=== PATIENT | female | born 1950 | race Caucasian/White ===

== ENCOUNTER 2019-07-23 01:44 | Day surgery (SDC) | payer MEDICARE, SELFPAY ==
[2019-07-08 11:46] VITALS: BMI 29.0
[2019-07-23] VITALS (10 sets, daily range): BP systolic 118–189; BP diastolic 59–85; PULSE 56–70; RESP 12–23; TEMP 36.6–36.7; O2SAT 94–100
--- NOTE | 2019-07-23 08:37 | WPDANESEPPF ---
Anes - Initial Pre Proc Eval Procedure: Operation Date: 07/23/19 09:30 Proposed Procedures p Laparoscopic Cholecystectomy, Possible Open - Boston Alvarez MD Date/Time: 07/23/19 08:37 Surgeon: Boston Alvarez MD Pre Op Diagnosis: Chronic Cholecystitis With Stones Patient Data Age: 68 Gender: F Height: 5 ft 6 in Weight: 77.2 kg Allergies Allergy/AdvReac Type Severity Reaction Status Date / Time atenolol Allergy Unknown Dyspnea / Verified 07/08/19 11:43 SOB iodine Allergy Unknown Other Verified 07/08/19 11:43 Penicillins Allergy Unknown Unknown Verified 07/08/19 11:43 - A CHILD Home Medications Medication Instructions Recorded Confirmed Type amlodipine 10 mg tablet 10 mg PO HS 05/01/19 07/08/19 History levothyroxine 75 mcg tablet 75 mcg PO DAILY 05/01/19 07/08/19 History magnesium gluconate 30 mg (550 mg) 30 mg PO DAILY 05/01/19 07/08/19 History tablet multivitamin 1 cap PO DAILY 05/01/19 07/08/19 History losartan-hydrochlorothiazide 1 tablet PO HS 07/08/19 07/08/19 History Patient hx anesthesia problems: none Family hx anesthesia problems: none [facility] Past Medical History Medical History 1st degree AV block Cholelithiases BRADLEY (dyspnea on exertion) Dyslipidemia Ectopic atrial rhythm Essential hypertension GERD (gastroesophageal reflux disease) Obstructive sleep apnea Surgical History Surgical History H/O: hysterectomy Hx of tonsillectomy S/P removal of thyroid nodule Family History Family History Father Family history of malignant neoplasm Grandparent Family history of Parkinson's disease Social History Social History Smoking status: Never smoker Alcohol intake: current Anes - Eval Final PreProcedure Day of Procedure 07/23/19 08:37 Patient weight: overweight Heart: regular rate and rhythm Lungs: clear to auscultation Airway: Mallampati scale class II Neurological: alert and oriented Last oral intake: >/= 8 hours ASA classification: II Emergent: no Anesthetic plan: proceed Anesthesia type and monitoring: general ETT and standard monitoring Informed Consent: The patient's anesthetic plan and its attendant risks and benefits were discussed with the patient/family/POA. Questions were solicited and answers provided to the satisfaction of the patient/family/POA.
[2019-07-23] MEDS: LACTATED RINGERS 1,000 ML 30 ML IV CONT ×2 (08:45→10:37)
--- NOTE | 2019-07-23 08:45 | WPDHPUPDATE1 ---
History and Physical Update Update Date/Time: 07/23/19 08:45 History and Physical has been reviewed, including an updated exam of the patient. There are NO changes in the patient's condition. Risks, benefits, and alternatives have been discussed and questions answered. Patient agrees to proceed with procedure.
--- NOTE | 2019-07-23 08:52 | PM.PROC ---
Procedure Note - Detailed Date of procedure: 07/23/19 Pre-op diagnosis: Chronic Cholecystitis With Stones Chronic cholecystitis, cholelithiasis Post-op diagnosis: same Procedure performed: Laparoscopic cholecystectomy Description of procedure: The patient was taken to surgery and induced into general anesthesia. The abdomen was prepped and draped. Trocars were placed in the usual fashion using 0.5% Marcaine with epinephrine and applied Medical optical trocars. A 5 millimeter camera was used. The gallbladder was decompressed with a laparoscopic aspirator. The cholecystotomy was closed with a Vicryl endo-loop. There were many stones in the gallbladder. There were numerous adhesions to the gallbladder which had to be taken down before we could retracted adequately. The gallbladder wall was thickened due to chronic inflammation. The gallbladder was retracted anterosuperiorly. Adhesions to the gallbladder were taken down so that the cholecystohepatic triangle was exposed. Traction was placed on the infundibulum. The cystic duct and cystic artery were dissected out very clearly. The gallbladder was dissected off the liver at its lower 3rd. Critical view was achieved. We securely clipped and divided the cystic duct and cystic artery. The gallbladder was then further retracted so that the peritoneal attachments to the liver could be divided. Once the gallbladder was freed entirely, it was placed in an Endo-Catch bag and retrieved through the 10 11 epigastric trocar site. The epigastric trocar was then replaced. We reviewed the right upper quadrant. It was irrigated and suctioned. All looked good with no evidence of bleeding or bile leakage. We evacuated CO2 and removed the trocar sleeves. The fascia at the epigastric trocar site was closed with 0 Vicryl suture. Skin wounds were closed with subcuticular 4 O Monocryl skin suture. The wounds were dressed with Exofin surgical adhesive. Patient was awakened and taken to recovery in good condition. Sponge and needle counts were correct x2. Anesthesia: GETA and local (0.5% Marcaine with epinephrine) Surgeon: Boston Alvarez MD Confidential Secretary: Rama OREILLYA Estimated blood loss (mL): 20 Drains: No Packing: No Pathology: yes (Gallbladder) Complications: None Condition: stable Disposition: PACU Findings: Chronic inflammation, many gallstones noted. No biliary ductal dilatation, no liver abnormalities.
[2019-07-23] MEDS: ceFAZolin 2 GM/D5W 50 ML 2 GM/50 ML BAG IVPB (09:23)
[2019-07-23] MEDS: BUPIVACAINE/EPINEPHRINE 0.5% 30 ML VIAL INFILTRATE (10:01)
--- NOTE | 2019-07-23 14:08 | SUR.PHASEII ---
1400- INSTRUCTIONS REVIEWED WITH PT EARLIER. IV REMOVED. PT CONTINUES TO PREFER TO STAY IN CHAIR UNTIL SORENESS IS GONE. RIDE IS IN THE ROOM. CHECKING WITH PT AT INTERVALS TO SEE IF READY TO GET DRESSED TO GO HOME.
== END 2019-07-23 14:50 | disposition home or self-care (01) ==
PROVIDERS: PCP Family Medicine; Visit Provider Surgery
PROC: 0FT44ZZ Resection of Gallbladder, Percutaneous Endoscopic Approach (ICD-10-PCS; CPT 47562; principal; 2019-07-23 09:30)
DX: K80.10 Calculus of gallbladder with chronic cholecystitis without obstruction (principal); I44.0 Atrioventricular block, first degree; I10 Essential (primary) hypertension; E78.5 Hyperlipidemia, unspecified; G47.33 Obstructive sleep apnea (adult) (pediatric); K21.9 Gastro-esophageal reflux disease without esophagitis
CPT/HCPCS: 47562; 36415; 80053; 82150; 82248; 83690; 86850; 86900; 86901; 88304; 93005; A9270; C1713; J0131; J0330; J0690; J1100; J2250; J2405; J2704; J2710; J3010; J7120

== ENCOUNTER 2019-08-06 07:59 | Outpatient (CLI) | payer MEDICARE, SELFPAY ==
--- NOTE | 2019-08-11 12:01 | SLEEP_ITS ---
Home Sleep Study DATE OF STUDY: 08/06/2019 REQUESTING PHYSICIAN: Anton Morales D.O. REASON FOR STUDY: Hypersomnia. HISTORY: This patient is a 68-year-old female, 5 feet 6 inches tall, weighing 170 pounds with a body mass index of 27.4. She does not feel that she has a sleep problem, but her physicians are concerned as she does have a prior history of sleep apnea and is not on treatment, has ectopic atrial rhythm and PAT, hypertension and did not tolerate atenolol due to nausea. Occasionally, she has very poor quality sleep. She says that this is a very temporary situation when it occurs. She denies awakening from short of breath or awakening from sleep with heartburn or belching. She does not know if she snores. Others do not complain about it. She rarely has trouble sleeping with a cold. She denies gasping for breath at night, sweating excessively at night, having palpitations at night, falling asleep during the day, involuntarily, while driving, denies loss of muscle tone with strong emotion, daytime difficulty due to excessive sleepiness. The feeling of paralysis when waking or falling asleep, vivid dream-like scenes upon awakening or falling asleep, fear going to sleep or nightmares. She rarely remembers her dreams, rarely has racing thoughts, rarely feels sad or depressed and rarely has anxiety. She denies muscular tension, does not notice parts of her body jerking, does not kick at night, does not have crawly achy feelings in the legs and does not have leg pain at night. She denies morning jaw pain since her dentist corrected her temporomandibular joint problems. She does not grind her teeth at night. She occasionally is bothered by pain during the day, but is a never awakened with pain at night. She rarely wakes up feeling stiff in the morning. She denies having sore achy muscles or waking with neck and spine pain. She only has memory problems when she is taking amlodipine. The same for concentration difficulties. Bedtime is 11 p.m., falling asleep within 10 to 15 minutes. She awakens during the night to reposition and roll over. She wakes in the morning between 7 and 8. Weekend schedule is the same. She does not take naps. MEDICAL COMORBIDITIES: Hay fever, hypertension, ectopic atrial rhythm with paroxysmal atrial tachycardia, dyslipidemia, first-degree AV block, history of obstructive sleep apnea syndrome per Dr. Morales's record. MEDICATIONS: 1. Levothyroxine 0.075 mg daily. 2. Losartan/hydrochlorothiazide 100/25 one daily. 3. Amlodipine was stopped due to memory issues. HABITS: Never smoked tobacco. One cup of coffee or tea daily. Rare alcohol. No recreational drugs. DESCRIPTION OF THE STUDY: On the [place] Sleepiness Scale, her score is 3. This was conducted as an unattended portable home sleep test with 4 channel monitoring including respiratory effort channel, snoring channel, oxygen saturation channel, and heart rate channel. The study was scored using [facility] guidelines. Duration of the study was 8 hours 28 minutes. The apnea-hypopnea index is 10.3. The oxygen desaturation index is 8.3. Lowest desaturation is 71%. She had 47 apneas. The majority, 41 apneas, 87% were obstructive, 4 apneas or 9% were central and 2 apneas or 4% were mixed. She had 40 hypopneas. She had 421 snoring events. She had 68 desaturations and spent 88 minutes or 18% of the study below 88% saturation. Heart rate ranged from 45 to 87. IMPRESSION: This home sleep test shows evidence of at least mild obstructive sleep apnea syndrome G47.88 with severe desaturation to a minimum of 71%, and 18% of the study or 88 minutes spent below 88% saturation. Home sleep test usually underestimates the degree of sleep-disordered breathing. Given her comorbidity of hyperten
== END 2019-08-06 08:00 | disposition home or self-care (01) ==
LOC: ANHCSM 07:59
PROVIDERS: PCP Family Medicine; Visit Provider Internal Medicine Cardiovascular Disease
DX: G47.33 Obstructive sleep apnea (adult) (pediatric) (principal)
CPT/HCPCS: 95806

== ENCOUNTER 2019-09-02 21:54 | Observation (INO) | payer MEDICARE, SELFPAY ==
--- NOTE | ~2019-09-02 | XR_ITS ---
EXAMINATION: XR chest 2V DATE: 09/02/2019 22:56 INDICATION: Right lateral chest pain TECHNIQUE: PA and lateral views of the chest are obtained. COMPARISON: None available FINDINGS: The lungs are free of acute opacities. There is no pleural effusion or pneumothorax. The ca rdiomediastinal silhouette is normal. There is moderate thoracic spondylosis. Surgical clips are note d in the midline upper abdomen. IMPRESSION: 1. No acute cardiopulmonary abnormality. Reviewed, dictated and finalized at location A.
[2019-09-02 21:56] VITALS: BP 235/118; PULSE 88; RESP 16; TEMP 36.9; O2SAT 99
--- NOTE | 2019-09-02 21:58 | ED.RECABL ---
HPI - Recheck/Abnormal Lab/Rx General Chief Complaint: Recheck/Abnormal Lab/Rx Stated Complaint: high bp Time Seen by Provider: 09/02/19 21:56 Source: patient and RN notes reviewed Mode of arrival: other Limitations: no limitations History of Present Illness HPI narrative: Pt is a 68 y/o female who presents to the ED with c/o hypertension that began earlier this afternoon. Pt notes that her PCP has been trying to find a new HTN medication. Pt recently started taking Carvedilol 3.125 mg after trying two other medications that did not work. She states that she has been taking Carvedilol for about 10 days now. Pt notes that she normally takes her blood pressure in the morning and takes her medication around 7-8 PM. She notes that her blood pressure has been running in the 130s. Pt denies taking her medication tonight because she was out with her friends. Pt states that she thought she was going to be earlier than what she thought she was. She notes that she brought her blood pressure cuff with her, but she did not bring her mediation. Pt also reports right lateral rib pain, but denies her pain increasing when eating or after eating. She denies any recent falls or any heavy lifting. Pt also denies nausea, vomiting, dyspnea, and abdominal pain. MD complaint: abnormal lab Returns today for: called because of abnormal lab/test Context: called for abnormal lab result Associated symptoms: other (right lateral rib pain) Related Data Home Medications Medication Instructions Recorded Confirmed levothyroxine 75 mcg tablet 75 mcg PO DAILY 05/01/19 08/22/19 carvedilol [Coreg] 3.125 mg PO HS 09/03/19 09/03/19 Allergies Allergy/AdvReac Type Severity Reaction Status Date / Time amlodipine Allergy Mild forgetfulln Verified 08/22/19 09:46 ess atenolol Allergy Unknown Dyspnea / Verified 08/22/19 09:46 SOB iodine Allergy Unknown Other Verified 08/22/19 09:46 Penicillins Allergy Unknown Unknown Verified 08/22/19 09:46 - A CHILD Review of Systems Review of Systems: All systems reviewed & are unremarkable except as noted in HPI and below Respiratory: Respiratory: Denies dyspnea Gastrointestinal: Gastrointestinal: Denies abdominal pain, Denies nausea and Denies vomiting Musculoskeletal: Musculoskeletal: Reports other (right lateral rib pain) [facility] Past Medical History Medical History (Updated 09/03/19 @ 01:10 by Seth Rivers MD) 1st degree AV block Cholelithiases Chronic cholecystitis with calculus BRADLEY (dyspnea on exertion) Dyslipidemia Ectopic atrial rhythm Essential hypertension GERD (gastroesophageal reflux disease) History of torn meniscus of right knee Hypersomnia Obstructive sleep apnea PAT (paroxysmal atrial tachycardia) Surgical History Surgical History (Updated 09/02/19 @ 22:04 by Sindhu Pacheco) H/O eye surgery H/O: hysterectomy Hx of tonsillectomy S/P removal of thyroid nodule Social History Social History (Updated 09/02/19 @ 22:22 by Sindhu Pacheco) Smoking status: Never smoker Second hand tobacco smoke exposure: Yes (dad smoked at home) Alcohol intake: never Substance use: never Substance use type: does not use Spiritual care concerns: No Agree to blood products: Yes Exam Const: General: healthy appearing, no acute distress, well developed and alert Orientation/consciousness: patient oriented x3 Limitations: no limitations HENMT: Head: normocephalic and atraumatic General nose exam: Normal external nose present Mouth: Yes oropharynx normal and Yes moist mucous membranes Chest: Chest palpation & inspection: tenderness Other: right lateral midaxillary line at the border of the abdome. Resp: Effort & Inspection: normal respiratory effort and able to speak in complete sentences Auscultation: clear to auscultation bilaterally Cardio: Rate: regular rate Rhythm: regular rhythm Peripheral pulses: radial pulses present and popliteal pulses present GI: GI Palp: Yes So
[2019-09-02 22:02] VITALS: BP 217/108; PULSE 78; RESP 15; TEMP 36.7; O2SAT 100
--- NOTE | 2019-09-02 22:31 | ECG_ITS ---
Measurements Intervals [place] Rate: 78 P: 31 ID: [id number] QRS: -6 QRSD: 109 T: 56 QT: 387 QTc: 441 Interpretive Statements SINUS RHYTHM WITH SINUS ARRHYTHMIA WITH FIRST DEGREE AV BLOCK POSSIBLE LEFT ATRIAL ENLARGEMENT ANTEROSEPTAL INFARCT, AGE INDETERMINATE BORDERLINE ST-T WAVE ABNORMALITY- LATERAL LEADS BASELINE ARTIFACT- II, III, AVR, AVF ABNORMAL ECG Electronically Signed On 09-03-2019 7:06:30 CDT by Anton Morales D.O.
[2019-09-02 22:43] VITALS: PULSE 81
[2019-09-02] MEDS: carvediloL 3.125 MG TABLET PO (22:43)
[2019-09-02] MEDS: ACETAMINOPHEN 325 MG TABLET 650 MG PO (22:43)
[2019-09-02] MEDS: LOSARTAN POTASSIUM 100 MG TABLET PO (22:44)
[2019-09-02] MEDS: hydroCHLOROthiazide 25 MG TABLET PO (22:44)
[2019-09-02 22:53] LABS: Basophils Percent Auto 0.3 % (0.2-1.2); Eosinophils Absolute Auto 0.1 K/mm3 (0-0.3); Hematocrit 43.1 % (37.0-47.0); Hemoglobin 14.4 g/dL (12.0-15.0); Immature Granulocyte Absolute 0.03 K/mm3 (0.00-0.031); Immature Granulocyte Percent A 0.3 % (0-0.5); Lymphocytes Absolute Auto 1.36 K/mm3 (0.9-3.2); Lymphocytes Percent Auto 13.8 % (18.3-44.2); Mean Corpuscular HGB Conc 33.4 g/dl (32-36); Mean Corpuscular Hemoglobin 29.4 pg (26-34); Mean Corpuscular Volume 88.1 fl (80-100); Monocytes Absolute Auto 0.5 K/mm3 (0.1-0.6); Monocytes Percent Auto 4.8 % (2.6-8.5); Neutrophils Absolute Auto 7.8 K/mm3 (1.3-6.7); Neutrophils Percent Auto 79.8 % (45.5-73.1); Platelet Count Result 357 k/mm3 (150-375); Red Blood Count 4.89 M/mm3 (4.2-5.4); Red Cell Distribution Width 13.1 % (11.5-14.5); White Blood Count 9.8 K/mm3 (4.5-10.0)
[2019-09-02 23:05] LABS: Blood Urea Nitrogen 17 mg/dL (7-17); Calcium 9.6 mg/dL (8.4-10.2); Carbon Dioxide 31 mmol/L (22-30); Chloride 99 mmol/L (98-107); Estimated CRCL calculation 58 ml/min; Estimated Glomerular Filt Rate > 60; Glucose 118 mg/dL (65-105); Potassium 3.2 mmol/L (3.4-5.0); Sodium 139 mmol/L (137-145)
[2019-09-02] MEDS: hydroCHLOROthiazide 25 MG TABLET (23:06)
[2019-09-02 23:07] VITALS: BP 199/105; PULSE 83; RESP 18; O2SAT 100
[2019-09-02 23:08] LABS: Prothrombin Time 12.6 Seconds (11.1-14.7)
[2019-09-02 23:09] LABS: Partial Thromboplastin Time 27.7 SECONDS (22.3-36.8)
[2019-09-02 23:43] LABS: Troponin I 0.109 ng/mL (0.000-0.034)
--- NOTE | 2019-09-02 23:44 | ECG_ITS ---
Measurements Intervals [place] Rate: 67 P: 29 NE: 218 QRS: -9 QRSD: 122 T: 32 QT: 421 QTc: 447 Interpretive Statements SINUS RHYTHM WITH FIRST DEGREE AV BLOCK POSSIBLE LEFT ATRIAL ENLARGEMENT INTRAVENTRICULAR CONDUCTION DELAY POSSIBLE LEFT VENTRICULAR HYPERTROPHY INFERIOR INFARCT, AGE INDETERMINATE BORDERLINE ST-T WAVE ABNORMALITY- LATERAL LEADS ABNORMAL ECG Electronically Signed On 09-03-2019 7:07:43 CDT by Anton Morales D.O.
[2019-09-02 23:58] VITALS: BP 155/109; PULSE 64; RESP 16; O2SAT 97
[2019-09-03] VITALS (11 sets, daily range): BP systolic 128–186; BP diastolic 65–98; PULSE 53–73; RESP 14–19; TEMP 36.4–37.1; O2SAT 98–100; BMI 27.3
--- NOTE | 2019-09-03 | ECHO_ITS ---
Patient Info Name: Ashley Sebastian Age: 68 years : 1950 Gender: Female Ht: 65 in Wt: 172 lbs BSA: 1.91 m2 HR: 78 bpm BP: 141 / 59 mmHg Technical Quality: Good Exam Date: 09/03/2019 12:16 PM Exam Location: [facility] Pulmonary Exam Room: [facility] Patient Status: Inpatient Admit Date: 09/03/2019 Staff Ordering Physician: Anton Morales DO [employer] Machine Operator: Carolina Cruz RDCS Attending Provider: Anton Morales DO Exam Type: CA echo doppler color flow Study Info Indications - elevated troponins Complete two-dimensional, color flow and Doppler transthoracic echocardiogram is performed. Summary 1. Left ventricular chamber dimension is normal. 2. Left ventricular systolic function is normal, estimated at 65-70%. 3. There is moderately increased left ventricular wall thickness. 4. The left ventricular diastolic function is grade I diastolic dysfunction. 5. E/e' 15 is elevated. 6. Left atrial chamber dimension is severely enlarged. 7. There is mild aortic valve sclerosis. 8. There is mild aortic valve regurgitation. 9. There is mild mitral valve regurgitation. 10. There is trace tricuspid valve regurgitation. 11. No pulmonary hypertension, estimated pulmonary arterial systolic pressure is 30 mmHg. Left Ventricle E/e' 15 is elevated. Left ventricular chamber dimension is normal. Left ventricular systolic function is normal, estimated at 65-70%. There is moderately increased left ventricular wall thickness. The left ventricular diastolic function is grade I diastolic dysfunction. Right Ventricle Right ventricular chamber dimension is normal. Right ventricular systolic function is normal. Left Atria Left atrial chamber dimension is severely enlarged. Right Atria Right atrial chamber dimension is normal. Aortic Valve The aortic valve is trileaflet. There is mild aortic valve sclerosis. There is no aortic valve stenosis. There is mild aortic valve regurgitation. Pulmonic Valve There is no pulmonic regurgitation. Mitral Valve There is no mitral valve stenosis. There is mild mitral valve regurgitation. Tricuspid Valve There is trace tricuspid valve regurgitation. No pulmonary hypertension, estimated pulmonary arterial systolic pressure is 30 mmHg. Pericardium/Pleural There is small circumferential pericardial effusion. Inferior Vena Cava Normal inferior vena cava with >50% collapse upon inspiration consistent with normal right atrial pressure, 5 mmHg. Aorta The aortic root size at the sinus of Valsalva is normal. Left Ventricular Outflow Tract Name Value Normal LVOT 2D LVOT Diameter 2.0 cm LVOT Doppler LVOT Peak Gradient 5 mmHg LVOT Mean Gradient 3 mmHg LVOT VTI 22 cm LVOT VTI/AV VTI Ratio 1.1 LVOT Stroke Volume 69 ml LVOT CO 15.7 l/min LVOT CI 8.2 l/min/m2 Pulmonic Valve Name
--- NOTE | 2019-09-03 00:56 | ADMGEN ---
This patient, Ashley Sebastian, was admitted to IMU Room 232-01. Patient/family oriented to hospital policies and general routines including ID bracelet, bed and alarms, visiting hours, pain management, procedures, bathroom and other care routines, personal items, smoking policy, room service/diet, and visiting hours. Valuables list has been completed. Information on how to activate the Rapid Response Team has been discussed. Patient/Family are encouraged to report perceived risks to care and to ask questions if they do not understand what they are told or what they should do.
[2019-09-03 03:17] LABS: Troponin I 0.224 ng/mL (0.000-0.034)
[2019-09-03 06:28] LABS: Troponin I 0.281 ng/mL (0.000-0.034)
--- NOTE | 2019-09-03 08:11 | PM.IMHP ---
H&P: HPI History of Present Illness Chief complaint: MALIGNANT HTN,ELEVATED TROPONIN Narrative: Ashley Sebastian is a 68 year old female 68 yr old woman who is my regular cardiology patient with a history of hypertension presents to hospital due to high BP. She reports that yesterday afternoon she had pain in right lower rib that was uncomfortable. She checked her BP and it was high though she cannot recall the number. She called a medicare number and was told she should go to ER for evaluation. Upon arrival to ED her BP was 235/118 mmHg. She states she thought she was supposed to take Coreg once a day instead of the normal twice a day. Currently she denies right lateral rib pain. Denies chest pain, sob, palpitations, dizziness, edema. Troponins were checked and was mildly elevated and trending up at 0.109 to 0.224 to 0.284. EKG shows borderline ST abnormality in lateral leads. She had Lexiscan myoview on 05/14/19 that was negative for ischemia. Echo on 04/16/19 EF 60-65%, grade I diastolic dysfunction, mild LVE/LAE, mild AI/MR. Review of Systems Review of Systems: All systems reviewed & are unremarkable except as noted in HPI and below Constitutional: Constitutional: Reports as per HPI and Denies chills Cardiovascular: Cardiovascular: Reports as per HPI, Denies chest pain, Denies irregular heart rhythm, Denies leg edema and Denies orthopnea Respiratory: Respiratory: Reports as per HPI and Denies dyspnea Gastrointestinal: Gastrointestinal: Reports as per HPI and Denies abdominal pain Genitourinary: Genitourinary: Reports as per HPI and Denies urinary frequency Neurologic: Reports as per HPI and Denies syncope [facility] Past Medical History Medical History (Updated 09/03/19 @ 01:10 by Seth Rivers MD) 1st degree AV block Cholelithiases Chronic cholecystitis with calculus BRADLEY (dyspnea on exertion) Dyslipidemia Ectopic atrial rhythm Essential hypertension GERD (gastroesophageal reflux disease) History of torn meniscus of right knee Hypersomnia Obstructive sleep apnea PAT (paroxysmal atrial tachycardia) Surgical History Surgical History (Updated 09/02/19 @ 22:04 by Sindhu Pacheco) H/O eye surgery H/O: hysterectomy Hx of tonsillectomy S/P removal of thyroid nodule Social History Social History (Updated 09/02/19 @ 22:22 by Sindhu Pacheco) Smoking status: Never smoker Second hand tobacco smoke exposure: Yes (dad smoked at home) Alcohol intake: never Substance use: never Substance use type: does not use Spiritual care concerns: No Agree to blood products: Yes Meds Home Medications and Allergies Home Medications Medication Instructions Recorded Confirmed Type levothyroxine 75 mcg tablet 75 mcg PO DAILY 05/01/19 09/03/19 History losartan 100 1 tablet PO HS #90 tablet 07/29/19 09/03/19 Rx mg-hydrochlorothiazide 25 mg tablet carvedilol [Coreg] 3.125 mg PO HS 09/03/19 09/03/19 History Allergies Allergy/AdvReac Type Severity Reaction Status Date / Time amlodipine Allergy Mild forgetfulln Verified 08/22/19 09:46 ess atenolol Allergy Unknown Dyspnea / Verified 08/22/19 09:46 SOB iodine Allergy Unknown Other Verified 08/22/19 09:46 Penicillins Allergy Unknown Unknown Verified 08/22/19 09:46 - A CHILD Vital Signs Vital Signs - 24 hr 09/02/19 21:56 09/02/19 22:02 09/02/19 22:43 Temperature 98.4 F 98.1 F Pulse Rate 88 78 81 Respiratory Rate 16 15 Blood Pressure 235/118 H 217/108 H Pulse Oximetry 99 100 09/02/19 23:07 09/02/19 23:58 09/03/19 00:41 Temperature Pulse Rate 83 64 61 Respiratory Rate 18 16 19 Blood Pressure 199/105 H 155/109 H 175/98 H Pulse Oximetry 100 97 100 09/03/19 00:50 09/03/19 02:00 09/03/19 02:45 Temperature 98.8 F Pulse Rate 73 59 L 62 Respiratory Rate 18 Blood Pressure 186/80 H 135/93 H Pulse Oximetry 98 09/03/19 04:00 09/03/19 06:00 Temperature 97.6 F Pulse Rate 63 53 L Respiratory Rate 1
[2019-09-03] MEDS: POTASSIUM CHLORIDE 20 MEQ TABLET 40 MEQ PO (08:50)
[2019-09-03] MEDS: hydroCHLOROthiazide 25 MG TABLET PO (10:01)
[2019-09-03] MEDS: carvediloL 3.125 MG TABLET PO (10:01)
[2019-09-03] MEDS: LEVOTHYROXINE SODIUM 75 MCG TABLET PO (10:54)
[2019-09-03 12:20] LABS: Magnesium 1.9 mg/dL (1.6-2.3)
[2019-09-03 12:33] LABS: Troponin I 0.197 ng/mL (0.000-0.034)
--- NOTE | 2019-09-03 14:30 | PM.DS ---
DS: Diagnosis Admitting Diagnosis Admitting Diagnosis: Essential (primary) hypertension 68 yr woman with a history of hypertension presented to hospital with right sided rib pain and she had very high BP at home. Upon presenting to ED her BP was 235 systolic and found to have mildly elevated troponins. Echo did not show any wall motion abnormality so this is probably hypertension related. She no longer had right lower rib pain. BP went down to 140-150 systolic. Patient is dischaged home. Diet: Heart healthy. F/U: with me in 2 weeks. Activity: As tolerated. DS: Summary Time Spent with Patient Time attestation: Total time spent providing and/or coordinating discharge services: DS: Data Data Completed and Pending Labs on day of discharge: Labs from last 24 hours 09/03/19 09/03/19 09/03/19 12:01 12:01 05:40 WBC RBC Hgb Hct MCV MCH MCHC RDW Plt Count MPV Immature Gran % (Auto) Neut % (Auto) Lymph % (Auto) Mcclain % (Auto) Eos % (Auto) Baso % (Auto) Lymph # (Auto) Mcclain # (Auto) Eos # (Auto) Baso # (Auto) Abs Immat Gran (auto) Absolute Neuts (auto) Absolute Nucleated RBC Nucleated RBC % PT INR APTT Sodium Potassium Chloride Carbon Dioxide BUN Creatinine Estim Creat Clear Calc Estimated GFR Glucose Calcium Magnesium 1.9 Troponin I 0.197 H* D 0.281 H* D 09/03/19 09/02/19 09/02/19 01:55 22:47 22:47 WBC RBC Hgb Hct MCV MCH MCHC RDW Plt Count MPV Immature Gran % (Auto) Neut % (Auto) Lymph % (Auto) Mcclain % (Auto) Eos % (Auto) Baso % (Auto) Lymph # (Auto) Mcclain # (Auto) Eos # (Auto) Baso # (Auto) Abs Immat Gran (auto) Absolute Neuts (auto) Absolute Nucleated RBC Nucleated RBC % PT 12.6 INR 1.0 APTT 27.7 Sodium 139 Potassium 3.2 L Chloride 99 Carbon Dioxide 31 H BUN 17 Creatinine 0.80 Estim Creat Clear Calc 58 Estimated GFR > 60 Glucose 118 H Calcium 9.6 Magnesium Troponin I 0.224 H* D 0.109 H* 09/02/19 22:47 WBC 9.8 RBC 4.89 Hgb 14.4 Hct 43.1 MCV 88.1 MCH 29.4 MCHC 33.4 RDW 13.1 Plt Count 357 MPV 9.0 Immature Gran % (Auto) 0.3 Neut % (Auto) 79.8 H Lymph % (Auto) 13.8 L Mcclain % (Auto) 4.8 Eos % (Auto) 1.0 Baso % (Auto) 0.3 Lymph # (Auto) 1.36 Mcclain # (Auto) 0.5 Eos # (Auto) 0.1 Baso # (Auto) 0.0 Abs Immat Gran (auto) 0.03 Absolute Neuts (auto) 7.8 H Absolute Nucleated RBC 0.0 Nucleated RBC % 0.0 PT INR APTT Sodium Potassium Chloride Carbon Dioxide BUN Creatinine Estim Creat Clear Calc Estimated GFR Glucose Calcium Magnesium Troponin I Discharge Plan Discharge Attending physician on discharge: Anton Morales Discharging Clinician: Anton Morales Patient Disposition: Home, Self-Care Activity: as tolerated Diet: heart healthy Patient Instructions: Antibiotic Form, Chronic Hypertension (DC) Stand Alone Forms: General Discharge Information Follow-up/Referrals: Anton Morales DO [Physician] - 09/17/19 (Around 2 weeks) Discharge Medications: New carvedilol [Coreg] 6.25 mg Tablet 6.25 mg PO Q12HR RF: 0 Continued levothyroxine [Euthyrox] 75 mcg tablet 75 mcg PO DAILY RF: 0 losartan-hydrochlorothiazide 100-25 mg tablet 1 tablet PO HS Qty: 90 RF: 1 Discontinued carvedilol [Coreg] 3.125 mg tablet 3.125 mg PO HS RF: 0 Date of admission: 09/03/19 00:06 Primary Care Provider: Bhavna Carroll Admitting Provider: Anton Morales Attending physician on admission: Anton Morales Condition: Stable
== END 2019-09-03 15:11 | disposition home or self-care (01) ==
LOC: ANHED 22:30 → ANHIMU 09-03 00:17
PROVIDERS: Admitting Provider Internal Medicine Cardiovascular Disease; Emergency Provider Emergency Medicine; PCP Family Medicine; Visit Provider Internal Medicine Cardiovascular Disease
DX: I10 Essential (primary) hypertension (principal); R79.89 Other specified abnormal findings of blood chemistry; R07.81 Pleurodynia; I47.1 Supraventricular tachycardia; E78.5 Hyperlipidemia, unspecified; G47.33 Obstructive sleep apnea (adult) (pediatric); G47.10 Hypersomnia, unspecified; I44.0 Atrioventricular block, first degree; Z79.899 Other long term (current) drug therapy
CPT/HCPCS: 36415; 71046; 80048; 83735; 84484; 85025; 85610; 85730; 93005; 93306; 96374; 99285; A9270; G0378

== ENCOUNTER 2019-09-11 23:04 | Emergency (ER) | payer MEDICARE, SELFPAY ==
[2019-09-11] VITALS (10 sets, daily range): BP systolic 184–208; BP diastolic 80–98; PULSE 56–66; RESP 15–21; TEMP 37.1; O2SAT 95–99
--- NOTE | 2019-09-11 23:17 | ED.RECABL ---
HPI - Recheck/Abnormal Lab/Rx General Chief Complaint: Recheck/Abnormal Lab/Rx Stated Complaint: high blood pressure Time Seen by Provider: 09/11/19 23:10 Source: patient Mode of arrival: ambulatory Limitations: no limitations History of Present Illness HPI narrative: Pt is a 68 y/o female who presents to the ED with c/o high BP. She notes a H/O HTN and is being managed by blueprinting and photocopy supervisor, Dr. Morales. She is taking Carvedilol BID and Losartan. Pt took her second dose of Carvedilol at 1999, but her BP has been in the 190's. She notes that her BP is normally in the 130's. Pt denies any CP, SOB, GARCIA, fever, or cough. Pt was seen in the ED last week for the same complaint and she has been checking her BP at home often. complaint: other (high BP) Returns today for: other (high BP) Symptoms since prior visit: no new symptoms Context: other (BP is being monitored by Dr. Morales) Associated symptoms: none Related Data Home Medications Medication Instructions Recorded Confirmed levothyroxine 75 mcg tablet 75 mcg PO DAILY 05/01/19 09/04/19 Allergies Allergy/AdvReac Type Severity Reaction Status Date / Time amlodipine Allergy Mild forgetfulln Verified 09/11/19 23:14 ess atenolol Allergy Unknown Dyspnea / Verified 09/11/19 23:14 SOB iodine Allergy Unknown Other Verified 09/11/19 23:14 Penicillins Allergy Unknown Unknown Verified 09/11/19 23:14 - A CHILD Review of Systems Review of Systems: All systems reviewed & are unremarkable except as noted in HPI and below Constitutional: Constitutional: Denies fever(s) Cardiovascular: Cardiovascular: Denies chest pain Respiratory: Respiratory: Denies cough and Denies dyspnea Neurologic: Denies headache(s) [facility] Past Medical History Medical History 1st degree AV block Cholelithiases Chronic cholecystitis with calculus BRADLEY (dyspnea on exertion) Dyslipidemia Ectopic atrial rhythm Essential hypertension GERD (gastroesophageal reflux disease) History of torn meniscus of right knee Hypersomnia Obstructive sleep apnea PAT (paroxysmal atrial tachycardia) Surgical History Surgical History H/O eye surgery H/O: hysterectomy Hx of tonsillectomy S/P removal of thyroid nodule Social History Social History Smoking status: Never smoker Second hand tobacco smoke exposure: Yes (dad smoked at home) Alcohol intake: never Substance use: never Substance use type: does not use Spiritual care concerns: No Agree to blood products: Yes Exam Narrative: Exam Narrative: APPEARANCE: No acute distress, nontoxic, resting in bed EYES: EOMI HEENT: Normocephalic, atraumatic, OMM RESPIRATORY: No respiratory distress Clear to auscultation bilaterally with no rhonchi wheezing or rales. CARDIOVASCULAR: Regular rate and rhythm without murmurs rubs or gallops. ABDOMINAL: Soft, nontender, nondistended, no rebound or guarding MUSCULOSKELETAl: Moves all extremities. No clubbing, cyanosis or edema. NEURO: Awake and alert. Following commands, speech normal, no focal deficits SKIN:: Warm, dry. No rashes lesions or abrasions PSYCHIATRIC: Normal affect/mood, Course Course Emergency Course: Reviewed old records Discussed with patient results of workup and diagnosis. Discussed need for follow-up with primary care, proper use of medication, and reasons to return to the emergency department. Patient understands and agrees to current treatment plan Consultations Consultation #1: Discussed case with Dr. Morales, the blueprinting and photocopy supervisor. Wants to start pt on 50mg hydralazine TID and D/C home. Date: 09/12/19 Time: 00:22 Vital Signs Vital signs: Vital Signs Temperature 98.8 F 09/11/19 23:10 Pulse Rate 60 09/11/19 23:10 Respiratory Rate 20 09/11/19 23:10 Blood Pressure 202/98 H 09/11/19 23:10 Pulse Oximetry 98 09/11/19 23:10 Temperatur
[2019-09-12] VITALS (12 sets, daily range): BP systolic 130–187; BP diastolic 71–89; PULSE 54–63; RESP 12–23; O2SAT 96–99
[2019-09-12] MEDS: CLONIDINE HCL 0.1 MG TABLET PO (00:27)
--- NOTE | 2019-09-12 01:57 | PC.NURSE ---
At discharge, patient states I am actually having trouble reading those. That's weird. I normally don't have issues with it. Last week when I was here it wasn't a problem. Patient states her vision is now blurry I guess. It wasn't like that last week. EDP notified and in room.
--- NOTE | 2019-09-12 02:13 | PC.NURSE ---
This nurse went back into room and patient states she no longer has the blurry vision. Patient states she is ready to go home.
== END 2019-09-12 02:16 | disposition home or self-care (01) ==
PROVIDERS: Emergency Provider Emergency Medicine; PCP Family Medicine
DX: I10 Essential (primary) hypertension (principal); E78.5 Hyperlipidemia, unspecified; K21.9 Gastro-esophageal reflux disease without esophagitis; G47.33 Obstructive sleep apnea (adult) (pediatric); G47.10 Hypersomnia, unspecified; Z77.22 Contact with and (suspected) exposure to environmental tobacco smoke (acute) (chronic)
CPT/HCPCS: 99283; A9270

== ENCOUNTER 2019-09-26 23:16 | Emergency (ER) | payer MEDICARE, SELFPAY ==
--- NOTE | ~2019-09-26 | CT_ITS ---
EXAMINATION: CT brain wo con DATE: 09/27/2019 00:00 INDICATION: Dizziness. TECHNIQUE: Computed tomography (CT) of the head was performed without intravenous contrast. The mA wa s adjusted according to patient size. Iterative reconstruction technique was employed. The dose-lengt h product was 605.33 mGy-cm. COMPARISON: None FINDINGS: There is a small volume of hyperechoic acute subarachnoid hemorrhage in left sylvian fissur e. There is an old lacunar infarct in left lentiform nucleus. There is no acute ischemic infarct or a bnormal mass lesion. The ventricles are normal in size. There is mild mucosal thickening in the paran merary sinuses. The orbits are normal. The mastoid air cells are normal. IMPRESSION: 1. Small volume of acute subarachnoid hemorrhage in left sylvian fissure. Dr. Jasso discussed this c ase with Dr. Roy on 09/27/19 at 12:44 AM. 2. Old lacunar infarct in left lentiform nucleus. Reviewed, dictated and finalized at location A. IMPRESSION: 1. Small volume of acute subarachnoid hemorrhage in left sylvian fissure. Dr. Kayla villarreal discussed this case with Dr. Roy on 09/27/19 at 12:44 AM. 2. Old lacunar infarct in left lentiform nucleus.
--- NOTE | ~2019-09-26 | XR_ITS ---
EXAMINATION: XR chest 1V portable DATE: 09/27/2019 00:05 INDICATION: Generalized chest pain. TECHNIQUE: A single frontal view of the chest was obtained. COMPARISON: Chest 2 views 09/02/2019, left shoulder radiographs 03/13/2006, thyroid ultrasound 10/16/2017 FINDINGS: The chest demonstrates clear lungs without pneumonia, pleural effusion, or pneumothorax. Th e heart size is normal. There is a mass in left superior mediastinum with rightward displacement of t he trachea. IMPRESSION: 1. Unchanged mass in the left superior mediastinum with rightward displacement of the trachea, likely a goiter. Reviewed, dictated and finalized at location A.
[2019-09-26 23:25] VITALS: BP 210/101; PULSE 81; RESP 19; TEMP 37; O2SAT 99
--- NOTE | 2019-09-26 23:39 | ECG_ITS ---
Measurements Intervals [place] Rate: 71 P: 62 AL: 206 QRS: 26 QRSD: 104 T: 47 QT: 393 QTc: 428 Interpretive Statements SINUS RHYTHM POSSIBLE LEFT ATRIAL ENLARGEMENT ANTEROSEPTAL INFARCT, AGE INDETERMINATE ABNORMAL ECG Electronically Signed On 09-27-2019 7:47:39 CDT by Anton Morales D.O.
--- NOTE | 2019-09-26 23:40 | ED.GENADULT ---
HPI - General Adult General Chief complaint: Recheck/Abnormal Lab/Rx Stated complaint: hi b/p - recheck Time Seen by Provider: 09/26/19 23:20 Source: RN notes reviewed History of Present Illness HPI narrative: Patient presents emergency department from home for hypertension. Patient states that her blood pressures been running high all day with pressures consistently in the 200s systolically. Patient states that with this she has had some intermittent lightheadedness as well as intermittent short miss of breath. Patient also notes some mild left-sided chest discomfort is been intermittent that she is only noticed today. Patient states she took all of her evening medications around 7 PM tonight. She has been seen in the emergency department twice prior in the past month for her elevated blood pressure and has been following with Dr. felix who manages her medications. Patient denies any fevers or chills vision changes numbness or tingling in the extremities nausea vomiting or any other symptoms Related Data Home Medications Medication Instructions Recorded Confirmed levothyroxine 75 mcg tablet 75 mcg PO DAILY 05/01/19 09/04/19 hydralazine 50 mg PO TID 09/26/19 Allergies Allergy/AdvReac Type Severity Reaction Status Date / Time amlodipine Allergy Mild forgetfulln Verified 09/26/19 23:28 ess atenolol Allergy Unknown Dyspnea / Verified 09/26/19 23:28 SOB iodine Allergy Unknown Other Verified 09/26/19 23:28 Penicillins Allergy Unknown Unknown Verified 09/26/19 23:28 - A CHILD Review of Systems Review of Systems: Narrative: Gen.: Denies fevers or chills Eyes: Denies eye pain or visual change ENT: Denies congestion Respiratory: Reports shortness of breath CV: Reports intermittent mild chest discomfort GI: Denies abdominal pain nausea, emesis or diarrhea denies burning, urgency, frequency or hematuria Musculoskeletal: Denies back pain or muscle pain Neuro: Denies numbness, tingling, weakness reports feeling lightheaded Skin: Denies rash Except as documented, all other systems reviewed and negative [facility] Past Medical History Medical History 1st degree AV block Cholelithiases Chronic cholecystitis with calculus BRADLEY (dyspnea on exertion) Dyslipidemia Ectopic atrial rhythm Essential hypertension GERD (gastroesophageal reflux disease) History of torn meniscus of right knee Hypersomnia Obstructive sleep apnea PAT (paroxysmal atrial tachycardia) Social History Social History Smoking status: Never smoker Second hand tobacco smoke exposure: Yes (dad smoked at home) Alcohol intake: never Substance use: never Substance use type: does not use Spiritual care concerns: No Agree to blood products: Yes Exam Narrative: Exam Narrative: APPEARANCE: No acute distress, nontoxic, resting in bed EYES: PERRL HEENT: Normocephalic, atraumatic, OMM RESPIRATORY: No respiratory distress Clear to auscultation bilaterally with no rhonchi wheezing or rales. CARDIOVASCULAR: Regular rate and rhythm without murmurs rubs or gallops. ABDOMINAL: Soft, nontender, nondistended, no rebound or guarding MUSCULOSKELETAl: Moves all extremities. No clubbing, cyanosis or edema. NEURO: Awake and alert. Following commands, speech normal, no focal deficits SKIN:: Warm, dry. No rashes lesions or abrasions PSYCHIATRIC: Normal affect/mood, Course Course Emergency Course: Discussed with patient need for transfer request Annie at this time Discussed with Dr. Sinclair for neurosurgery at [facility]. Request patient be transferred to the emergency department. Request systolic blood pressures be kept under 160 and requests nicardipine drip if blood pressures become elevated again Patient's blood pressures have become elevated again we will start a Cardene drip Discussed with Dr. Hudson at [facility] emergency de
--- NOTE | 2019-09-26 23:52 | PC.NURSE ---
Pt to radiology.
[2019-09-26 23:59] LABS: Basophils Absolute Auto 0.1 K/mm3 (0.0-0.1); Basophils Percent Auto 0.6 % (0.2-1.2); Eosinophils Absolute Auto 0.3 K/mm3 (0-0.3); Eosinophils Percent Auto 3.3 % (0-4.4); Hematocrit 40.2 % (37.0-47.0); Hemoglobin 13.5 g/dL (12.0-15.0); Immature Granulocyte Absolute 0.04 K/mm3 (0.00-0.031); Immature Granulocyte Percent A 0.4 % (0-0.5); Lymphocytes Absolute Auto 1.56 K/mm3 (0.9-3.2); Lymphocytes Percent Auto 16.7 % (18.3-44.2); Mean Corpuscular HGB Conc 33.6 g/dl (32-36); Mean Corpuscular Hemoglobin 29.7 pg (26-34); Mean Corpuscular Volume 88.5 fl (80-100); Monocytes Absolute Auto 0.6 K/mm3 (0.1-0.6); Monocytes Percent Auto 6.7 % (2.6-8.5); Neutrophils Absolute Auto 6.8 K/mm3 (1.3-6.7); Neutrophils Percent Auto 72.3 % (45.5-73.1); Platelet Count Result 347 k/mm3 (150-375); Red Blood Count 4.54 M/mm3 (4.2-5.4); Red Cell Distribution Width 13.2 % (11.5-14.5); White Blood Count 9.4 K/mm3 (4.5-10.0)
--- NOTE | 2019-09-27 00:02 | PC.NURSE ---
Pt returned from radiology, resting on stretcher in [facility], call light within reach.
[2019-09-27 00:05] VITALS: BP 184/93; PULSE 70; RESP 16; O2SAT 99
[2019-09-27 00:09] LABS: INR 1.1; Prothrombin Time 13.5 Seconds (11.1-14.7)
[2019-09-27 00:10] LABS: Blood Urea Nitrogen 13 mg/dL (7-17); Calcium 8.9 mg/dL (8.4-10.2); Carbon Dioxide 27 mmol/L (22-30); Chloride 104 mmol/L (98-107); Estimated CRCL calculation 59 ml/min; Estimated Glomerular Filt Rate > 60; Glucose 111 mg/dL (65-105); Partial Thromboplastin Time 30.3 SECONDS (22.3-36.8); Potassium 3.7 mmol/L (3.4-5.0); Sodium 138 mmol/L (137-145)
[2019-09-27 00:21] LABS: Troponin I 0.027 ng/mL (0.000-0.034)
[2019-09-27 00:35] VITALS: BP 164/79; PULSE 65; RESP 14; O2SAT 99
--- NOTE | 2019-09-27 00:48 | PC.NURSE ---
MD at bedside to update patient on results.
--- NOTE | 2019-09-27 01:20 | PC.NURSE ---
Patient ambulated to restroom and back with a steady gait.
[2019-09-27] MEDS: niCARdipine 20 MG/200 ML 20 MG/200 ML BAG 50 MG IV CONT (01:34)
--- NOTE | 2019-09-27 01:39 | PC.NURSE ---
Per MD, goal of SBP <160.
[2019-09-27 01:41] VITALS: BP 184/95; PULSE 88; RESP 20; O2SAT 98
[2019-09-27 01:50] VITALS: BP 160/83; PULSE 81; RESP 18; O2SAT 97
--- NOTE | 2019-09-27 01:53 | PC.NURSE ---
Called [facility] at 0140 to transport patient [facility] declined. Called [facility] at 0148. ETA 0230 [facility] called back at 0154 and update ETA to 15-20 minutes.
[2019-09-27 01:59] VITALS: BP 158/77; PULSE 92; RESP 20; O2SAT 97
[2019-09-27 02:18] VITALS: BP 160/83; PULSE 80; RESP 20; O2SAT 98
== END 2019-09-27 02:26 | disposition short-term general hospital (02) ==
PROVIDERS: Emergency Provider Emergency Medicine; PCP Family Medicine
DX: I60.9 Nontraumatic subarachnoid hemorrhage, unspecified (principal); I10 Essential (primary) hypertension; Z77.22 Contact with and (suspected) exposure to environmental tobacco smoke (acute) (chronic); E78.5 Hyperlipidemia, unspecified; K21.9 Gastro-esophageal reflux disease without esophagitis; G47.33 Obstructive sleep apnea (adult) (pediatric); R94.31 Abnormal electrocardiogram [ECG] [EKG]; R91.8 Other nonspecific abnormal finding of lung field
CPT/HCPCS: 36415; 70450; 71045; 80048; 84484; 85025; 85610; 85730; 93005; 96365; 99291

== ENCOUNTER 2019-10-02 00:52 | Observation (INO) | payer MEDICARE, SELFPAY ==
[2019-10-02] VITALS (19 sets, daily range): BP systolic 108–203; BP diastolic 52–99; PULSE 51–85; RESP 16–18; TEMP 36.6–37.2; O2SAT 96–99; BMI 26.6
--- NOTE | ~2019-10-02 | CT_ITS ---
EXAMINATION: CT brain wo con DATE: 10/02/2019 01:42 INDICATION: Intracranial hemorrhage. TECHNIQUE: Computed tomography (CT) of the head was performed without intravenous contrast. The mA wa s adjusted according to patient size. Iterative reconstruction technique was employed. The dose-lengt h product was 605.33 mGy-cm. COMPARISON: Head CT 09/26/2019 FINDINGS: There are 2 hyperdense masses in the left insula, each measuring 7 mm. There is no acute is chemic infarct. There is an old lacunar infarct in the left lentiform nucleus. The ventricles are nor mal in size. The orbits are normal. There is mild mucosal thickening in the paranasal sinuses. The ma stoid air cells are normal. IMPRESSION: 1. Unchanged hyperdense masses in the left insula previously reported as acute subarachnoid hemorrhag e. These findings may be dystrophic calcifications, neoplasms, or less likely small hematomas. Brain MRI without and with contrast is recommended. Reviewed, dictated and finalized at location A. IMPRESSION: 1. Unchanged hyperdense masses in the left insula previously reported as acute subarachnoid hemorrhage. These findings may be dystrophic calcifications, neopl asms, or less likely small hematomas. Brain MRI without and with contrast is re commended.
--- NOTE | ~2019-10-02 | XR_ITS ---
EXAMINATION: XR chest 2V DATE: 10/02/2019 02:20 INDICATION: Palpitations. TECHNIQUE: Frontal and lateral views of the chest were obtained. COMPARISON: Chest single view 09/27/2019 FINDINGS: A calcified left lung nodule is consistent with old granulomatous disease. There is mild at electasis in left lower lung zone. No pleural effusion or pneumothorax. The heart size is normal. The re is a mass in left superior mediastinum with rightward shift of the trachea. Surgical clips in the right upper quadrant are likely from cholecystectomy. IMPRESSION: 1. Mild atelectasis in left lower lung zone. 2. Mass in left superior mediastinum with rightward shift of the trachea, likely a goiter. Reviewed, dictated and finalized at location A. IMPRESSION: 1. Mild atelectasis in left lower lung zone. 2. Mass in left superior mediastinum with rightward shift of the trachea, likel y a goiter.
--- NOTE | ~2019-10-02 | US_ITS ---
EXAMINATION: US retroperitoneal duplex ltd DATE: 10/02/2019 09:32 INDICATION: Hypertension. TECHNIQUE: Multiple grayscale, color Doppler, and pulsed Doppler images of the kidneys and renal mariza cheryl were obtained. COMPARISON: Ultrasound 01/14/2019 FINDINGS: The aorta peak systolic velocity is 133 cm/s. The kidneys are normal in size. The right renal artery peak systolic velocity is 44 cm/s in the proximal segment, 55 cm/s in the mid segment, and 64 cm/s in the distal segment. The left renal artery peak systolic velocity is 115 cm/s in the proximal segment , 79 cm/s in the mid segment, and 43 cm/s in the distal segment. IMPRESSION: 1. No Doppler evidence of renal artery stenosis. Reviewed, dictated and finalized at location A.
--- NOTE | 2019-10-02 01:01 | ED.GENADULT ---
HPI - General Adult General Chief complaint: Recheck/Abnormal Lab/Rx Stated complaint: hi b/p Time Seen by Provider: 10/02/19 01:00 Source: patient Mode of arrival: ambulatory Limitations: no limitations History of Present Illness HPI narrative: Patient presents to the emergency department for evaluation of elevated blood pressure. Patient has a history of very difficult to control hypertension, she was seen on September 25 for hypertensive emergency found to have a possible small inracranial hemorrhage and transferred over to [facility] for evaluation. Patient had stable CT scans at their facility and no neurosurgical intervention was done. Pt then discharged home. Patient states that her blood pressures been running high all day with blood pressures in the 150s to 170s systolic. This evening, patient states she began to feel palpitations in her left ear, left-sided jaw pain, took her blood pressure and it was elevated in the 200s. She denies current chest pain. She denies shortness of breath, but states as if she has to breathe deeply to get a full breath. She denies leg swelling, leg pain. Pt states she feels as if she is outside of her body. She denies history of anxiety. Pt has been following with Dr. Morales for HTN. Patient denies any fevers or chills vision changes numbness or tingling in the extremities nausea vomiting or any other symptoms. Related Data Home Medications Medication Instructions Recorded Confirmed levothyroxine 75 mcg tablet 75 mcg PO DAILY 05/01/19 09/04/19 levetiracetam 1,000 mg tablet 1,000 mg PO Q12H 09/30/19 Allergies Allergy/AdvReac Type Severity Reaction Status Date / Time amlodipine Allergy Mild forgetfulln Verified 09/26/19 23:28 ess atenolol Allergy Unknown Dyspnea / Verified 09/26/19 23:28 SOB iodine Allergy Unknown Other Verified 09/26/19 23:28 Penicillins Allergy Unknown Unknown Verified 09/26/19 23:28 - A CHILD Review of Systems Review of Systems: Narrative: CONSTITUTIONAL: Denies fever, chills, or sweats. EYES: Denies visual changes, redness, or discharge. ENT: Denies rhinorrhea, congestion, sore throat, or otalgia. CARDIOVASCULAR: Denies chest pain, reports palpitations RESPIRATORY: Denies cough, Denies dyspnea GASTROINTESTINAL: Denies abdominal pain, nausea, vomiting, or diarrhea. GENITOURINARY: Denies dysuria or hematuria. SKIN: Denies rash or itching. MUSCULOSKELETAL: Denies back pain, joint pain, or myalgia. NEUROLOGIC: Denies headache, numbness, or weakness. [facility] Past Medical History Medical History (Updated 10/02/19 @ 03:22 by Suzie Mei MD) 1st degree AV block Cholelithiases Chronic cholecystitis with calculus BRADLEY (dyspnea on exertion) Dyslipidemia Ectopic atrial rhythm Essential hypertension GERD (gastroesophageal reflux disease) History of torn meniscus of right knee Hypersomnia Intracranial hemorrhage Obstructive sleep apnea PAT (paroxysmal atrial tachycardia) Surgical History Surgical History H/O eye surgery H/O: hysterectomy Hx of tonsillectomy S/P removal of thyroid nodule Family History Family History Father Family history of malignant neoplasm Grandparent Family history of Parkinson's disease Social History Social History Smoking status: Never smoker Second hand tobacco smoke exposure: Yes (dad smoked at home) Alcohol intake: never Substance use: never Substance use type: does not use Gender identity (if verbalized by the patient): Female Spiritual care concerns: No Agree to blood products: Yes Exam Narrative: Exam Narrative: GENERAL: Awake, alert, conversant HEAD: Normocephalic, atraumatic. EYES: PERRLA and EOMI. ENT: Nares clear, no rhinorrhea or epistaxis. Mucous membranes moist. NECK: Supple. CHEST: No respiratory dist
[2019-10-02 01:36] LABS: Basophils Absolute Auto 0.1 K/mm3 (0.0-0.1); Basophils Percent Auto 0.6 % (0.2-1.2); Eosinophils Absolute Auto 0.4 K/mm3 (0-0.3); Eosinophils Percent Auto 4.8 % (0-4.4); Hematocrit 38.5 % (37.0-47.0); Hemoglobin 12.9 g/dL (12.0-15.0); Immature Granulocyte Absolute 0.02 K/mm3 (0.00-0.031); Immature Granulocyte Percent A 0.3 % (0-0.5); Lymphocytes Absolute Auto 1.36 K/mm3 (0.9-3.2); Lymphocytes Percent Auto 17.6 % (18.3-44.2); Mean Corpuscular HGB Conc 33.5 g/dl (32-36); Mean Corpuscular Hemoglobin 29.5 pg (26-34); Mean Corpuscular Volume 87.9 fl (80-100); Mean Platelet Volume 9.1 fl (7.4-10.4); Monocytes Absolute Auto 0.7 K/mm3 (0.1-0.6); Monocytes Percent Auto 8.4 % (2.6-8.5); Neutrophils Absolute Auto 5.3 K/mm3 (1.3-6.7); Neutrophils Percent Auto 68.3 % (45.5-73.1); Platelet Count Result 327 k/mm3 (150-375); Red Blood Count 4.38 M/mm3 (4.2-5.4); Red Cell Distribution Width 13.4 % (11.5-14.5); White Blood Count 7.7 K/mm3 (4.5-10.0)
--- NOTE | 2019-10-02 01:39 | ECG_ITS ---
Measurements Intervals [place] Rate: 74 P: 50 ID: 199 QRS: 9 QRSD: 113 T: 48 QT: 370 QTc: 411 Interpretive Statements SINUS RHYTHM WITH MARKED SINUS ARRHYTHMIA POSSIBLE LEFT ATRIAL ENLARGEMENT INTRAVENTRICULAR CONDUCTION DELAY ANTEROSEPTAL INFARCT, AGE INDETERMINATE ABNORMAL ECG Electronically Signed On 10-02-2019 7:22:32 CDT by Anton Morales D.O.
[2019-10-02] MEDS: hydrALAZINE HCL 20 MG/ML VIAL IV PUSH (01:45)
[2019-10-02 01:47] LABS: Prothrombin Time 12.9 Seconds (11.1-14.7)
[2019-10-02 01:48] LABS: Partial Thromboplastin Time 27.8 SECONDS (22.3-36.8)
[2019-10-02 02:00] LABS: Blood Urea Nitrogen 17 mg/dL (7-17); Calcium 8.8 mg/dL (8.4-10.2); Carbon Dioxide 21 mmol/L (22-30); Chloride 105 mmol/L (98-107); Estimated CRCL calculation 59 ml/min; Estimated Glomerular Filt Rate > 60; Glucose 117 mg/dL (65-105); Potassium 4.1 mmol/L (3.4-5.0); Sodium 135 mmol/L (137-145)
[2019-10-02 02:12] LABS: Troponin I < 0.012 ng/mL (0.000-0.034)
--- NOTE | 2019-10-02 03:37 | PC.NURSE ---
Patient report faxed to 3 med-surg.
--- NOTE | 2019-10-02 04:10 | ADMGEN ---
This patient, Ashley Sebastian, was admitted to [address] [facility] Surg Room 316-01. Patient/family oriented to hospital policies and general routines including ID bracelet, bed and alarms, visiting hours, pain management, procedures, bathroom and other care routines, personal items, smoking policy, room service/diet, and visiting hours. Valuables list has been completed. Information on how to activate the Rapid Response Team has been discussed. Patient/Family are encouraged to report perceived risks to care and to ask questions if they do not understand what they are told or what they should do.
[2019-10-02 05:31] LABS: Troponin I < 0.012 ng/mL (0.000-0.034)
--- NOTE | 2019-10-02 05:55 | PM.IMHP ---
H&P: HPI History of Present Illness Chief complaint: Hypertensive Urgency Narrative: This is a pleasant 69 year old female with known poorly controlled HTN, hypothyroidism, GERD, and recent intracranial hemorrhage who presented to the hospital [facility] with a complaint of elevated blood pressure. She is known to see Dr. Morales who has been adjusting her blood pressure medications and recently lowered her Losartan to 50 mg PO BID instead of 100 mg qhs and has eliminated her HCTZ as he believed this was drying her out. He also changed her hydralazine from 50 mg TID to 50 mg BID. She describes that she will take her morning antihypertensive medications and for a few small amount of time her blood pressure will drop down to 80s/40s mm Hg and then for the rest of the day her blood pressure will be more elevated. Yesterday she started to feel bad in the afternoon with a sensation of anxiety, palpitations, and felt like she was outside of her body . She checked her blood pressure several times and found that her systolic BP was in the 180s - 190s mm Hg. She finally decided to come to the hospital as she was very worried. The patient recently was ween on September 25 in our ER and found to have a possible small subarachnoid hemorrhage and transferred to [facility]. She was evaluated and told that it should heal without incident. Tonight she had a repeat CT brain which was unremarkable for any acute pathology. Tonight in the ER the patient was found to have elevated blood pressure of 203/99 mm Hg. She was treated w/ 20 mg of IV hydralazine [facility] which has lowered her blood pressure down to 130s/60s mm Hg. On my encounter with her she has no other complaints other than feeling anxious. She denies any workup for secondary hypertension. Review of Systems Review of Systems: All systems reviewed & are unremarkable except as noted in HPI and below PMFSH Past Medical History Medical History 1st degree AV block Cholelithiases Chronic cholecystitis with calculus BRADLEY (dyspnea on exertion) Dyslipidemia Ectopic atrial rhythm Essential hypertension GERD (gastroesophageal reflux disease) History of torn meniscus of right knee Hypersomnia Intracranial hemorrhage Obstructive sleep apnea PAT (paroxysmal atrial tachycardia) Surgical History Surgical History H/O eye surgery H/O: hysterectomy Hx of tonsillectomy S/P removal of thyroid nodule Family History Family History Father Family history of malignant neoplasm Grandparent Family history of Parkinson's disease Social History Social History Smoking status: Never smoker Second hand tobacco smoke exposure: Yes Alcohol intake: never Substance use: never Substance use type: does not use Gender identity (if verbalized by the patient): Female Spiritual care concerns: No Agree to blood products: Yes Meds Home Medications and Allergies Home Medications Medication Instructions Recorded Confirmed Type levothyroxine 75 mcg tablet 75 mcg PO DAILY 05/01/19 10/02/19 History losartan 50 mg tablet 50 mg PO BID #60 tablet 09/18/19 10/02/19 Rx hydralazine 50 mg tablet 50 mg PO BID #60 tablet 09/30/19 10/02/19 Rx carvedilol [Coreg] 6.25 mg PO BID 10/02/19 10/02/19 History Allergies Allergy/AdvReac Type Severity Reaction Status Date / Time atenolol Allergy Intermediate Dyspnea / Verified 10/02/19 04:27 SOB iodine Allergy Intermediate Itching Verified 10/02/19 04:27 Penicillins Allergy Unknown Unknown Verified 10/02/19 04:27 - A CHILD amlodipine AdvReac Mild forgetfulln Verified 10/02/19 04:27 ess fennel Allergy Severe Wheezing Uncoded 10/02/19 04:27 Vital Signs Vital Signs - 24 hr 10/02/19 01:04 10/02/19 01:07 10/02/19 01:17 Temperature 36.9 C
[2019-10-02 07:19] LABS: Add Urine Microscopic? YES; Appearance Urine Clear (Clear); Bilirubin Urine Negative (Negative); Blood Urine Negative (Negative); Color Urine Straw (Yellow); Glucose Urine UA Negative (Negative); Ketones Urine Trace mg/dL (Negative); Leukocyte Esterase Ur Negative LEU/UL (NEGATIVE); Nitrate Urine Negative (Negative); Protein Urine Negative (Negative); RBC Urine 0-2 /hpf (0-2); Specific Grav Ur 1.009 (1.001-1.035); Squamous Epithelial Cell Urine Rare /hpf (Few); Urobilinogen Urine Negative mg/dL (<2.0); WBC Urine 0-3 /hpf (0-3)
--- NOTE | 2019-10-02 08:34 | PM.CNCAR ---
Assessment and Plan Assessment and plan (1) Obstructive sleep apnea: Code(s): G47.33 - Obstructive sleep apnea (adult) (pediatric) Status: Chronic (2) Hypertensive urgency: Code(s): I16.0 - Hypertensive urgency Status: Acute Assessment and Plan: Stable this morning. Increase Coreg 12.5 mg BID. Continue Hydralazine 25 mg TID and Losartan 50 mg BID. Monitor BP throughout today and if OK by evening may be discharged home, otherwise will keep her overnight. (3) PAT (paroxysmal atrial tachycardia): Code(s): I47.1 - Supraventricular tachycardia Status: Acute Assessment and Plan: Stable. History of Present Illness History of Present Illness Consult date/time: 10/02/19 08:34 Reason for consult: Hypertensive urgency. 69 yr old woman who is my regular cardiology patient who has a history of labile hypertension which could be anxiety induced (did not tolerate Atenolol due to nausea or Amlodipine due to forgetfulness per patient), BLAKE not on treatment, ectopic atrial rhythm and PAT. Presents to hospital due to having high BP persistently at home yesterday over 200 systolic. She stated she felt strange with it and sometimes shortness of breath with them. Denies chest pain, orthopnea, edema, headaches, dizziness. Recently she was here for the same and CT brain showed subarachnoid hemorrage and she was transferred to [facility] and she saw a neurosurgeon who stated it was stable and she was discharged home to control her BP. Reports her palpitations seem to be doing better and no longer feeling them. She can walk 1-2 blocks and limited by knee pains and possibly BRADLEY. Denies chest pain or edema. Her BP tends to go low into 80's systolic after she takes her medication but then by afternoon it is high into 170's systolic. Reason For Visit: Hypertensive Urgency Review of Systems Review of Systems: All systems reviewed & are unremarkable except as noted in HPI and below Constitutional: Constitutional: Reports as per HPI Cardiovascular: Cardiovascular: Reports as per HPI, Denies chest pain and Denies leg edema Respiratory: Respiratory: Reports as per HPI and Reports dyspnea Gastrointestinal: Gastrointestinal: Reports as per HPI and Denies abdominal pain Genitourinary: Genitourinary: Reports as per HPI and Denies urinary frequency Neurologic: Reports as per HPI and Denies headache(s) [facility]LY [facility] Past Medical History Medical History 1st degree AV block Cholelithiases Chronic cholecystitis with calculus BRADLEY (dyspnea on exertion) Dyslipidemia Ectopic atrial rhythm Essential hypertension GERD (gastroesophageal reflux disease) History of torn meniscus of right knee Hypersomnia Intracranial hemorrhage Obstructive sleep apnea PAT (paroxysmal atrial tachycardia) Surgical History Surgical History H/O eye surgery H/O: hysterectomy Hx of tonsillectomy S/P removal of thyroid nodule Family History Family History Father Family history of malignant neoplasm Grandparent Family history of Parkinson's disease Social History Social History Smoking status: Never smoker Second hand tobacco smoke exposure: Yes Alcohol intake: never Substance use: never Substance use type: does not use Gender identity (if verbalized by the patient): Female Spiritual care concerns: No Agree to blood products: Yes Meds Home Medications and Allergies Home Medications Medication Instructions Recorded Confirmed Type levothyroxine 75 mcg tablet 75 mcg PO DAILY 05/01/19 10/02/19 History losartan 50 mg tablet 50 mg PO BID #60 tablet 09/18/19 10/02/19 Rx hydralazine 50 mg tablet 50 mg PO BID #60 tablet 09/30/19 10/02/19 Rx carvedilol [Coreg] 6.25 mg PO BID 10/02/19 10/02/19 History Allergie
[2019-10-02] MEDS: carvediloL 12.5 MG TABLET PO ×2 (10:27→22:13)
[2019-10-02] MEDS: hydrALAZINE HCL 25 MG TABLET PO ×2 (10:28→17:48)
[2019-10-02] MEDS: LOSARTAN POTASSIUM 50 MG TABLET PO ×2 (10:28→22:14)
--- NOTE | 2019-10-02 12:16 | PM.IMPN ---
Progress Note: A&P Assessment and Plan (1) Uncontrolled hypertension: Code(s): I10 - Essential (primary) hypertension Status: Chronic Assessment and Plan: The patient has been admitted for poorly controlled HTN. She states she has never been worked up for secondary hypertension. She does not appear to have chronic renal disease and her potassium has been normal on previous visits so she likely does not have primary aldosteronism. Her TSH is wnl. She is known to have sleep apnea which may be the contributing factor to her HTN. She will need more regular office visits until her blood pressure is well controlled. She did have BP lower in right arm than left which will need to be monitored. Renal duplex doppler US today. Await results Dr. Morales is following and recommendations are appreciated. Continue hydralazine and losartan Continue to monitor blood pressure in bilateral arms. (2) Hypothyroidism: Code(s): E03.9 - Hypothyroidism, unspecified Status: Chronic Assessment and Plan: TSH was recently checked and within normal limits. 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 This was present on previous chest X-rays and appears unchanged. She has previously undergone removal of thyroid nodule. Continue Levothyroxine PO. Monitor left mediastinal mass as an outpatient. (3) Obstructive sleep apnea: Code(s): G47.33 - Obstructive sleep apnea (adult) (pediatric) Status: Chronic Assessment and Plan: BLAKE may be contributing to uncontrolled HTN. Patient reports she has not had a sleep study and does not use a CPAP machine. Order apnea link She will benefit from a formal outpatient sleep study. (4) PAT (paroxysmal atrial tachycardia): Code(s): I47.1 - Supraventricular tachycardia Status: Acute Assessment and Plan: Stable. HR normal. EKG showing sinus rhythm. Continue telemetry Continue to monitor Subjective Date/time seen: 10/02/19 12:16 Interval history: Date/Time seen: 10/02/19 at 1200 MsBenny Sebastian is seen today and reports she is still not feeling her usual self. She felt that her blood pressure was low. She was getting vitals taken during my visit and her BP in left arm was 119/95 and repeated in right arm was 98/42. She was not feeling dizzy or lightheaded but noted some visual changes stating that when she closed her eyes, she was seeing some bright green spots. She denied diplopia, tunnel vision, or blurred vision. She did not have tinnitus. No numbness or tingling. She was not diaphoretic. She reported her mouth was dry and her jaw felt funny, but denied jaw pain. She denied palpitations, shortness of breath, or chest pain. She initially denied headache and then later in the visit described band like tightness across her head. She reports it is a common occurrence that her blood pressure will be high and then she feels the energy being sucked out of her and then her blood pressure becomes low. She had previously been ambulating around the room without difficulty but said if she were to get up she would be unsteady. She denies feeling anxious, nervous, down, depressed or hopeless. She denies abdominal pain, N/V/D, myalgia, arthralgia, cough, congestion, sore throat, dysuria, hematuria, bleeding or bruising. Her appetite has been adequate and she is sleeping well. Review of Systems Review of Systems: Narrative: A 12 point review of systems was reviewed with pertinent positives and negatives as per HPI. Exam Narrative: Exam Narrative: Ms. Sebastian is examined alone today. She is a well nourished 69 year old female lying supine in bed. She appears comfortable and is in NARD. HR 63. BP 98/42. RR 18. T 98.3F. Neuro: awake, alert and oriented x3, speech clear, no focal neuro deficits noted HEENMT: normocephalic, atraumatic, EOMI, sclerae anicteric, moist oral mucosa, normal o
[2019-10-03] VITALS (9 sets, daily range): BP systolic 110–150; BP diastolic 48–78; PULSE 49–84; RESP 16–18; TEMP 36.7–36.8; O2SAT 97–100
[2019-10-03 05:57] LABS: Alanine Aminotransferase 11 U/L (4-35); Albumin Level 3.2 g/dL (3.5-5.1); Alkaline Phosphatase 47 U/L (38-126); Aspartate Amino Transferase 17 U/L (14-36); Bilirubin,Total 1.1 mg/dL (0.2-1.3); Blood Urea Nitrogen 17 mg/dL (7-17); Calcium 8.3 mg/dL (8.4-10.2); Carbon Dioxide 29 mmol/L (22-30); Chloride 104 mmol/L (98-107); Estimated CRCL calculation 53 ml/min; Estimated Glomerular Filt Rate > 60; Glucose 89 mg/dL (65-105); Potassium 4.2 mmol/L (3.4-5.0); Sodium 137 mmol/L (137-145)
[2019-10-03] MEDS: LEVOTHYROXINE SODIUM 75 MCG TABLET PO (06:11)
--- NOTE | 2019-10-03 08:05 | PM.PNCARD ---
Progress Note: A&P Assessment and Plan (1) Obstructive sleep apnea: Code(s): G47.33 - Obstructive sleep apnea (adult) (pediatric) Status: Chronic (2) Hypertensive urgency: Code(s): I16.0 - Hypertensive urgency Status: Acute Assessment and Plan: BP stable. Continue Coreg 12.5 mg BID, Losartan 50 mg BID and Hydralazine 25 mg BID. Advise when she checks BP at home and it is >150 mmHg, she may take an additional Hydralazine 25 mg dose. May d/c home from cardiology standpoint. F/U with me in 2 weeks. (3) PAT (paroxysmal atrial tachycardia): Code(s): I47.1 - Supraventricular tachycardia Status: Acute Subjective Date/time seen: 10/03/19 08:05 Denies chest pain or sob. Exam Const: General: comfortable and no acute distress Neck: Neck: no JVD Carotids: no bruits Resp: Auscultation: clear to auscultation bilaterally, no crackles, no rales, no rhonchi and no wheezes Cardio: Rate: regular rate Rhythm: regular rhythm Heart sounds: no murmurs GI: Inspection: non-distended Neuro: Speech: normal speech Extrem: Right lower extremity: no edema Left lower extremity: no edema Objective Data Vital Signs Vital Signs: Vital Signs - 24 hr 10/02/19 10:24 10/02/19 10:27 10/02/19 10:30 Temperature Pulse Rate 85 85 64 Respiratory Rate 18 Blood Pressure 138/74 Pulse Oximetry 96 10/02/19 12:00 10/02/19 12:16 10/02/19 15:30 Temperature 98.9 F 98.6 F Pulse Rate 56 L 61 51 L Respiratory Rate 16 16 Blood Pressure 119/95 H 108/52 L Pulse Oximetry 97 97 10/02/19 16:00 10/02/19 17:35 10/02/19 20:00 Temperature 99.0 F Pulse Rate 54 L 54 L 64 Respiratory Rate 16 Blood Pressure 131/64 Pulse Oximetry 96 10/02/19 22:00 10/02/19 22:13 10/03/19 00:00 Temperature 97.9 F Pulse Rate 58 L 60 56 L Respiratory Rate 18 Blood Pressure 146/68 H Pulse Oximetry 97 10/03/19 02:05 10/03/19 02:08 10/03/19 04:00 Temperature 98.2 F Pulse Rate 54 L 84 49 L Respiratory Rate 18 16 Blood Pressure 110/48 L Pulse Oximetry 99 97 10/03/19 06:00 Temperature 98.1 F Pulse Rate 52 L Respiratory Rate 16 Blood Pressure 150/74 H Pulse Oximetry 99 Intake/Output Intake/Output: Intake & Output 09/30/19 10/01/19 10/02/19 10/03/19 23:59 23:59 23:59 23:59 Intake Total 1580 200 Output Total 350 Balance 1580 -150 Meds/Results Medications: Active Medications Generic Name Dose Route Start Last Admin Trade Name Freq PRN Reason Stop Dose Admin Carvedilol 12.5 mg 10/02/19 09:00 10/02/19 22:13 Coreg PO 12.5 mg Q12HR JAYE Administration Hydralazine HCl 25 mg 10/02/19 17:00 10/02/19 17:48 Apresoline Tablet PO 25 mg BID JAYE Administration Levothyroxine Sodium 75 mcg 10/02/19 06:35 10/03/19 06:11 Synthroid PO 75 mcg DAILY@0630 JAYE Administration Losartan Potassium 50 mg 10/02/19 09:00 10/02/19 22:14 Cozaar PO 50 mg Q12HR JAYE Administration Nitroglycerin 0.4 mg 10/02/19 03:16 Nitrostat Subl 0.4 Mg (1/150) SUBLINGUAL Q5MIN PRN Chest Pain Radiology Results: ITS Impressions Head CT 10/02/19 06:34 IMPRESSION: 1. Unchanged hyperdense masses in the left insula previously reported as acute subarachnoid hemorrhage. These findings may be dystrophic calcifications, neoplasms, or less likely small hematomas. Brain MRI without and with contrast is recommended. Chest X-Ray 10/02/19 07:27 IMPRESSION: 1. Mild atelectasis in left lower lung zone. 2. Mass in left superior mediastinum with rightward shift of the trachea, likely a goiter. Arterial/Peripheral Duplex 10/02/19 09:37 IMPRESSION: 1. No Doppler evidence of renal artery stenosis. Labs Labs: Laboratory Results - last 24 hr 10/03/19 05:13 Sodium 137 Potassium 4.2 Chloride 104 Carbon Dioxide 29 BUN 17 Creatinine 0.80 Estim Creat Clear Calc 53 Estimated GFR > 60 Glucose 89 Calci
[2019-10-03] MEDS: LOSARTAN POTASSIUM 50 MG TABLET PO (10:35)
[2019-10-03] MEDS: carvediloL 12.5 MG TABLET PO (10:35)
--- NOTE | 2019-10-03 16:31 | PM.DS ---
DS: Diagnosis Admitting Diagnosis Admitting Diagnosis: Essential (primary) hypertension Discharge Diagnosis (1) Uncontrolled hypertension: Code(s): I10 - Essential (primary) hypertension Status: Chronic (2) Hypothyroidism: Code(s): E03.9 - Hypothyroidism, unspecified Status: Chronic (3) Obstructive sleep apnea: Code(s): G47.33 - Obstructive sleep apnea (adult) (pediatric) Status: Chronic (4) PAT (paroxysmal atrial tachycardia): Code(s): I47.1 - Supraventricular tachycardia Status: Acute DS: Summary Hospital Course Reason for hospitalization: Date of admission: 10/02/19 Date of discharge: 10/03/19 Ashley Sebastian is a 69 yo F with a PMH significant for poorly controlled HTN, hypothyroidism, GERD, and recent intracranial hemorrhage who presented to the ED on 10/02/19 with elevated blood pressure in the 200s systolic along with palipitations and left ear and jaw discomfort. At presentation, BP 203/99, HR 83, WBC 7.7, Creatinine 0.7, Troponin <0.012, EKG with NSR. She was admitted to the hospitalist service on 10/02/19 for hypertensive urgency. She has been seeing printing specialist Dr. Morales for BP control who has recently made some adjustments including reducing Losartan dose, decreasing frequency of Hydralazine, and stopping HCTZ. She underwent renal duplex US which revealed no evidence of renal artery stenosis. She has a documented history of BLAKE but reports she has not undergone formal sleep study evaluation and seemed to be unaware of diagnosis. 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 She would benefit from formal outpatient sleep study as this may be a contributor to her HTN. Her blood pressure fluctuated during her stay and typically was greater in right arm than left, possibly suggesting subclavian stenosis. Dr. Morales adjusted her antihypertensive regimen for her to continue outpatient and she will follow up with him in 2 weeks. She was educated on proper technique for taking blood pressure and instructed to keep a log for Dr. Morales's review. Given some atypical symptoms she experienced, she was started on SSRI for a possible anxiety component causing autonomic symptoms resulting in increased BP. Additionally, CXR revealed left superior mediastinal mass with right tracheal shift, likely due to goiter that was present on previous CXR and unchanged. Recommend monitoring as an outpatient by PCP. Given stabilization of her blood pressure, she was determined to be stable for discharge. She was educated on her medication changes and all questions were answered. After discussing worrisome signs and symptoms for which to return, she was discharged home in hemodynamically stable condition on the afternoon of 10/03/19 with instructions to follow up with her PCP. Status at Discharge Functional status at discharge: independent ambulation Overall status at discharge: patient is progressing back to baseline Time Spent with Patient Time attestation: Total time spent providing and/or coordinating discharge services:44 minutes Time spent: Greater than 30 minutes Exam Narrative: Exam Narrative: Ms. Sebastian is examined alone today. She is a well nourished 69 year old female lying supine in bed. She appears comfortable and is in NARD. HR 52. BP 9150/74. RR 16. T 98.1F. Neuro: awake, alert and oriented x3, speech clear, no focal neuro deficits noted HEENMT: normocephalic, atraumatic, EOMI, sclerae anicteric, moist oral mucosa, normal oropharynx, full ROM of jaw without crepitus, no edema Neck: supple, no lymphadenopathy Respiratory: clear to auscultation bilaterally, normal respiratory effort, 99% on room air Cardio: regular rate, regular rhythm, no murmur noted Abdomen: normal to inspection, nondistended, normoactive bowel sounds, soft, nontender Extremities: BLE without edema, erythema, or pain to palpation, dorsal pedis pulses palpable bilaterally Skin: no rashes or l
== END 2019-10-03 16:35 | disposition home or self-care (01) ==
LOC: ANHED 03:22 → ANH3MEDSUR 07:36
PROVIDERS: Admitting Provider Family Medicine; Emergency Provider Emergency Medicine; PCP Family Medicine; Visit Provider Physician Assistant
DX: I16.0 Hypertensive urgency (principal); I10 Essential (primary) hypertension; E03.9 Hypothyroidism, unspecified; G47.33 Obstructive sleep apnea (adult) (pediatric); I47.1 Supraventricular tachycardia; K21.9 Gastro-esophageal reflux disease without esophagitis; E78.5 Hyperlipidemia, unspecified; Z79.899 Other long term (current) drug therapy
CPT/HCPCS: 36415; 70450; 71046; 80048; 80053; 81001; 84443; 84484; 85025; 85610; 85730; 93005; 93976; 94762; 96374; 99285; A9270; G0378; J0360

== ENCOUNTER 2019-10-29 23:15 | Emergency (ER) | payer MEDICARE, SELFPAY ==
--- NOTE | ~2019-10-29 | XR_ITS ---
EXAMINATION: XR chest 2V DATE: 10/30/2019 00:28 INDICATION: Chest pain. TECHNIQUE: Frontal and lateral views of the chest were obtained. COMPARISON: Chest 2 views 10/02/2019 FINDINGS: There is mild atelectasis in the lower lung zones. No pleural effusion or pneumothorax. The heart size is normal. There are surgical clips in the abdomen. Again seen is a mass in the left supe rior mediastinum with rightward shift of the trachea, likely a goiter. IMPRESSION: 1. Mild atelectasis in the lower lung zones. 2. Unchanged mass in the superior mediastinum, likely a goiter. Reviewed, dictated and finalized at location A.
[2019-10-29 23:22] VITALS: BP 210/78; PULSE 65; RESP 17; TEMP 37; O2SAT 96
--- NOTE | 2019-10-29 23:41 | ECG_ITS ---
Measurements Intervals [place] Rate: 54 P: 60 AR: 195 QRS: 39 QRSD: 109 T: 45 QT: 434 QTc: 411 Interpretive Statements JUNCTIONAL RHYTHM CHANGES TO SINUS RHYTHM WITH SINUS ARRHYTHMIA POSSIBLE LEFT ATRIAL ENLARGEMENT ANTEROSEPTAL INFARCT, AGE INDETERMINATE ABNORMAL ECG Electronically Signed On 10-30-2019 7:11:56 CDT by Anton Morales D.O.
[2019-10-30] VITALS (7 sets, daily range): BP systolic 110–183; BP diastolic 60–78; PULSE 43–48; RESP 14–18; TEMP 36.6; O2SAT 94–96
[2019-10-30 01:02] LABS: Basophils Percent Auto 0.3 % (0.2-1.2); Eosinophils Absolute Auto 0.4 K/mm3 (0-0.3); Eosinophils Percent Auto 4.8 % (0-4.4); Hematocrit 36.6 % (37.0-47.0); Hemoglobin 12.4 g/dL (12.0-15.0); Immature Granulocyte Absolute 0.02 K/mm3 (0.00-0.031); Immature Granulocyte Percent A 0.3 % (0-0.5); Lymphocytes Percent Auto 17.7 % (18.3-44.2); Mean Corpuscular HGB Conc 33.9 g/dl (32-36); Mean Corpuscular Volume 88.4 fl (80-100); Mean Platelet Volume 9.9 fl (7.4-10.4); Monocytes Absolute Auto 0.6 K/mm3 (0.1-0.6); Monocytes Percent Auto 7.6 % (2.6-8.5); Neutrophils Absolute Auto 5.5 K/mm3 (1.3-6.7); Neutrophils Percent Auto 69.3 % (45.5-73.1); Platelet Count Result 267 k/mm3 (150-375); Red Blood Count 4.14 M/mm3 (4.2-5.4); Red Cell Distribution Width 14.2 % (11.5-14.5); White Blood Count 7.9 K/mm3 (4.5-10.0)
[2019-10-30 01:18] LABS: Blood Urea Nitrogen 10 mg/dL (7-17); Calcium 8.8 mg/dL (8.4-10.2); Carbon Dioxide 26 mmol/L (22-30); Chloride 104 mmol/L (98-107); Estimated CRCL calculation 59 ml/min; Estimated Glomerular Filt Rate > 60; Glucose 115 mg/dL (65-105); Potassium 3.6 mmol/L (3.4-5.0); Sodium 135 mmol/L (137-145)
[2019-10-30 01:21] LABS: INR 1.1; Partial Thromboplastin Time 28.2 SECONDS (22.3-36.8); Prothrombin Time 13.9 Seconds (11.1-14.7)
[2019-10-30 01:30] LABS: Troponin I 0.013 ng/mL (0.000-0.034)
--- NOTE | 2019-10-30 02:00 | ED.RECABL ---
HPI - Recheck/Abnormal Lab/Rx General Chief Complaint: Recheck/Abnormal Lab/Rx Stated Complaint: High B/P Time Seen by Provider: 10/30/19 01:44 History of Present Illness HPI narrative: Patient presents for alterations in her blood pressure. She takes her blood pressure many times in the day. And it alternates from normal to pretty high. She has a record with her. She has no symptoms when her blood pressure is high. She just worries about. She is allowed to take an extra hydralazine when his heart. Otherwise she takes her 3 blood pressure medicines twice daily. Because is normally okay they have not added or increased her regular meds. She denies any excessive stress, and cannot identify any triggers to the higher blood pressure. She does not smoke drink or do drugs. She is retired She has not been sick in the last week or 2. She has no pain. Related Data Home Medications Medication Instructions Recorded Confirmed sertraline 25 mg tablet 12.5 mg PO DAILY tablet 10/17/19 10/17/19 Allergies Allergy/AdvReac Type Severity Reaction Status Date / Time anise oil Allergy Severe Wheezing Verified 10/29/19 23:17 atenolol Allergy Intermediate Dyspnea / Verified 10/29/19 23:17 SOB iodine Allergy Intermediate Itching Verified 10/29/19 23:17 Penicillins Allergy Unknown Unknown Verified 10/29/19 23:17 - A CHILD amlodipine AdvReac Mild forgetfulln Verified 10/29/19 23:17 ess fennel Allergy Severe Difficulty Uncoded 10/29/19 23:17 Breathing Review of Systems Review of Systems: Narrative: CONSTITUTIONAL: Denies fever, chills, or sweats. EYES: Denies visual changes, redness, or discharge. ENT: Denies rhinorrhea, congestion, sore throat, or otalgia. CARDIOVASCULAR: Denies chest pain, palpitations, or edema. RESPIRATORY: Denies cough or dyspnea. GASTROINTESTINAL: Denies abdominal pain, nausea, vomiting, or diarrhea. GENITOURINARY: Denies dysuria or hematuria. SKIN: Denies rash or itching. MUSCULOSKELETAL: Denies back pain, joint pain, or myalgia. NEUROLOGIC: Denies headache, numbness, or weakness. PSYCHIATRIC: Denies anxiety or depression. [facility] Past Medical History Medical History 1st degree AV block Cholelithiases Chronic cholecystitis with calculus BRADLEY (dyspnea on exertion) Dyslipidemia Ectopic atrial rhythm Essential hypertension GERD (gastroesophageal reflux disease) History of torn meniscus of right knee Hypersomnia Intracranial hemorrhage Obstructive sleep apnea PAT (paroxysmal atrial tachycardia) Surgical History Surgical History H/O eye surgery H/O: hysterectomy Hx of tonsillectomy S/P removal of thyroid nodule Social History Social History Smoking status: Never smoker Second hand tobacco smoke exposure: Yes Alcohol intake: never Substance use: never Substance use type: does not use Gender identity (if verbalized by the patient): Female Spiritual care concerns: No Agree to blood products: Yes Exam Narrative: Exam Narrative: GENERAL: Well-appearing, well-nourished, and in no acute distress. HEAD: Normocephalic, atraumatic. EYES: PERRLA and EOMI. ENT: Nares clear, no rhinorrhea or epistaxis. Mucous membranes moist. NECK: Supple. CHEST: Clear to auscultation. No respiratory distress. HEART: Regular rate and rhythm. No murmur heard. Normal peripheral pulses. ABDOMEN: Soft, nontender, nondistended, normal active bowel sounds. EXTREMITIES: Normal range of motion. No edema. SKIN: Warm, dry, no rash. NEURO: No focal deficits. Alert and oriented x3. PSYCH: Normal mood and affect. Course Reevaluation(s) Reevaluation #1: Patient had bradycardia high 30s and 40s. She has no symptoms. She says that her heart rate frequently is in the 40s and 50s. Repeated the EKG. she got her Xanax and her heart rate is still 194.
[2019-10-30] MEDS: ALPRAZOLAM 0.5 MG TABLET PO (02:34)
--- NOTE | 2019-10-30 03:19 | ECG_ITS ---
Measurements Intervals [place] Rate: 42 P: 51 CA: 200 QRS: 13 QRSD: 116 T: 31 QT: 515 QTc: 434 Interpretive Statements SINUS BRADYCARDIA POSSIBLE LEFT ATRIAL ENLARGEMENT ANTEROSEPTAL INFARCT, AGE INDETERMINATE ABNORMAL ECG Electronically Signed On 10-30-2019 7:15:52 CDT by Anton Morales D.O.
--- NOTE | 2019-10-30 03:29 | PC.NURSE ---
Patient's heart rate began to show 38 on monitor, upon arriving to patient's room, heart rate resumed to run 40-49 bpm. Patient states this is normal for her heart rate. OK Greer was in room at this time and requested repeat EKG. Repeat EKG was completed and EKG read POSSIBLE ANTERIOR [place]. ED Greer requested repeat EKG to be done so EKG reading would not say POSSIBLE ANTERIOR [place]. Patient's heart rate resuming to run 40-49 at this time. Patient is alert and oriented and in no distress.
[2019-10-30 03:38] LABS: Troponin I 0.017 ng/mL (0.000-0.034)
== END 2019-10-30 05:21 | disposition home or self-care (01) ==
PROVIDERS: Emergency Provider Emergency Medicine; PCP Family Medicine
DX: I10 Essential (primary) hypertension (principal); R00.1 Bradycardia, unspecified; F41.9 Anxiety disorder, unspecified; R94.31 Abnormal electrocardiogram [ECG] [EKG]; I44.0 Atrioventricular block, first degree; E78.5 Hyperlipidemia, unspecified; K21.9 Gastro-esophageal reflux disease without esophagitis; G47.33 Obstructive sleep apnea (adult) (pediatric)
CPT/HCPCS: 36415; 71046; 80048; 84484; 85025; 85610; 85730; 93005; 99284; A9270

== ENCOUNTER 2019-12-14 19:55 | Emergency (ER) | payer MEDICARE, SELFPAY ==
[2019-12-14 20:02] VITALS: BP 206/73; PULSE 69; RESP 18; TEMP 37.7; O2SAT 95
--- NOTE | 2019-12-14 20:28 | ED.GENADULT ---
HPI - General Adult General Chief complaint: Abdominal Pain Stated complaint: high blood pressure Time Seen by Provider: 12/14/19 20:03 Source: patient Mode of arrival: ambulatory Limitations: no limitations History of Present Illness HPI narrative: Patient is a 69-year-old female who presents to emergency department for evaluation of elevated blood pressure reading patient is managed by her plush finisher and primary care for blood pressure and notes she has been getting systolics of 200. Patient denies any recent illness notes that she has been having epigastric abdominal discomfort for months. Patient has been compliant with her medications and denies any new medications. Patient on arrival resting comfortably in the room denying any Related Data Allergies Allergy/AdvReac Type Severity Reaction Status Date / Time anise oil Allergy Severe Wheezing Verified 10/29/19 23:17 atenolol Allergy Intermediate Dyspnea / Verified 10/29/19 23:17 SOB iodine Allergy Intermediate Itching Verified 10/29/19 23:17 Penicillins Allergy Unknown Unknown Verified 10/29/19 23:17 - A CHILD amlodipine AdvReac Mild forgetfulln Verified 10/29/19 23:17 ess fennel Allergy Severe Difficulty Uncoded 10/29/19 23:17 Breathing Review of Systems Review of Systems: All systems reviewed & are unremarkable except as noted in HPI and below PMFSH Past Medical History Medical History 1st degree AV block Cholelithiases Chronic cholecystitis with calculus BRADLEY (dyspnea on exertion) Dyshidrotic eczema (~1996) Dyslipidemia Ectopic atrial rhythm Essential hypertension (~03/1997) GERD (gastroesophageal reflux disease) History of torn meniscus of right knee Hypersomnia Intracranial hemorrhage Obstructive sleep apnea PAT (paroxysmal atrial tachycardia) Surgical History Surgical History H/O eye surgery H/O: hysterectomy Hx of tonsillectomy S/P removal of thyroid nodule Social History Social History Smoking status: Never smoker Second hand tobacco smoke exposure: Yes Alcohol intake: never Substance use: never Substance use type: does not use Gender identity (if verbalized by the patient): Female Spiritual care concerns: No Agree to blood products: Yes Exam Narrative: Exam Narrative: GENERAL: Well-appearing, well-nourished, and in no acute distress. HEAD: Normocephalic, atraumatic. EYES: PERRLA and EOMI. ENT: Nares clear, no rhinorrhea or epistaxis. Mucous membranes moist. NECK: Supple. No adenopathy or masses. CHEST: Clear to auscultation. No respiratory distress. No wheezes rales or rhonchi HEART: Regular rate and rhythm. No murmur heard. Normal peripheral pulses. ABDOMEN: Soft, epigastric tenderness to palpation, nondistended EXTREMITIES: Normal range of motion. No edema. SKIN: Warm, dry, no rash. NEURO: No focal deficits. Alert and oriented x3. PSYCH: Normal mood and affect. Course Course Emergency Course: Patient in the room at this time aware of case findings treatment plan and diagnosis agreeing to follow-up as directed or to return if symptoms worsen or concerns Vital Signs Vital signs: Vital Signs Temperature 99.8 F H 12/14/19 20:02 Pulse Rate 69 12/14/19 20:02 Respiratory Rate 18 12/14/19 20:02 Blood Pressure 206/73 H 12/14/19 20:02 Pulse Oximetry 95 12/14/19 20:02 Temperature 99.8 F H 12/14/19 20:02 Pulse Rate 69 12/14/19 20:02 Respiratory Rate 18 12/14/19 20:02 Blood Pressure 206/73 H 12/14/19 20:02 Pulse Oximetry 95 12/14/19 20:02 Medical Decision Making MDM Narrative Medical decision making narrative: Patients EKGs and labs are without significant high risk changes. Cardiac risk factors were reviewd. No other signs or symptoms to suggest apatient in the room in no distress aware of case find
--- NOTE | 2019-12-14 20:30 | ECG_ITS ---
Measurements Intervals [place] Rate: 55 P: DC: 0 QRS: 29 QRSD: 126 T: 43 QT: 445 QTc: 429 Interpretive Statements JUNCTIONAL RHYTHM INTRAVENTRICULAR CONDUCTION DELAY CANNOT RULE OUT SEPTAL INFARCT, AGE INDETERMINATE ABNORMAL ECG Electronically Signed On 12-15-2019 7:05:48 CDT by Anton Morales D.O.
[2019-12-14 20:33] VITALS: BP 141/71; PULSE 56; RESP 15; O2SAT 96
[2019-12-14 20:45] VITALS: BP 175/68; PULSE 51; RESP 14; O2SAT 97
[2019-12-14 20:51] LABS: Basophils Percent Auto 0.6 % (0.2-1.2); Eosinophils Absolute Auto 0.3 K/mm3 (0-0.3); Eosinophils Percent Auto 4.1 % (0-4.4); Hematocrit 37.2 % (37.0-47.0); Hemoglobin 12.5 g/dL (12.0-15.0); Immature Granulocyte Absolute 0.02 K/mm3 (0.00-0.031); Immature Granulocyte Percent A 0.3 % (0-0.5); Lymphocytes Absolute Auto 1.25 K/mm3 (0.9-3.2); Lymphocytes Percent Auto 18.2 % (18.3-44.2); Mean Corpuscular HGB Conc 33.6 g/dl (32-36); Mean Corpuscular Hemoglobin 29.6 pg (26-34); Mean Corpuscular Volume 88.2 fl (80-100); Mean Platelet Volume 10.2 fl (7.4-10.4); Monocytes Absolute Auto 0.6 K/mm3 (0.1-0.6); Monocytes Percent Auto 8.9 % (2.6-8.5); Neutrophils Absolute Auto 4.7 K/mm3 (1.3-6.7); Neutrophils Percent Auto 67.9 % (45.5-73.1); Platelet Count Result 293 k/mm3 (150-375); Red Blood Count 4.22 M/mm3 (4.2-5.4); Red Cell Distribution Width 13.9 % (11.5-14.5); White Blood Count 6.9 K/mm3 (4.5-10.0)
[2019-12-14 21:02] LABS: Alanine Aminotransferase 22 U/L (4-35); Alkaline Phosphatase 58 U/L (38-126); Aspartate Amino Transferase 23 U/L (14-36); Bilirubin,Total 1.6 mg/dL (0.2-1.3); Blood Urea Nitrogen 12 mg/dL (7-17); Calcium 8.7 mg/dL (8.4-10.2); Carbon Dioxide 23 mmol/L (22-30); Chloride 105 mmol/L (98-107); Estimated CRCL calculation 60 ml/min; Estimated Glomerular Filt Rate > 60; Glucose 112 mg/dL (65-105); Lipase 144 U/L (23-300); Potassium 3.7 mmol/L (3.4-5.0); Sodium 135 mmol/L (137-145)
[2019-12-14 21:13] LABS: Troponin I < 0.012 ng/mL (0.000-0.034)
[2019-12-14 21:15] VITALS: BP 164/74; PULSE 47; RESP 12; O2SAT 97
[2019-12-14 22:02] LABS: Add Urine Microscopic? YES; Appearance Urine Clear (Clear); Bilirubin Urine Negative (Negative); Blood Urine Negative (Negative); Color Urine Straw (Yellow); Glucose Urine UA Negative (Negative); Ketones Urine 1+ mg/dL (Negative); Leukocyte Esterase Ur Negative LEU/UL (Negative); Mucus Urine Rare /lpf; Nitrate Urine Negative (Negative); Protein Urine Negative (Negative); RBC Urine 0-2 /hpf (0-2); Squamous Epithelial Cell Urine Rare /hpf (Few); Urobilinogen Urine Negative mg/dL (<2.0); WBC Urine 0-3 /hpf
[2019-12-14 22:49] VITALS: BP 164/74; PULSE 50; RESP 16; O2SAT 97
== END 2019-12-14 22:50 | disposition home or self-care (01) ==
PROVIDERS: Emergency Medicine Emergency Medical Services; Emergency Provider Emergency Medicine; PCP Family Medicine
DX: I10 Essential (primary) hypertension (principal); E78.5 Hyperlipidemia, unspecified; K21.9 Gastro-esophageal reflux disease without esophagitis; G47.33 Obstructive sleep apnea (adult) (pediatric); I45.9 Conduction disorder, unspecified; R94.31 Abnormal electrocardiogram [ECG] [EKG]
CPT/HCPCS: 36415; 80053; 81001; 83690; 84484; 85025; 93005; 99284

== ENCOUNTER 2020-03-12 00:31 | Outpatient (CLI) | payer MEDICARE, SELFPAY ==
[2020-03-12 18:02] LABS: SARS-CoV-2 RNA PCR Negative
== END 2020-03-12 00:32 | disposition home or self-care (01) ==
LOC: ANHCOVIDDT 00:31
PROVIDERS: PCP Family Medicine; Visit Provider Internal Medicine Critical Care Medicine
DX: R09.89 Other specified symptoms and signs involving the circulatory and respiratory systems (principal); Z20.828 Contact with and (suspected) exposure to other viral communicable diseases
CPT/HCPCS: 87635; C9803; U0003

== ENCOUNTER 2020-03-15 07:47 | Outpatient (CLI) | payer MEDICARE, SELFPAY ==
--- NOTE | 2020-03-31 23:34 | WPDSLEEPSTUD ---
Sleep Study Date of Study: 03/15/20 Ordering Provider: Anton Morales DO Interpreting Physician: Niecy Bethea MD Sleep Study Type: CPAP Titration Height: 1.68 m Weight: 72.575 kg Body Mass Index: 25.8 Gates: 3 Reason for Sleep Study A prior home sleep test on 08/06/2019 showing mild obstructive sleep apnea with AHI 10.3, desaturation to 71%. Sleep History This patient is a 68-year-old female, 5 feet 6 inches tall, weighing 160 pounds with a body mass index of 25.8. She does not feel that she has a sleep problem, but her physicians are concerned as she does have a prior history of sleep apnea and is not on treatment, has ectopic atrial rhythm and PAT, hypertension and did not tolerate atenolol due to nausea. Occasionally, she has very poor quality sleep. She says that this is a very temporary situation when it occurs. She denies awakening from short of breath or awakening from sleep with heartburn or belching. She does not know if she snores. Others do not complain about it. She rarely has trouble sleeping with a cold. She denies gasping for breath at night, sweating excessively at night, having palpitations at night, falling asleep during the day, involuntarily, while driving, denies loss of muscle tone with strong emotion, daytime difficulty due to excessive sleepiness. She does not have paralysis when waking or falling asleep, nor does she have vivid dream-like scenes upon awakening or falling asleep. She is not afraid to go to sleep. Denies having nightmares. She rarely remembers her dreams, rarely has racing thoughts, rarely feels sad or depressed and rarely has anxiety. She denies muscular tension, does not notice parts of her body jerking, does not kick at night, does not have crawly achy feelings in the legs and does not have leg pain at night. She denies morning jaw pain since her dentist corrected her temporomandibular joint problems. She does not grind her teeth at night. She occasionally is bothered by pain during the day, but is a never awakened with pain at night. She rarely wakes up feeling stiff in the morning. She denies having sore achy muscles or waking with neck and spine pain. She only has memory problems when she is taking amlodipine. The same for concentration difficulties. Bedtime is 11 p.m., falling asleep within 10 to 15 minutes. She awakens during the night to reposition and roll over. She wakes in the morning between 7 and 8. Weekend schedule is the same. She does not take naps. HABITS: Never smoked tobacco. One cup of coffee or tea daily. Rare alcohol. No recreational drugs. [facility] Past Medical History Medical History 1st degree AV block Cholelithiases Chronic cholecystitis with calculus BRADLEY (dyspnea on exertion) Dyshidrotic eczema (~1996) Dyslipidemia Ectopic atrial rhythm Essential hypertension (~03/1997) Generalized anxiety disorder GERD (gastroesophageal reflux disease) History of torn meniscus of right knee Hypersomnia Intracranial hemorrhage Obstructive sleep apnea Other specified disorders of tendon, right wrist PAT (paroxysmal atrial tachycardia) Surgical History Surgical History H/O eye surgery (~2018) left H/O: hysterectomy (~1987) Hx of tonsillectomy (~1954) S/P cholecystectomy (~07/2019) S/P nasal polypectomy (~1964) S/P removal of thyroid nodule (~1990) Family History Family History Father Family history of malignant neoplasm Grandparent Family history of Parkinson's disease Social History Social History Smoking status: Never smoker Second hand tobacco smoke exposure: Yes Alcohol intake: never Substance use: never Substance use type: does not use Gender identity (if verbalized by the patient): Female Spiritual care concerns: No Agree to blood p
[2020-04-01 00:10] VITALS: BMI 25.8
== END 2020-03-15 07:48 | disposition home or self-care (01) ==
LOC: ANHCSM 07:47
PROVIDERS: PCP Family Medicine; Visit Provider Internal Medicine Cardiovascular Disease
DX: G47.33 Obstructive sleep apnea (adult) (pediatric) (principal)
CPT/HCPCS: 95811

== ENCOUNTER 2020-11-24 11:19 | Outpatient (CLI) | payer MEDICARE, SELFPAY ==
--- NOTE | ~2020-11-24 | US_ITS ---
EXAMINATION: US thyroid DATE: 11/24/2020 12:06 INDICATION: Nontoxic single thyroid nodule TECHNIQUE: Multiple ultrasound images of the thyroid were obtained. COMPARISON: 10/16/2017 Plane is incompletely is seen in this thousand and FINDINGS: The right thyroid lobe is surgically absent with no abnormal nodules or mass identified at the right thyroid fossa. The left thyroid lobe measures 6.7 x 5.8 x 5.6 cm. 3.9 cm wider than tall isoechoic s olid nodule with partially smooth, partially ill-defined margins without echogenic foci (TI-RADS 3, m ildly suspicious , FNA if >=2.5 cm, annual followup is >=1.5 cm). There are couple additional similar -appearing TI RADS 3 nodule nodules in the left thyroid lobe as well as a 10 mm TI RADS 1 [address] stic nodule. IMPRESSION: 1. Three TI RADS 3 nodules with similar appearance in the left thyroid lobe measuring 1.8 cm, 2.0 cm and 3.9 cm. Would recommend biopsy of the largest 3.9 cm nodule. Reviewed, dictated and finalized at location A. IMPRESSION: 1. Three TI RADS 3 nodules with similar appearance in the left thyroid lobe isaias suring 1.8 cm, 2.0 cm and 3.9 cm. Would recommend biopsy of the largest 3.9 cm nodule.
== END 2020-11-24 11:20 | disposition home or self-care (01) ==
PROVIDERS: PCP Internal Medicine; Visit Provider Nurse Practitioner
DX: E04.1 Nontoxic single thyroid nodule (principal)
CPT/HCPCS: 76536

== ENCOUNTER 2020-12-01 10:50 | Outpatient (CLI) | payer MEDICARE, SELFPAY ==
--- NOTE | ~2020-12-01 | US_ITS ---
EXAMINATION: US FNA w image guidance DATE: 12/01/2020 12:22 INDICATION: Nontoxic single left thyroid nodule TECHNIQUE: A time-out was performed to verify the patient's name, date of , and procedure to be performed . The procedure and its benefits and risks were discussed with the patient. Risks specifically discus sed included bleeding and infection. The patient understood the risks and agreed to proceed. The neck was prepped and draped in the usual sterile manner. 5 mL 1% lidocaine was used for local anesthesia . 6 passes were made with a 25G needle into the lesion. Appropriate needle location was documented with continuous sonographic guidance. The specimens were passed to the wood technologist in the room. A sterile bandage was applied. There were no immediate complications. FINDINGS: Grayscale ultrasound images demonstrate biopsy needles advanced into a 3.9 cm predominantly solid lef t thyroid mass. IMPRESSION: 1. Successful ultrasound-guided fine needle aspiration of . Reviewed, dictated and finalized at location A.
== END 2020-12-01 10:51 | disposition home or self-care (01) ==
LOC: ANHIMG 10:52
PROVIDERS: PCP Internal Medicine; Visit Provider Nurse Practitioner
DX: E04.1 Nontoxic single thyroid nodule (principal)
CPT/HCPCS: 10005; 88173; 88305

== ENCOUNTER 2020-12-28 15:05 | Outpatient (CLI) | payer MEDICARE, SELFPAY ==
--- NOTE | ~2020-12-28 | DEXA_ITS ---
Bone Density Report Name: Ashley Sebastian Age: 70 Sex: Female Ethnicity: White Date of : 1950 Indication: postmenopausal; height loss; hysterectomy; Referring Provider: Antoinette Bess Study: Bone densitometry was performed. Exam Date: December 28, 2020 Accession number: [id number] Bone Density: Region BMD T-score Z-score Classification AP Spine (L1-L4) 0.950 -0.9 1.4 Normal Femoral Neck (Left) 0.495 -3.2 -1.3 Osteoporosis Total Hip (Left) 0.661 -2.3 -0.7 Osteopenia Total Hip Bilateral Avg 0.608 -2.8 -1.1 Osteoporosis Femoral Neck (Right) 0.471 -3.4 -1.5 Osteoporosis Total Hip (Right) 0.554 -3.2 -1.6 Osteoporosis World Health Organization criteria for BMD impression classify patients as: Normal (T-score at or above -1.0), Osteopenia (T-score between -1.0 and -2.5), or Osteoporosis (T-score at or below -2.5). 10-year Fracture Risk: FRAX not reported because: Some T-score for Spine Total or Hip Total or Femoral Neck at or below -2.5 Clinical Information Provided by Patient: Has the following medical conditions: Hysterectomy Patient maximum height was 66 Menopause Age: 45 No regular weight bearing exercise Onset of menses at age 11 Number of children 0 Impression: The patient has osteoporosis, based on the Right Femoral Neck T-score. Discussion: INCREASED RISK OF FRACTURE. BONE DENSITY IS UNDESIRABLY LOW AT ONE OR MORE SKELETAL SITES, CONSISTENT WITH POSTMENOPAUSAL OSTEOPOROSIS. This patient's lowest T-score meets the World Health Organization's (WHO) criteria for osteoporosis at one or more sites (T-score -2.5 or below). In untreated patients, the risk of osteoporotic fracture increases approximately two-fold for each 1.0 SD decrease in T-score. Low bone density is not the only risk factor for fracture; also consider factors such as patient's age, frailty or poor health, risk of falling, risk of injury, previous osteoporotic fracture, family history of osteoporosis, cigarette smoking, low body weight, etc. Not everyone with low bone mineral density has osteoporosis; osteomalacia and other metabolic bone disorders should also be considered. Patients who have osteoporosis should be evaluated for specific diseases and conditions (secondary causes) that may cause or contribute to bone loss. The [place] [employer]ocrin[employer] (AACE) and National Osteoporosis Foundation (NOF) recommend pharmacologic intervention for all postmenopausal women whose T-score is in this range. The patient should follow a healthful lifestyle (good nutrition with adequate calcium and vitamin D, and appropriate weight-bearing exercise). Follow-Up: Consider a repeat BMD and Vertebral Fracture Assessment (VFA) exam in 2 years or sooner if medically necessary, to reassess this patient's status. Reported by: [facility] on
--- NOTE | ~2020-12-28 | MM_ITS ---
EXAMINATION: MM screening vahid BI w tia HISTORY: Screening mammogram TECHNIQUE: Craniocaudal and mediolateral oblique 3-D tomosynthesis images were obtained and synthetic 2-D images were generated. CAD analysis was submitted and interpreted. COMPARISON: No prior mammogram is available for comparison at this institution. BREAST PARENCHYMAL COMPOSITION: There are scattered areas of fibroglandular density. FINDINGS: There is no evidence of suspicious mass, calcification, or architectural distortion to sugg est malignancy in either breast. IMPRESSION: 1. No mammographic evidence of malignancy. 2. Recommend routine screening mammography in one year. BI-RADS Category 1: Negative Reviewed, dictated and finalized at location A.
== END 2020-12-28 15:06 | disposition home or self-care (01) ==
LOC: ANHIMG 15:07
PROVIDERS: PCP Internal Medicine; Visit Provider Nurse Practitioner
DX: Z12.31 Encounter for screening mammogram for malignant neoplasm of breast (principal); Z78.0 Asymptomatic menopausal state; M81.0 Age-related osteoporosis without current pathological fracture; M85.852 Other specified disorders of bone density and structure, left thigh
CPT/HCPCS: 77063; 77067; 77080

== ENCOUNTER 2021-01-29 13:28 | Inpatient (IN) | payer MEDICARE, SELFPAY ==
[2021-01-29] VITALS (15 sets, daily range): BP systolic 121–204; BP diastolic 49–97; PULSE 52–77; RESP 12–21; TEMP 36.6–37.1; O2SAT 93–99; BMI 28.6
--- NOTE | ~2021-01-29 | CT_ITS ---
EXAMINATION: CT abdomen pelvis wo con DATE: 01/29/2021 15:20 INDICATION: Abdominal pain, nausea and bloating. TECHNIQUE: Computed tomography (CT) of the abdomen and pelvis was performed without intravenous contr ast. Automated exposure control and iterative reconstruction technique were employed. The dose-length product was 746.64 mGy-cm. COMPARISON: None FINDINGS: There is approximately 1.9 x 1.2 cm more nodular region of consolidation along a linear band of disco id atelectasis/scarring at the anterior basal left lower lobe. Additional mild atelectasis in the rig ht lower lobe. Cardiomegaly. Aortic valve calcification. No pericardial effusion. Small left pleural effusion. Cholecystectomy clips at the gallbladder fossa. Liver, spleen, pancreas and bilateral adren al glands are normal. Bilateral low-attenuation renal cysts, the larger at the upper pole of the righ t kidney measuring 2.0 cm. There are couple approximately 1 cm exophytic left renal lesions which dem onstrate higher attenuation which are equivocal for proteinaceous/hemorrhagic cysts or solid neoplasm . There are multiple dilated loops of small bowel in the lower abdomen and pelvis with abrupt transit ion point in the distal ileum approximately 10 cm from the ileocecal valve consistent with bowel obst ruction. There is a second abrupt transition point in relatively close proximity with edematous wall thickening of the intervening small bowel consistent with closed loop obstruction and likely bowel is chemia. No pneumatosis or free intraperitoneal gas. Both of the transition points can be seen on axia l series 3, image 100 and coronal series 601, image 46. Moderate diverticulosis with descending and s igmoid colon predominance. The appendix is not visualized. Small amount of ascites in the abdomen and pelvis as well as extending into a small left inguinal hernia. Decompressed bladder is unremarkable. The uterus is not identified and has likely been surgically resected. No pathologically enlarged abd ominal or pelvic lymphadenopathy. Moderate amount of fluid in the left iliopsoas bursa consistent wit h bursitis. Severe thoracolumbar spondylosis. IMPRESSION: 1. Closed loop small bowel obstruction with prominent edematous wall thickening of the intervening sm all bowel concerning for secondary ischemia. Dr. Love discussed these findings with Dr. Richmond at 3:32 PM. 2. Small amount of likely reactive ascites in the abdomen, pelvis as well as a small left inguinal he rnia. 3. Cardiomegaly. 4. 0.9 x 1.2 cm nodular region along the band of discoid atelectasis/scarring in the anterior basilar left lower lobe. This could represent additional atelectasis or neoplasm. Correlate with any prior o utside imaging and consider short interval follow-up chest CT at full inspiration when patient is cli nically improved. 5. Small left pleural effusion. 6. A couple indeterminate 1 cm exophytic left renal lesions most likely proteinaceous/hemorrhagic cys t although differential also includes neoplasm. Recommend further evaluation with pre and postcontras t MRI or CT . Reviewed, dictated and finalized at location A. IMPRESSION: 1. Closed loop small bowel obstruction with prominent edematous wall thickening of the intervening small bowel concerning for secondary ischemia. Dr. Love discussed these findings with Dr. Richmond at 3:32 PM. 2. Small amount of likely reactive ascites in the abdomen, pelvis as well as a small left inguinal hernia. 3. Cardiomegaly. 4. 0.9 x 1.2 cm nodular region along the band of discoid atelectasis/scarring i n the anterior basilar left lower lobe. This could represent additional atelect asis or neoplasm. Correlate with any prior outside imaging and consider short i nterval follow-up chest CT at full inspira
--- NOTE | ~2021-01-29 | XR_ITS ---
EXAMINATION: XR abdomen NG/feed tube insert DATE: 01/29/2021 16:11 INDICATION: Small bowel obstruction. Nasogastric tube placement. TECHNIQUE: A supine view of the abdomen and lower chest was obtained for evaluation of feeding tube placement. COMPARISON: CT dated 01/29/2021 FINDINGS: Is a gastric tube tip in proximal side port in the body of the decompressed stomach. There are few ga s-filled but not frankly dilated loops of small bowel in the left upper quadrant. Cholecystectomy cli ps in right upper quadrant. Mild bibasilar atelectasis. Cardiomegaly. Severe thoracolumbar spondylosi s. IMPRESSION: 1. Nasogastric tube in the stomach. Reviewed, dictated and finalized at location A.
[2021-01-29 14:17] LABS: Basophils Percent Auto 0.4 % (0.2-1.2); Eosinophils Absolute Auto 0.2 K/mm3 (0-0.3); Eosinophils Percent Auto 1.3 % (0-4.4); Hematocrit 47.2 % (37.0-47.0); Hemoglobin 15.7 g/dL (12.0-15.0); Immature Granulocyte Absolute 0.05 K/mm3 (0.00-0.031); Immature Granulocyte Percent A 0.4 % (0-0.5); Lymphocytes Absolute Auto 1.05 K/mm3 (0.9-3.2); Lymphocytes Percent Auto 9.3 % (18.3-44.2); Mean Corpuscular HGB Conc 33.3 g/dl (32-36); Mean Corpuscular Hemoglobin 29.1 pg (26-34); Mean Corpuscular Volume 87.6 fl (80-100); Mean Platelet Volume 9.4 fl (7.4-10.4); Monocytes Absolute Auto 0.6 K/mm3 (0.1-0.6); Monocytes Percent Auto 5.1 % (2.6-8.5); Neutrophils Absolute Auto 9.5 K/mm3 (1.3-6.7); Neutrophils Percent Auto 83.5 % (45.5-73.1); Platelet Count Result 334 k/mm3 (150-375); Red Blood Count 5.39 M/mm3 (4.2-5.4); Red Cell Distribution Width 13.8 % (11.5-14.5); White Blood Count 11.4 K/mm3 (4.5-10.0)
[2021-01-29 14:24] LABS: Alanine Aminotransferase 18 U/L (4-35); Albumin Level 4.8 g/dL (3.5-5.1); Alkaline Phosphatase 76 U/L (38-126); Anion Gap 12 mmol/L (8-16); Aspartate Amino Transferase 27 U/L (14-36); Bilirubin,Total 2.8 mg/dL (0.2-1.3); Blood Urea Nitrogen 17 mg/dL (7-17); Calcium 9.4 mg/dL (8.4-10.2); Carbon Dioxide 21 mmol/L (22-30); Chloride 101 mmol/L (98-107); Estimated CRCL calculation 60 ml/min; Estimated Glomerular Filt Rate > 60; Glucose 136 mg/dL (65-110); Lipase 339 U/L (23-300); Potassium 3.6 mmol/L (3.4-5.0); Sodium 134 mmol/L (137-145)
[2021-01-29 15:18] LABS: Add Urine Microscopic? YES; Appearance Urine Clear (Clear); Bilirubin Urine Negative (Negative); Blood Urine Negative (Negative); Color Urine Yellow (Yellow); Glucose Urine UA Negative (Negative); Ketones Urine 1+ mg/dL (Negative); Leukocyte Esterase Ur Negative LEU/UL (Negative); Nitrate Urine Negative (Negative); Protein Urine 2+ mg/dL (Negative); RBC Urine 0-2 /hpf (0-2); Specific Grav Ur 1.019 (1.001-1.035); Squamous Epithelial Cell Urine Rare /hpf (Few); Urobilinogen Urine Negative mg/dL (<2.0); WBC Urine 0-3 /hpf
[2021-01-29] MEDS: SODIUM CHLORIDE 0.9% IV 1,000 ML 999 ML IV CONT ×2 (15:38→17:01)
--- NOTE | 2021-01-29 15:49 | ED.ABDPAIN ---
HPI - Abdominal Pain General Chief Complaint: Abdominal Pain Stated Complaint: abdominal pain Time Seen by Provider: 01/29/21 15:02 Source: patient and RN notes reviewed Mode of arrival: ambulatory Limitations: no limitations History of Present Illness HPI narrative: Patient is 70 years old white female lives alone came to the emergency room because of abdominal pain which started automotive consultant. Woke her up from sleep. Bloating, gas feeling, gradually getting worse. Associated with nausea. Patient denies any fever, chills, vomiting, chest pain or shortness of breath for the last history of cholecystectomy, hysterectomy and hypertension. Patient does not take blood thinner, does not smoke or drink or uses drugs. Patient is fully vaccinated for COVID-19 Related Data Home Medications Medication Instructions Recorded Confirmed cholecalciferol (vitamin D3) 50 50 mcg PO DAILY 11/21/20 11/24/20 mcg (2,000 unit) tablet hydralazine 50 mg PO TID 01/29/21 Allergies Allergy/AdvReac Type Severity Reaction Status Date / Time anise oil Allergy Severe Wheezing Verified 11/24/20 10:29 atenolol Allergy Intermediate Dyspnea / Verified 11/24/20 10:29 SOB iodine Allergy Intermediate Itching Verified 11/24/20 10:29 Penicillins Allergy Unknown Unknown Verified 11/24/20 10:29 - A CHILD sertraline [From Zoloft] AdvReac Intermediate Diarrhea Verified 11/24/20 10:29 amlodipine AdvReac Mild forgetfulln Verified 11/24/20 10:29 ess amoxicillin [From Augmentin] AdvReac Unknown Unknown Verified 11/25/20 16:24 clavulanic acid AdvReac Unknown Unknown Verified 11/25/20 16:24 [From Augmentin] fennel Allergy Severe Difficulty Uncoded 11/16/20 11:18 Breathing Review of Systems Review of Systems: CONSTITUTIONAL: Denies fever, chills, or sweats. EYES: Denies visual changes, redness, or discharge. ENT: Denies rhinorrhea, congestion, sore throat, or otalgia. CARDIOVASCULAR: Denies chest pain, palpitations, or edema. RESPIRATORY: Denies cough or dyspnea. GASTROINTESTINAL: Abdominal pain with nausea GENITOURINARY: Denies dysuria or hematuria. SKIN: Denies rash or itching. MUSCULOSKELETAL: Denies back pain, joint pain, or myalgia. NEUROLOGIC: Denies headache, numbness, or weakness. PSYCHIATRIC: Denies anxiety or depression. [facility] Past Medical History Medical History 1st degree AV block Acquired cataract Calculus of gallbladder with cholecystitis without biliary obstruction Cholelithiases Chronic cholecystitis with calculus BRADLEY (dyspnea on exertion) Dyshidrotic eczema (~1996) Dyslipidemia Ectopic atrial rhythm Elevated bilirubin Essential hypertension (~03/1997) Generalized anxiety disorder GERD (gastroesophageal reflux disease) History of torn meniscus of right knee Hypersomnia Intracranial hemorrhage Obstructive sleep apnea Other specified disorders of tendon, right wrist PAT (paroxysmal atrial tachycardia) Surgical History Surgical History H/O eye surgery (~2018) left H/O: hysterectomy (~1987) Hx of tonsillectomy (~1954) S/P cholecystectomy (~07/2019) S/P nasal polypectomy (~1964) S/P removal of thyroid nodule (~1990) Family History Family History Father Family history of malignant neoplasm Grandparent Family history of Parkinson's disease Social History Social History Smoking status: Never smoker Second hand tobacco smoke exposure: Yes Alcohol intake: current Alcohol use details: rarely Substance use: never Substance use type: does not use Gender identity (if verbalized by the patient): Female Spiritual care concerns: No Agree to blood products: Yes Exam Narrative: General appearance: Well-developed, well-nourished Skin: Normal color Head: Normocephalic, nontraumatic E
[2021-01-29 15:59] LABS: Lactic Acid Reflex 1.3 mmol/L (0.7-2.1)
[2021-01-29] MEDS: ONDANSETRON INJ 4 MG/2 ML VIAL IV PUSH (16:05)
[2021-01-29] MEDS: MORPHINE SULFATE (*CRX) 4 MG/ML INJ IV PUSH (16:05)
--- NOTE | 2021-01-29 16:07 | ECG_ITS ---
Measurements Intervals [place] Rate: 56 P: 23 VT: 169 QRS: -2 QRSD: 106 T: 49 QT: 512 QTc: 496 Interpretive Statements SINUS BRADYCARDIA FREQUENT ATRIAL PREMATURE COMPLEXES ANTEROSEPTAL INFARCT, AGE INDETERMINATE ST ABNORMALITY IN HIGH LATERAL LEADS- CONSIDER ISCHEMIA ABNORMAL ECG Electronically Signed On 01-29-2021 20:31:58 CDT by Anton Morales D.O.
[2021-01-29] MEDS: hydrALAZINE HCL 20 MG/ML VIAL 10 MG IV PUSH (16:10)
--- NOTE | 2021-01-29 16:53 | PM.IMHP ---
H&P: HPI History of Present Illness Date/Time: 01/29/21 16:53 [facility] Past Medical History Medical History 1st degree AV block Acquired cataract Calculus of gallbladder with cholecystitis without biliary obstruction Cholelithiases Chronic cholecystitis with calculus BRADLEY (dyspnea on exertion) Dyshidrotic eczema (~1996) Dyslipidemia Ectopic atrial rhythm Elevated bilirubin Essential hypertension (~03/1997) Generalized anxiety disorder GERD (gastroesophageal reflux disease) History of torn meniscus of right knee Hypersomnia Intracranial hemorrhage Obstructive sleep apnea Other specified disorders of tendon, right wrist PAT (paroxysmal atrial tachycardia) Surgical History Surgical History H/O eye surgery (~2018) left H/O: hysterectomy (~1987) Hx of tonsillectomy (~1954) S/P cholecystectomy (~07/2019) S/P nasal polypectomy (~1964) S/P removal of thyroid nodule (~1990) Family History Family History Father Family history of malignant neoplasm Grandparent Family history of Parkinson's disease Social History Social History Smoking status: Never smoker Second hand tobacco smoke exposure: Yes Alcohol intake: current Alcohol use details: rarely Substance use: never Substance use type: does not use Gender identity (if verbalized by the patient): Female Spiritual care concerns: No Agree to blood products: Yes Meds Home Medications and Allergies Home Medications Medication Instructions Recorded Confirmed Type carvedilol 12.5 mg tablet 12.5 mg PO Q12HR #180 tablet 02/26/20 11/24/20 Rx losartan 50 mg tablet See Rx Instructions .ROUTE 06/01/20 11/24/20 Rx .COMPLEX #180 tablet cholecalciferol (vitamin D3) 50 50 mcg PO DAILY 11/21/20 11/24/20 History mcg (2,000 unit) tablet alendronate 70 mg tablet 70 mg PO WEEKLY #12 tablet 12/30/20 Rx calcium carbonate 500 mg calcium 500 mg PO DAILY #90 tablet 12/30/20 Rx (1,250 mg) tablet hydralazine 50 mg PO TID 01/29/21 History Allergies Allergy/AdvReac Type Severity Reaction Status Date / Time anise oil Allergy Severe Wheezing Verified 11/24/20 10:29 atenolol Allergy Intermediate Dyspnea / Verified 11/24/20 10:29 SOB iodine Allergy Intermediate Itching Verified 11/24/20 10:29 Penicillins Allergy Unknown Unknown Verified 11/24/20 10:29 - A CHILD sertraline [From Zoloft] AdvReac Intermediate Diarrhea Verified 11/24/20 10:29 amlodipine AdvReac Mild forgetfulln Verified 11/24/20 10:29 ess amoxicillin [From Augmentin] AdvReac Unknown Unknown Verified 11/25/20 16:24 clavulanic acid AdvReac Unknown Unknown Verified 11/25/20 16:24 [From Augmentin] fennel Allergy Severe Difficulty Uncoded 11/16/20 11:18 Breathing Vital Signs Vital Signs - 24 hr 01/29/21 13:37 Temperature 98.4 F Pulse Rate 57 L Respiratory Rate 20 Blood Pressure 204/95 H Pulse Oximetry 97 H&P: Results Labs Labs: Short CBC 01/29/21 Range/Units 14:08 WBC 11.4 H (4.5-10.0) K/mm3 Hgb 15.7 H D (12.0-15.0) g/dL Hct 47.2 H (37.0-47.0) % Plt Count 334 (150-375) k/mm3 BMP 01/29/21 14:08 Sodium 134 L Potassium 3.6 Chloride 101 Carbon Dioxide 21 L BUN 17 Creatinine 0.80 Glucose 136 H Calcium 9.4 Liver Function 01/29/21 Range/Units 14:08 Total Bilirubin 2.8 H (0.2-1.3) mg/dL AST 27 (14-36) U/L ALT 18 (4-35) U/L Alkaline Phosphatase 76 (38-126) U/L Albumin 4.8 (3.5-5.1) g/dL Urine 01/29/21 Range/Units 15:10 Urine Color Yellow (Yellow) Urine Appearance Clear (Clear) Urine pH 5.0 (5.0-9.0) Ur Specific [place] 1.019 (1.001-1.035) Urine Protein 2+ H (Negative) mg/dL Urine Glucose (UA) Negative (Negative) mg/dL
--- NOTE | 2021-01-29 17:17 | PM.IMHP ---
H&P: HPI History of Present Illness Date/Time: 01/29/21 17:17 Chief Complaint: abdominal pain Narrative: history of present illness: This patient is a pleasant 70-year-old white female with a past history of fairly severe hypertension such that she was even transferred for a possible subarachnoid hemorrhage in 2021 [place]. 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 She also has had history of possible hypothyroidism after a partial thyroidectomy in the distant past but recently had a thyroid biopsy which was benign and is now off of thyroid medication. She had acute onset of abdominal pain earlier today. She has had several previous intra-abdominal surgeries more than 20 years ago a open hysterectomy that she believes was a TA SP a so and then also approximately 2 years ago a laparoscopic cholecystectomy by 1 of our surgeons here at [place]. Patient states that she will woke up this morning feeling somewhat anorexic and pain gradually came on through the day. When she 1st woke up it was upper abdominal all across the abdomen with some bloating. Then it continued to get worse so she came to the emergency room. Workup in the emergency room included labs and a CT scan. The white count is mildly up at 11,000 and her total bilirubin is slightly up at 2.8 but the other liver function tests are normal. Lactic acid is normal at 1.3 however her lipase is somewhat elevated at 339. CT scan of the abdomen and pelvis revealed what appears to be a closed loop small-bowel obstruction in the lower to mid right abdomen. There is proximal decompressed small bowel and distal decompressed small bowel per the radiologist. Because of this she may be at risk for ischemia to the intervening bowel and therefore I have recommended urgent surgical intervention. See plan below. Review of Systems Constitutional: Constitutional: Reports as per HPI, Reports no additional constitutional complaints, Denies headache(s) and Reports malaise Eyes: Eyes: Denies loss of vision and Denies eye pain ENT: Reports Normal hearing present, Denies change in voice, Denies dizziness and Denies headache(s) Cardiovascular: Cardiovascular: Denies chest pain, Denies edema and Denies dyspnea Comments: Patient denies any recent chest pain, shortness of breath or other problems. She does have known fairly severe hypertension ( on 3 meds) She also had a recent cardiology visit with Dr. Anderson and no significant abnormalities were identified. Respiratory: Respiratory: Denies dyspnea and Denies wheezing Gastrointestinal: Gastrointestinal: Reports abdominal pain ( Mainly across the mid abdomen with some bloating) and Reports change in bowel habits ( diarrhea while on sertraline but this has been stopped) Comments: Recently she has been having 1-2 bowel movements a day without much difficulty and no recent diarrhea. Musculoskeletal: Musculoskeletal: Denies back pain and Denies arthralgias Neurologic: Reports Normal hearing present, Denies dizziness, Denies headache(s), Denies loss of vision and Denies memory loss Psychiatric: Psychiatric: Denies memory loss and Denies panic attacks Endocrine: Endocrine: Reports no additional endocrine complaints Hematologic/Lymphatic: Hematologic/Lymphatic: Reports no additional hematologic/lymphatic complaints Allergic/Immunologic: Allergic/Immunologic: Denies wheezing [facility] Past Medical History Medical History (Updated 01/29/21 @ 17:45 by Reji Hudson MD) 1st degree AV block Acquired cataract Calculus of gallbladder with cholecystitis without biliary obstruction Cholelithiases Chronic cholecystitis with calculus BRADLEY (dyspnea on exertion) Dyshidrotic eczema (~1996) Dyslipidemia Ectopic atrial rhythm Elevated bilirubin Essential hypertension (~03/1997) Generalized anxiety disorder GERD (gastroes
--- NOTE | 2021-01-29 17:28 | WPDANESEPP ---
Anes - Eval Pre Procedure Procedure: Exploratory Laparoscopy Date/Time: 01/29/21 17:28 Surgeon: Tristan Preop Diagnosis: Possible small bowel obstruction Pre Op Diagnosis: abdominal pain Patient Data Age: 70 Gender: F Height: 1.68 m Weight: 81.6 kg Last Vital Signs Temp 36.9 C 01/29/21 13:37 Pulse 52 L 01/29/21 17:00 Resp 21 H 01/29/21 17:00 BP 173/92 H 01/29/21 17:00 Pulse Ox 99 01/29/21 17:00 Allergies Allergy/AdvReac Type Severity Reaction Status Date / Time anise oil Allergy Severe Wheezing Verified 11/24/20 10:29 atenolol Allergy Intermediate Dyspnea / Verified 11/24/20 10:29 SOB iodine Allergy Intermediate Itching Verified 11/24/20 10:29 Penicillins Allergy Unknown Unknown Verified 11/24/20 10:29 - A CHILD sertraline [From Zoloft] AdvReac Intermediate Diarrhea Verified 11/24/20 10:29 amlodipine AdvReac Mild forgetfulln Verified 11/24/20 10:29 ess amoxicillin [From Augmentin] AdvReac Unknown Unknown Verified 11/25/20 16:24 clavulanic acid AdvReac Unknown Unknown Verified 11/25/20 16:24 [From Augmentin] fennel Allergy Severe Difficulty Uncoded 11/16/20 11:18 Breathing Home Medications Medication Instructions Recorded Confirmed Type carvedilol 12.5 mg tablet 12.5 mg PO Q12HR #180 tablet 02/26/20 11/24/20 Rx losartan 50 mg tablet See Rx Instructions .ROUTE 06/01/20 11/24/20 Rx .COMPLEX #180 tablet cholecalciferol (vitamin D3) 50 50 mcg PO DAILY 11/21/20 11/24/20 History mcg (2,000 unit) tablet alendronate 70 mg tablet 70 mg PO WEEKLY #12 tablet 12/30/20 Rx calcium carbonate 500 mg calcium 500 mg PO DAILY #90 tablet 12/30/20 Rx (1,250 mg) tablet hydralazine 50 mg PO TID 01/29/21 History Laboratory Tests 01/29/21 01/29/21 01/29/21 14:08 14:08 15:10 WBC 11.4 K/mm3 H K/mm3 (4.5-10.0) RBC 5.39 M/mm3 M/mm3 (4.2-5.4) Hgb 15.7 g/dL H D g/dL (12.0-15.0) Hct 47.2 % H % (37.0-47.0) MCV 87.6 fl fl (80-100) MCH 29.1 pg pg (26-34) MCHC 33.3 g/dl g/dl (32-36) RDW 13.8 % % (11.5-14.5) Plt Count 334 k/mm3 k/mm3 (150-375) MPV 9.4 fl fl (7.4-10.4) Immature Gran % (Auto) 0.4 % % (0-0.5) Neut % (Auto) 83.5 % H % (45.5-73.1) Lymph % (Auto) 9.3 % L % (18.3-44.2) Shannon % (Auto) 5.1 % % (2.6-8.5) Eos % (Auto) 1.3 % % (0-4.4) Baso % (Auto) 0.4 % % (0.2-1.2) Lymph # (Auto) 1.05 K/mm3 K/mm3 (0.9-3.2) Shannon # (Auto) 0.6 K/mm3 K/mm3 (0.1-0.6) Eos # (Auto) 0.2 K/mm3 K/mm3 (0-0.3) Baso # (Auto) 0.0 K/mm3 K/mm3 (0.0-0.1) Abs Immat Gran (auto) 0.05 K/mm3 H K/mm3 (0.00-0.031) Absolute Neuts (auto) 9.5 K/mm3 H K/mm3 (1.3-6.7) Absolute Nucleated RBC 0.0 K/mm3 K/mm3 (0.0-0.012) Nucleated RBC % 0.0 % % (0.0-0.2) Sodium 134 mmol/L L mmol/L (137-145) Potassium 3.6 mmol/L mmol/L (3.4-5.0) Chloride 101 mmol/L mmol/L (98-107) Carbon Dioxide 21 mmol/L L mmol/L (22-30) Anion Gap 12 mmol/L mmol/L (8-16) BUN 17 mg/dL mg/dL (7-17) Creatinine 0.80 mg/dL mg/dL (0.7-1.0) Estim Creat Clear Calc 60 ml/min ml/min Estimated GFR > 60 (59 - ) Glucose 136 mg/dL H mg/dL (65-110) Lactic Acid Calcium 9.4 mg/dL mg/dL (8.4-10.2) Total Bilirubin 2.8 mg/dL H mg/dL (0.2-1.3) AST 27 U/L U/L (14-36) ALT 18 U/L U/L (4-35) Alkaline Phosphatase 76 U/L U/L (38-126) Total Protein 8.0 g/dL g/dL (6.3-8.2) Albumin 4.8 g/dL g/dL (3.5-5.1) Lipase 339 U/L H U/L (23-300) Urine Color Yellow (Yellow) Urine Appearance Clear (Clear) Urine pH 5.0 (5.0-9.0) Ur Specific [place] 1.019
[2021-01-29] MEDS: CLINDAMYCIN 900 MG/D5W 50 ML 900 MG/50 ML PIGGYBACK 50 MG IVPB (18:24)
[2021-01-29] MEDS: BUPIVACAINE/EPINEPHRINE 0.5% 30 ML VIAL 20 ML INFILTRATE (19:01)
--- NOTE | 2021-01-29 19:48 | WPDANESEFPP ---
Anes - Eval Final PreProcedure Day of Procedure 01/29/21 19:48 Patient weight: overweight Heart: regular rate and rhythm Lungs: clear to auscultation Airway: Mallampati scale class II Neurological: alert and oriented Last oral intake: >/= 8 hours ASA classification: III Emergent: yes Anesthetic plan: proceed Anesthesia type and monitoring: general ETT and standard monitoring Informed Consent: The patient's anesthetic plan and its attendant risks and benefits were discussed with the patient/family/POA. Questions were solicited and answers provided to the satisfaction of the patient/family/POA.
[2021-01-29] MEDS: LACTATED RINGERS 1,000 ML 30 ML IV CONT ×2 (19:57)
--- NOTE | 2021-01-29 20:07 | W.PM.PROC2 ---
Procedure Note - Detailed Date of Procedure 01/29/21 Pre-op Diagnosis Small bowel obstruction Post-op Diagnosis other (Closed loop small bowel obstruction due to adhesions) Procedure Performed Operative laparoscopy with lysis of adhesions and release of small-bowel obstruction. Surgeon Reji Hudson MD [employer] JOSE MIGUEL Estevez, OR 1st assist Anesthesia general Indications See H&P By CT patient had evidence of a closed loop small-bowel obstruction with wall thickening suggestive of ischemia. The lipase was slightly up but lactic acid was normal. There were nondistended loops of proximal and distal small bowel and the situation it was felt that it was urgent to proceed to operative intervention to possibly prevent small-bowel ischemia. Findings There were adhesions of a portion of the omentum up to the anterior abdominal wall underneath her old hysterectomy scar which was vertical midline. After these were taken down I followed the small bowel to a place in the right mid abdomen where there was a tight band across the bowel. This was released. Immediately the darkish red dilated bowel that was lying in the right lower abdomen began to pink up and turned bright red. No other adhesions causing obstruction were found. Description of Procedure The patient was brought back to surgery and after being placed supine on the operating table she was anesthetized and put under and general endotracheal anesthesia. James catheter was then placed. Following this the abdomen was prepped and draped in usual sterile fashion exposing the entire abdomen for left laparoscopy possible laparotomy. Following this a timeout was performed with the surgery team confirming the site of surgery being the abdomen. Following this we started by making sure the NG was connected to some intermittent suction. The patient was placed slightly head up and small incision was made in the left upper quadrant 2 fingerbreadths below the costal margin after placing local anesthetic into the area. Following this a Veress needle was used to carefully enter the abdomen and the water drop test was performed confirming that we were in. Following this the abdomen was insufflated to 50 mm of mercury mercury pressure CO2 gas and the Veress needle removed. A 5 mm trocar was placed over 0 degree 5 mm scope and carefully twisted and turned into the abdomen in the left upper quadrant. Initial attempt did not seem to go all the way through the posterior fascia. I therefore removed the trocar reapplied the scope through the trocar and then again twisted and turned the scope through all the layers until we could see free space within the abdomen. We then carefully held the port in place I removed the scope removed the trocar placed the scope back through the port and connected to the port to high-flow CO2. We could then see well within the abdominal cavity. There was some preperitoneal gas along the left side of the abdomen because of initial insufflation without the needle or port completely in the peritoneum. This however did not had her our vision. Our initial llook around the abdomen showed a wide tongue of omentum attached the underside of the anterior abdominal wall starting at the umbilicus and going inferior along the old scar under her lower abdominal scar from the hysterectomy. There were also adhesions of the colon to the right lateral abdominal wall. There was dark ascitic fluid both in the right upper quadrant and in the pelvis which was suctioned away and A total after the end of surgery was 390 cc. This was suctioned away with the suction buttonhole marker. Also noted in the right lower abdomen was a loop of distended dusky red small bowel. Therefore, I first started by carefully taking down the omentum off the anterior abdominal wall. This was able to be done after placing 2 more 5 mm trocars in the left abdomen in along the midclavicular line line. These were placed under direct vision with the lap
--- NOTE | 2021-01-29 21:23 | PM.IMCN ---
Assessment and Plan Assessment and plan (1) Complete small bowel obstruction: Onset Date: ~01/29/21 Code(s): K56.601 - Complete intestinal obstruction, unspecified as to cause Status: Acute (2) Uncontrolled hypertension: Code(s): I10 - Essential (primary) hypertension Status: Acute Additional Plan The patient was taken surgery from the ER due to concern for possible bowel ischemia noted on CT scan. We have been consulted for management of patient's medical issues. She has had history of his hypertensive urgency in the past in the ER her blood pressures were quite elevated. I suspect that her blood pressure elevation for the most part was due to her severe pain from her intra-abdominal process. Will monitor blood pressures closely postoperatively and will provide IV antihypertensives as indicated. HPI Data of Consult Requesting Physician: Reji Hudson MD Primary Care Provider: Fermin Oliveros DO Consult Narrative Narrative: Ashley Sebastian is a 70 year old female with a past medical history of diastolic dysfunction without history of heart failure, paroxysmal atrial tachycardia, hysterectomy and cholecystectomy who presented to the ER with abdominal pain and bloating. The patient woke up in the morning with decreased appetite with gradually progressing abdominal pain. She reports that the abdominal pain was bad enough to wake her up. The abdominal pain started in the upper abdomen and as a worsened became more generalized. He has been nauseated but no significant vomiting. However as the day progressed she developed persistent hiccups. When she arrived in the ER she began having emesis and retching. She was unable to tell me when she had her last bowel movement. She denies having any changes in her bowel habits. She has received her COVID vaccine. Source of information is past medical records and ER records. The patient was interviewed but had received morphine and had some and initial thought process and was somewhat of a difficult historian. Review of Systems Review of Systems: 12 systems were reviewed with pertinent positives and negatives per HPI. Except as documented in the HPI, all other systems were reviewed and are negative. However review of systems was somewhat limited as patient had received morphine prior to my evaluation in has some wondering thought processes. [facility] Past Medical History Medical History (Updated 01/29/21 @ 21:34 by Brittany Signh DO) 1st degree AV block Acquired cataract Calculus of gallbladder with cholecystitis without biliary obstruction Cholelithiases Chronic cholecystitis with calculus Diastolic dysfunction without heart failure Noted on echocardiogram March 2019 BRADLEY (dyspnea on exertion) Dyshidrotic eczema (~1996) Dyslipidemia Ectopic atrial rhythm Elevated bilirubin Essential hypertension (~03/1997) Generalized anxiety disorder GERD (gastroesophageal reflux disease) History of torn meniscus of right knee Hypersomnia Intracranial hemorrhage Obstructive sleep apnea Other specified disorders of tendon, right wrist PAT (paroxysmal atrial tachycardia) Surgical History Surgical History (Updated 01/29/21 @ 21:26 by Brittany Singh DO) H/O eye surgery (~2018) left H/O: hysterectomy (~1987) Hx laparoscopic cholecystectomy (07/2019) Hx of tonsillectomy (~1954) S/P cholecystectomy (~07/2019) S/P nasal polypectomy (~1964) S/P removal of thyroid nodule (~1990) Family History Family History Father Family history of malignant neoplasm Grandparent Family history of Parkinson's disease Social History Social History Smoking status: Never smoker Second hand tobacco smoke exposure: Yes Alcohol intake: current Alcohol use details: rarely Substance use: never Substance use type: does not use Gender identity (if verb
--- NOTE | 2021-01-29 21:26 | ADMGEN ---
This patient, Ashley Sebastian, was admitted to 2 Medical Room 257-01. Patient/family oriented to hospital policies and general routines including ID bracelet, bed and alarms, visiting hours, pain management, procedures, bathroom and other care routines, personal items, smoking policy, room service/diet, and visiting hours. Information on how to activate the Rapid Response Team has been discussed. Patient/Family are encouraged to report perceived risks to care and to ask questions if they do not understand what they are told or what they should do.
[2021-01-29] MEDS: LACTATED RINGERS 1,000 ML 100 ML IV CONT (22:15)
[2021-01-30] VITALS (7 sets, daily range): BP systolic 109–157; BP diastolic 52–79; PULSE 50–60; RESP 18; TEMP 36.5–36.9; O2SAT 95–99
[2021-01-30 05:44] LABS: Hematocrit 39.3 % (37.0-47.0); Hemoglobin 13.7 g/dL (12.0-15.0); Mean Corpuscular HGB Conc 34.9 g/dl (32-36); Mean Corpuscular Hemoglobin 30.1 pg (26-34); Mean Corpuscular Volume 86.4 fl (80-100); Mean Platelet Volume 9.5 fl (7.4-10.4); Platelet Count Result 285 k/mm3 (150-375); Red Blood Count 4.55 M/mm3 (4.2-5.4); Red Cell Distribution Width 13.6 % (11.5-14.5); White Blood Count 11.4 K/mm3 (4.5-10.0)
[2021-01-30 05:58] LABS: Lactic Acid Reflex 1.1 mmol/L (0.7-2.1)
[2021-01-30 06:00] LABS: Anion Gap 7 mmol/L (8-16); Blood Urea Nitrogen 24 mg/dL (7-17); Calcium 8.1 mg/dL (8.4-10.2); Carbon Dioxide 22 mmol/L (22-30); Chloride 102 mmol/L (98-107); Estimated CRCL calculation 53 ml/min; Estimated Glomerular Filt Rate > 60; Glucose 112 mg/dL (65-110); Potassium 4.2 mmol/L (3.4-5.0); Sodium 131 mmol/L (137-145)
[2021-01-30 07:10] LABS: Lipase 219 U/L (23-300)
[2021-01-30] MEDS: ENOXAPARIN 40 MG/0.4 ML SYRINGE SUB-Q (09:31)
[2021-01-30] MEDS: LACTATED RINGERS 1,000 ML 100 ML IV CONT ×2 (10:56→21:26)
--- NOTE | 2021-01-30 13:49 | PM.IMPN ---
Progress Note: A&P Assessment and Plan (1) Uncontrolled hypertension: Code(s): I10 - Essential (primary) hypertension Status: Acute Assessment and Plan: -blood pressure appears to be stable, p.r.n. hydralazine as needed for blood pressure systolic greater than 160. -she is NPO currently with NG tube in place, once we restart her diet and she restarts her home medications we may need to slowly add back her antihypertensives. Her heart rate is 50s, she is on Coreg at home and dose may need to be adjusted. (2) Complete small bowel obstruction: Onset Date: ~01/29/21 Code(s): K56.601 - Complete intestinal obstruction, unspecified as to cause Status: Acute Assessment and Plan: Postop day 1 laparoscopic lysis of adhesions and release of small-bowel obstruction. Surgeon is Dr. Hudson. NG tube in place. Pain regimen, nausea, fluids management by surgeon Dr. Hudson. Additional Plan Diet: NPO, NG tube to suction DVT prophylaxis: Lovenox Code status: Full code Disposition: Pending clinical course, likely home Time Spent With Patient Time with patient: 25 - 35 minutes Subjective Date/time seen: 01/30/21 13:49 Patient examined. She is in very good mood, very appreciative of surgeon and staff. She does not have any pain or any nausea. NG tube is in place to suction. Her blood pressure is very stable 120s-130s, continue p.r.n. IV hydralazine as needed for systolic blood pressure greater than 160. Patient denies fever, chills, nausea, vomiting, diarrhea, chest pain, abdominal pain. Review of Systems Review of Systems: All systems reviewed & are unremarkable except as noted in HPI and below Exam Narrative: - GENERAL: Pleasant woman in no acute distress sitting comfortably in chair. - EYES: EOMI. Anicteric. - HENT: Moist mucous membranes. NG tube to suction bilious output. - LUNGS: Clear to auscultation bilaterally, no wheezing, rhonchi, or rales. - CARDIOVASCULAR: Bradycardic rate and rhythm. No murmur. No JVD. - ABDOMEN: Soft, non-tender and non-distended. Appropriate postop changes. Hypoactive bowel sounds. - : James in place - EXTREMITIES: No edema. Peripheral pulses 2+. Non-tender. - NEUROLOGIC: No focal neurological deficits. CN II-XII grossly intact. - PSYCHIATRIC: Awake, Alert and oriented x 3. Elated mood and affect. - SKIN: No rashes or lesions. Warm. - LYMPH: No cervical lymphadenopathy. Objective Data Vital Signs Vital Signs: Vital Signs - 24 hr 01/29/21 17:00 01/29/21 19:57 01/29/21 20:05 Temperature 36.6 C Pulse Rate 52 L 77 60 Respiratory Rate 21 H 12 18 Blood Pressure 173/92 H 176/97 H 173/83 H Pulse Oximetry 99 99 99 01/29/21 20:20 01/29/21 20:25 01/29/21 20:35 Temperature Pulse Rate 59 L 61 58 L Respiratory Rate 18 18 17 Blood Pressure 163/74 H 166/73 H 150/71 H Pulse Oximetry 99 96 94 01/29/21 20:40 01/29/21 20:49 01/29/21 20:55 Temperature Pulse Rate 59 L 56 L 55 L Respiratory Rate 20 14 16 Blood Pressure 143/69 H 143/69 H 135/72 Pulse Oximetry 94 93 94 01/29/21 21:05 01/29/21 21:09 01/29/21 21:24 Temperature 36.8 C 36.9 C Pulse Rate 59 L 54 L 56 L Respiratory Rate 16 18 18 Blood Pressure 131/69 127/49 L 121/50 L Pulse Oximetry 94 96 96 01/29/21 21:54 01/29/21 22:54 01/30/21 02:54 Temperature 37.0 C 37.1 C 36.9 C Pulse Rate 57 L 57 L 60 Respiratory Rate 18 20 18 Blood Pressure 136/57 L 132/54 L 109/57 L Pulse Oximetry 96 98 96 01/30/21 06:54 01/30/21 09:31 01/30/21 09:46 Temperature 36.9 C 36.5 C Pulse Rate 60 50 L Respiratory Rate 18 18 18 Blood Pressure 116/52 L 127/53 L Pulse Oximetry 97 96 95 Intake/Output Intake/Output: Intake & Output 01/27/21 01/28/21 01/29/21 01/30/21 23:59 23:59 23:59 23:59 Intake Total 1500 100 Output Total 210 800 Balance 1290 -700 Meds/Results Medications: Active Medications Generic Name Dose Route Start Last Admin Trade Name Freq PRN Reason Stop Dose Ad
--- NOTE | 2021-01-30 20:58 | PM.PNGS ---
Progress Note: A&P Assessment and Plan (1) Complete small bowel obstruction: Onset Date: ~01/29/21 Code(s): K56.601 - Complete intestinal obstruction, unspecified as to cause Status: Acute Assessment and Plan: This is now resolving. Patient is postop day 1 after laparoscopic lysis of he had in. Encouraged her to walk in the hallway she states that she has. Denies being able to pass gas or have bowel. I explained what an ileus is encouraged her to get walk. (2) Uncontrolled hypertension: Onset Date: Unknown Code(s): I10 - Essential (primary) hypertension Status: Acute Assessment and Plan: As per planby the hospitalist (3) Postmenopausal: Code(s): Z78.0 - Asymptomatic menopausal state Status: Acute (4) Thyroid nodule: Code(s): E04.1 - Nontoxic single thyroid nodule Status: Acute (5) GERD (gastroesophageal reflux disease): Onset Date: Unknown Code(s): K21.9 - Gastro-esophageal reflux disease without esophagitis Status: Chronic Assessment and Plan: on PPI IV. Additional Plan Await return of bowel function. Time Spent With Patient Time with patient: less than 15 minutes Subjective Subjective Date/Time Seen: 01/30/21 20:58 Sitting chair when I came in the room. Nurse reports what is in the suction canister is how much has come out NG since surgery which about 300. ( not recorded on I & O). Post Op day: 1 ( Status post laparoscopic lysis of adhesions with release of small-bowel obstruction) Patient reports: no new complaints and feels better Review of Systems Constitutional: Constitutional: Reports no additional constitutional complaints ENT: Reports other (Mucous Membranes moist.) Cardiovascular: Cardiovascular: Denies dyspnea Respiratory: Respiratory: Denies pain on inspiration and Denies dyspnea Musculoskeletal: Musculoskeletal: Reports other (No calf swelling or edema) Integumentary/Breasts: Skin/Breast: Reports system reviewed and no additional complaints, except as docu Exam Const: General: cooperative, no acute distress, alert and awake Orientation/consciousness: patient oriented x3 HENMT: Mouth: Yes moist mucous membranes Neck: Neck: normal visual inspection Chest: Chest palpation & inspection: normal inspection of the chest Resp: Effort & Inspection: normal respiratory effort Auscultation: clear to auscultation bilaterally Cardio: Jugular venous distension: no JVD Rate: regular rate Rhythm: regular rhythm GI: Inspection: normal to inspection, incision ( clean cleanand dry with surgical glue in place) and other Rectal Exam: deferred Other: More tenderness at the mid left abdominal trocar/ port site and the other two. : Manual OB Exam: Deferred manual OB exam Neuro: General: patient oriented x3 and moves all extremities Speech: normal speech Extrem: General: normal exam except as noted Right lower extremity: no edema Left lower extremity: no edema Psych: Mental Status: mental status grossly normal Speech and movement: Normal speech and movement present Affect: normal affect Thought content: Yes Normal thought content present Objective Data Vital Signs Vital Signs: Vital Signs - 24 hr 01/29/21 21:05 01/29/21 21:09 01/29/21 21:24 Temperature 36.8 C 36.9 C Pulse Rate 59 L 54 L 56 L Respiratory Rate 16 18 18 Blood Pressure 131/69 127/49 L 121/50 L Pulse Oximetry 94 96 96 01/29/21 21:54 01/29/21 22:54 01/30/21 02:54 Temperature 37.0 C 37.1 C 36.9 C Pulse Rate 57 L 57 L 60 Respiratory Rate 18 20 18 Blood Pressure 136/57 L 132/54 L 109/57 L Pulse Oximetry 96 98 96 01/30/21 06:54 01/30/21 09:31 01/30/21 09:46 Temperature 36.9 C 36.5 C Pulse Rate 60 50 L Respiratory Rate 18 18 18 Blood Pressure 116/52 L 127/53 L Pulse Oximetry 97 96 95 01/30/21 14:00 01/30/21 17:40 Temperature 36.7 C 36.6 C Pulse Rate 56 L 51 L Respiratory Rate 18 18 Blood
[2021-01-31 04:00] VITALS: BP 170/69; PULSE 69; RESP 18; TEMP 36.8; O2SAT 97
[2021-01-31 06:25] LABS: Alanine Aminotransferase 15 U/L (4-35); Albumin Level 3.4 g/dL (3.5-5.1); Alkaline Phosphatase 46 U/L (38-126); Anion Gap 3 mmol/L (8-16); Aspartate Amino Transferase 33 U/L (14-36); Bilirubin,Total 2.3 mg/dL (0.2-1.3); Blood Urea Nitrogen 23 mg/dL (7-17); Calcium 8.4 mg/dL (8.4-10.2); Carbon Dioxide 25 mmol/L (22-30); Chloride 106 mmol/L (98-107); Estimated CRCL calculation 53 ml/min; Estimated Glomerular Filt Rate > 60; Glucose 77 mg/dL (65-110); Potassium 4.1 mmol/L (3.4-5.0); Sodium 134 mmol/L (137-145)
--- NOTE | 2021-01-31 07:11 | PM.IMPN ---
Progress Note: A&P Assessment and Plan (1) Uncontrolled hypertension: Onset Date: Unknown Code(s): I10 - Essential (primary) hypertension Status: Acute Assessment and Plan: -blood pressure appears to be elevated today. Her carvedilol has been kept on hold because of her NPO status. Continue p.r.n. hydralazine as needed for blood pressure systolic greater than 160. -her heart rate is in 50s and 60s. (2) Complete small bowel obstruction: Onset Date: ~01/29/21 Code(s): K56.601 - Complete intestinal obstruction, unspecified as to cause Status: Acute Assessment and Plan: Postop day 1 laparoscopic lysis of adhesions and release of small-bowel obstruction. Surgeon is Dr. Hudson. NG tube in place. Pain regimen, nausea, fluids management by surgeon Dr. Hudson. She had bowel movement and passing gas as well. Her NG tube will likely be discontinued by surgery today and may probably started clear liquid diet as well. Additional Plan Diet: Currently NPO with NG tube but probably NG tube will be discontinued today by surgery service. DVT prophylaxis: Lovenox Code status: Full code Disposition: Pending clinical course, likely home Subjective Date/time seen: 01/31/21 07:11 She had a bowel movement today. She is passing gas as well. She is still having NG tube but will likely be discontinued by surgery service today considering return of bowel function. Denied have any nausea vomiting. She does have some abdominal discomfort at surgical site. She did not use her CPAP overnight because of the NG tube. Blood pressure has been noticed to be elevated but currently she is off her usual carvedilol because of her NPO status. Review of Systems Review of Systems: All systems reviewed & are unremarkable except as noted in HPI and below Exam Narrative: - GENERAL: Pleasant woman in no acute distress sitting comfortably in chair. - LUNGS: Clear to auscultation bilaterally, no wheezing, rhonchi, or rales. - CARDIOVASCULAR: S1-S2 - ABDOMEN: Soft, non-tender and non-distended. Appropriate postop changes. Hypoactive bowel sounds. - EXTREMITIES: No edema. - NEUROLOGIC: Alert oriented x3 - PSYCHIATRIC: Awake, Alert and oriented x 3. Objective Data Vital Signs Vital Signs: Vital Signs - 24 hr 01/30/21 09:31 01/30/21 09:46 01/30/21 14:00 Temperature 36.5 C 36.7 C Pulse Rate 50 L 56 L Respiratory Rate 18 18 18 Blood Pressure 127/53 L 154/73 H Pulse Oximetry 96 95 98 01/30/21 17:40 01/30/21 22:00 01/31/21 04:00 Temperature 36.6 C 36.8 C 36.8 C Pulse Rate 51 L 53 L 69 Respiratory Rate 18 18 18 Blood Pressure 147/71 H 157/79 H 170/69 H Pulse Oximetry 99 97 97 Intake/Output Intake/Output: Intake & Output 01/28/21 01/29/21 01/30/21 01/31/21 23:59 23:59 23:59 23:59 Intake Total 1500 1200 Output Total 210 1300 1600 Balance 1290 -100 -1600 Meds/Results Medications: Active Medications Generic Name Dose Route Start Last Admin Trade Name Freq PRN Reason Stop Dose Admin Hydrocodone Bitart/Acetaminophen 1 tab 01/29/21 21:09 Hydrocodone/Acetaminophen (*Crx) 5-325 Mg Tablet PO Q6H PRN Pain Rated 4-6 Hydrocodone Bitart/Acetaminophen 1 tab 01/29/21 21:09 Hydrocodone/Acetaminophen (*Crx) 7.5-325 Mg Tablet PO Q4H PRN Pain Rated 7-10 Enoxaparin Sodium 40 mg 01/30/21 09:00 01/30/21 09:31 Enoxaparin 40 Mg/0.4 Ml Syringe SUB-Q 40 mg DAILY JAYE Administration Hydralazine HCl 10 mg 01/29/21 21:09 Hydralazine Hcl 20 Mg/Ml Vial IV PUSH Q6H PRN B P - High systolic > 160 Lactated Ringer's 1,000 mls @ 100 mls/hr 01/30/21 09:55 01/30/21 21:26 Lr - Lactated Ringers Iv IV CONT 100 mls/hr .Q10H JAYE Administration Morphine Sulfate 4 mg 01/29/21 16:43 Morphine Sulfate (*Crx) 4 Mg/Ml Inj IV PUSH Q2H PRN Pain Rated 7-10 Morphine Sulfate 2 mg 01/29/21 21:09 Morphine Sulfate (*Crx) 2 Mg/M
[2021-01-31 08:14] VITALS: RESP 18; O2SAT 96
[2021-01-31] MEDS: LACTATED RINGERS 1,000 ML 100 ML IV CONT ×2 (08:14→17:49)
[2021-01-31] MEDS: ENOXAPARIN 40 MG/0.4 ML SYRINGE SUB-Q (08:14)
[2021-01-31 10:00] VITALS: BP 175/86; PULSE 61; RESP 18; TEMP 37.1; O2SAT 95
[2021-01-31 12:06] VITALS: BMI 28.6
[2021-01-31 14:00] VITALS: BP 154/80; PULSE 62; RESP 16; TEMP 36.9; O2SAT 93
[2021-01-31 20:00] VITALS: BP 152/84; PULSE 68; RESP 16; TEMP 36.7; O2SAT 95
--- NOTE | 2021-01-31 21:06 | PM.PNGS ---
Progress Note: A&P Assessment and Plan (1) Complete small bowel obstruction: Onset Date: ~01/29/21 Code(s): K56.601 - Complete intestinal obstruction, unspecified as to cause Status: Acute Assessment and Plan: This now seems to be resolving. Patient is postop day 2 after laparoscopic lysis of adhesions. Encouraged her to walk in the hallway she states that she has not today. Now states she has able to pass gas and did have 1 bowel movement today. I explained what an ileus is encouraged her to get up and walk. My concern today is that the gastric fluid output from the NG is coffee-ground or dark reddish in color where as yesterday had been greenish. Her abdomen seems soft and she is not complain of any increased pain so of not sure why this is happening. Will start her on Protonix and also Mylanta through the NG tube in watch for another 12-24 hours. The abdomen is soft and she has got good bowel sounds so I still believe that she is still improving. (2) Uncontrolled hypertension: Onset Date: Unknown Code(s): I10 - Essential (primary) hypertension Status: Acute Assessment and Plan: As per plan by the hospitalist (3) Postmenopausal: Code(s): Z78.0 - Asymptomatic menopausal state Status: Acute (4) Thyroid nodule: Code(s): E04.1 - Nontoxic single thyroid nodule Status: Acute (5) GERD (gastroesophageal reflux disease): Onset Date: Unknown Code(s): K21.9 - Gastro-esophageal reflux disease without esophagitis Status: Chronic Assessment and Plan: on PPI IV. Additional Plan Await return of bowel function. PPI and then also add Mylanta down the NG to lower acid and soothe the stomach lining. Subjective Subjective Date/Time Seen: 01/31/21 21:06 Post Op day: 2 ( Status post laparoscopic lysis of adhesions with release of closed-loop small-bowel obstruction) Patient reports: no new complaints, feels better, flatus and bowel movement Interval history: Patient lying in bed when I came in the room tonight. She states she has been doing okay she had noticed the coffee ground and reddish appearance of her NG output but day nurses had reported that. I asked her current nurse and she had noticed this also. There has not been an apparent increase in the drainage from the NG tube but now compared to yesterday when it was greenish it is coffee ground or could dark red in color. Patient has not walked in the hallway but states she has been up to the chair once and walked to the bathroom. Review of Systems Constitutional: Constitutional: Reports as per HPI, Reports no additional constitutional complaints, Denies headache(s) and Reports malaise Eyes: Eyes: Denies loss of vision and Denies eye pain ENT: Reports Normal hearing present, Denies change in voice, Denies dizziness, Denies headache(s) and Reports other (Mucous Membranes moist.) Cardiovascular: Cardiovascular: Denies chest pain, Denies edema and Denies dyspnea Respiratory: Respiratory: Denies pain on inspiration, Denies dyspnea and Denies wheezing Gastrointestinal: Gastrointestinal: Reports abdominal pain ( Mainly across the mid abdomen with some bloating) and Reports change in bowel habits ( diarrhea while on sertraline but this has been stopped) Musculoskeletal: Musculoskeletal: Denies back pain, Denies arthralgias and Reports other (No calf swelling or edema) Integumentary/Breasts: Skin/Breast: Reports system reviewed and no additional complaints, except as docu Neurologic: Reports Normal hearing present, Denies dizziness, Denies headache(s), Denies loss of vision and Denies memory loss Psychiatric: Psychiatric: Denies memory loss and Denies panic attacks Endocrine: Endocrine: Reports no additional endocrine complaints Hematologic/Lymphatic: Hematologic/Lymphatic: Reports no additional hematologic/lymphatic complaints Allergic/Immunologic: Allergic/Immunologic: Denies
[2021-01-31] MEDS: MAG HYDROX/AL HYDROX/SIMETH 30 ML UDC PO (21:49)
[2021-01-31] MEDS: PANTOPRAZOLE SODIUM IV 40 MG VIAL IV PUSH (21:49)
[2021-02-01] VITALS (11 sets, daily range): BP systolic 124–157; BP diastolic 64–88; PULSE 54–76; RESP 14–20; TEMP 36.3–37.3; O2SAT 94–98
[2021-02-01] MEDS: MAG HYDROX/AL HYDROX/SIMETH 30 ML UDC PO ×4 (02:59→21:03)
[2021-02-01] MEDS: LACTATED RINGERS 1,000 ML 100 ML IV CONT (03:56)
[2021-02-01 05:43] LABS: Basophils Percent Auto 0.5 % (0.2-1.2); Eosinophils Absolute Auto 0.3 K/mm3 (0-0.3); Eosinophils Percent Auto 3.2 % (0-4.4); Hematocrit 37.8 % (37.0-47.0); Hemoglobin 12.1 g/dL (12.0-15.0); Immature Granulocyte Absolute 0.04 K/mm3 (0.00-0.031); Immature Granulocyte Percent A 0.5 % (0-0.5); Lymphocytes Absolute Auto 1.44 K/mm3 (0.9-3.2); Lymphocytes Percent Auto 17.2 % (18.3-44.2); Mean Corpuscular Volume 90.6 fl (80-100); Mean Platelet Volume 9.7 fl (7.4-10.4); Monocytes Absolute Auto 0.9 K/mm3 (0.1-0.6); Neutrophils Absolute Auto 5.6 K/mm3 (1.3-6.7); Neutrophils Percent Auto 67.6 % (45.5-73.1); Platelet Count Result 245 k/mm3 (150-375); Red Blood Count 4.17 M/mm3 (4.2-5.4); Red Cell Distribution Width 13.6 % (11.5-14.5); White Blood Count 8.4 K/mm3 (4.5-10.0)
[2021-02-01 05:54] LABS: Anion Gap 8 mmol/L (8-16); Blood Urea Nitrogen 17 mg/dL (7-17); Calcium 8.1 mg/dL (8.4-10.2); Carbon Dioxide 27 mmol/L (22-30); Chloride 100 mmol/L (98-107); Estimated CRCL calculation 59 ml/min; Estimated Glomerular Filt Rate > 60; Glucose 83 mg/dL (65-110); Magnesium 1.9 mg/dL (1.6-2.3); Potassium 3.8 mmol/L (3.4-5.0); Sodium 135 mmol/L (137-145)
[2021-02-01 05:59] LABS: Lactic Acid Reflex 0.9 mmol/L (0.7-2.1)
[2021-02-01] MEDS: LOSARTAN POTASSIUM 50 MG TABLET PO ×2 (09:23→16:29)
[2021-02-01] MEDS: carvediloL 6.25 MG TABLET PO ×2 (09:23→21:02)
[2021-02-01] MEDS: ENOXAPARIN 40 MG/0.4 ML SYRINGE SUB-Q (09:23)
[2021-02-01] MEDS: PANTOPRAZOLE SODIUM IV 40 MG VIAL IV PUSH (09:23)
--- NOTE | 2021-02-01 14:01 | PM.IMPN ---
Progress Note: A&P Assessment and Plan (1) Uncontrolled hypertension: Onset Date: Unknown Code(s): I10 - Essential (primary) hypertension Status: Acute Assessment and Plan: -blood pressure appears to be elevated today. Her carvedilol the wall is kept on hold because of her NPO status. Will start carvedilol at half of the dose of her baseline dose of 12.5 mg twice a day because of her bradycardia with her heart rate being in 50s and 60s. I will resume her losartan as well. Continue p.r.n. hydralazine as needed for blood pressure systolic greater than 160. Continue to monitor hemodynamics closely. (2) Complete small bowel obstruction: Onset Date: ~01/29/21 Code(s): K56.601 - Complete intestinal obstruction, unspecified as to cause Status: Acute Assessment and Plan: Postop day 3 laparoscopic lysis of adhesions and release of small-bowel obstruction. Surgeon is Dr. Hudson. NG tube has been discontinued. She is currently on clear liquid diet as per surgery. Advance diet as per surgery service. She had bowel movement and passing gas as well. Yesterday her NG tube had some coffee-ground output. She was started on pantoprazole IV which will be switched to p.o. today. Her H&H remained stable. Additional Plan Diet: Currently on clear liquid diet as per surgery. Advance diet as per surgery service. DVT prophylaxis: Lovenox Code status: Full code Continue CPAP at bedtime. Disposition: She will likely be discharged in a.m. once she is able to tolerate regular diet. Subjective Date/time seen: 02/01/21 14:01 NG tube could not be removed yesterday as the output was dark color coffee-grounds staff. She was started on pantoprazole IV twice a day by surgery service. Now NG tube has already been taken out by the surgery service. She has been started on clear liquid diet. Denied have any significant symptoms of cough shortness of breath fever chills abdominal pain nausea vomiting. She was complaining of some discomfort at the surgical site. Her blood pressure has been noticed to be elevated since her carvedilol is on hold. At the same time she is found bradycardic with her heart rate in 50s and 60s. She had a small bowel movement today. Review of Systems Review of Systems: All systems reviewed & are unremarkable except as noted in HPI and below Exam Narrative: - GENERAL: Pleasant woman in no acute distress sitting comfortably in chair. - LUNGS: Clear to auscultation bilaterally, no wheezing, rhonchi, or rales. - CARDIOVASCULAR: S1-S2 - ABDOMEN: Soft, non-tender and non-distended. Appropriate postop changes. Hypoactive bowel sounds. - EXTREMITIES: No edema. - NEUROLOGIC: Alert oriented x3 - PSYCHIATRIC: Awake, Alert and oriented x 3. Objective Data Vital Signs Vital Signs: Vital Signs - 24 hr 01/31/21 20:00 02/01/21 00:00 02/01/21 04:00 Temperature 36.7 C 36.3 C L 36.3 C L Pulse Rate 68 54 L 57 L Respiratory Rate 16 16 16 Blood Pressure 152/84 H 147/69 H 157/88 H Pulse Oximetry 95 94 94 02/01/21 09:23 02/01/21 10:00 Temperature 36.5 C Pulse Rate 64 76 Respiratory Rate 16 Blood Pressure 124/70 Pulse Oximetry 97 Intake/Output Intake/Output: Intake & Output 01/29/21 01/30/21 01/31/21 02/01/21 23:59 23:59 23:59 23:59 Intake Total 1500 1200 2000 1000 Output Total 210 1300 3250 200 Balance 1290 -100 -1250 800 Meds/Results Medications: Active Medications Generic Name Dose Route Start Last Admin Trade Name Freq PRN Reason Stop Dose Admin Hydrocodone Bitart/Acetaminophen 1 tab 01/29/21 21:09 Hydrocodone/Acetaminophen (*Crx) 5-325 Mg Tablet PO Q6H PRN Pain Rated 4-6 Hydrocodone Bitart/Acetaminophen 1 tab 01/29/21 21:09 Hydrocodone/Acetaminophen (*Crx) 7.5-325 Mg Tablet PO Q4H PRN Pain Rated 7-10 Al Hydrox/Mg Hydrox/Simethicone 30 ml 01/31/21 21:00 02/01/21 09:23 Mag Hydrox/Al Hydrox/S
[2021-02-01] MEDS: SENNA/DOCUSATE SODIUM TABLET 2 TAB PO (21:02)
[2021-02-02 00:02] VITALS: BP 142/68; PULSE 60; RESP 16; TEMP 36.1; O2SAT 97
--- NOTE | 2021-02-02 00:06 | PM.PNGS ---
Progress Note: A&P Assessment and Plan (1) Complete small bowel obstruction: Onset Date: ~01/29/21 Code(s): K56.601 - Complete intestinal obstruction, unspecified as to cause Status: Acute Assessment and Plan: This now seems to be resolving. Patient is postop day 3 after laparoscopic lysis of adhesions. Encouraged her to walk in the hallway she states that she has not yet today. Now states she has able to pass gas and did have 1 bowel movement today. felicia. Her abdomen seems soft and she is not complain of any increase The abdomen is soft and she has got good bowel sounds so I still believe that she is still improving. NG removed today. Will start clear liquid diet and allow our nurse to advance it gradually to soft. (2) Uncontrolled hypertension: Onset Date: Unknown Code(s): I10 - Essential (primary) hypertension Status: Acute Assessment and Plan: As per plan by the hospitalist (3) Postmenopausal: Code(s): Z78.0 - Asymptomatic menopausal state Status: Acute (4) Thyroid nodule: Code(s): E04.1 - Nontoxic single thyroid nodule Status: Acute (5) GERD (gastroesophageal reflux disease): Onset Date: Unknown Code(s): K21.9 - Gastro-esophageal reflux disease without esophagitis Status: Chronic Assessment and Plan: on PPI IV. Additional Plan PPI and then also Mylanta PO Subjective Subjective Date/Time Seen: 02/01/21 07:00 Post Op day: 3 Patient reports: no new complaints Interval history: Patient states that she had a small bowel movement early this a.m.. She is feeling better she does not have much pain in the abdomen. She would like to have the NG tube out. Review of Systems Constitutional: Constitutional: Reports as per HPI, Reports no additional constitutional complaints, Denies headache(s) and Reports malaise Eyes: Eyes: Denies loss of vision and Denies eye pain ENT: Reports Normal hearing present, Denies change in voice, Denies dizziness, Denies headache(s) and Reports other (Mucous Membranes moist.) Cardiovascular: Cardiovascular: Denies chest pain, Denies edema and Denies dyspnea Respiratory: Respiratory: Denies pain on inspiration, Denies dyspnea and Denies wheezing Gastrointestinal: Gastrointestinal: Reports abdominal pain ( Mainly across the mid abdomen with some bloating) and Reports change in bowel habits ( diarrhea while on sertraline but this has been stopped) Musculoskeletal: Musculoskeletal: Denies back pain, Denies arthralgias and Reports other (No calf swelling or edema) Integumentary/Breasts: Skin/Breast: Reports system reviewed and no additional complaints, except as docu Neurologic: Reports Normal hearing present, Denies dizziness, Denies headache(s), Denies loss of vision and Denies memory loss Psychiatric: Psychiatric: Denies memory loss and Denies panic attacks Endocrine: Endocrine: Reports no additional endocrine complaints Hematologic/Lymphatic: Hematologic/Lymphatic: Reports no additional hematologic/lymphatic complaints Allergic/Immunologic: Allergic/Immunologic: Denies wheezing Exam Const: General: cooperative, no acute distress, well developed, alert and awake Nutritional Appearance: well nourished Orientation/consciousness: patient oriented x3 Limitations: no limitations HENMT: Head: normal to inspection, normocephalic and atraumatic Ears: hearing grossly normal bilaterally General nose exam: Normal external nose present Face and sinus: normal facial exam Mouth: Yes Normal oral and palatal mucosa present, Yes tongue normal and Yes moist mucous membranes Eyes: General: appearance normal, both eyes and all related structures Pupils: Equal, round and reactive pupils present EOM: EOMs intact bilaterally Neck: Neck: normal visual inspection, no lymphadenopathy, trachea midline and supple Lymphatic: no lymphadenopathy noted Other: Subtle scar transversely on the an
[2021-02-02] MEDS: MAG HYDROX/AL HYDROX/SIMETH 30 ML UDC PO ×3 (02:36→14:46)
[2021-02-02 04:24] VITALS: BP 138/78; PULSE 73; RESP 18; TEMP 36.4; O2SAT 98
[2021-02-02 08:49] VITALS: PULSE 72
[2021-02-02] MEDS: ENOXAPARIN 40 MG/0.4 ML SYRINGE SUB-Q (08:49)
[2021-02-02] MEDS: carvediloL 6.25 MG TABLET PO (08:49)
[2021-02-02 08:50] VITALS: RESP 18; O2SAT 96
[2021-02-02] MEDS: PANTOPRAZOLE 40 MG TABLET PO (08:50)
[2021-02-02] MEDS: LOSARTAN POTASSIUM 50 MG TABLET PO (08:50)
[2021-02-02 09:28] VITALS: BP 122/67; PULSE 79; RESP 18; TEMP 36.3; O2SAT 95
--- NOTE | 2021-02-02 10:21 | PM.IMPN ---
Progress Note: A&P Assessment and Plan (1) Small bowel obstruction: Code(s): K56.609 - Unspecified intestinal obstruction, unspecified as to partial versus complete obstruction Status: Acute (2) Uncontrolled hypertension: Onset Date: Unknown Code(s): I10 - Essential (primary) hypertension Status: Acute (3) GERD (gastroesophageal reflux disease): Onset Date: Unknown Code(s): K21.9 - Gastro-esophageal reflux disease without esophagitis Status: Chronic (4) Obstructive sleep apnea: Code(s): G47.33 - Obstructive sleep apnea (adult) (pediatric) Status: Chronic Assessment and Plan: 1. Small-bowel obstruction - Postop day 4 laparoscopic lysis of adhesions and release of small-bowel obstruction - Resolving, had small BM this AM - Tolerating advancing PO well - NGT now discontinued 2. Hypertension - BP currently improved - Continue Carvedilol and Losartan - Continue p.r.n. hydralazine as needed for blood pressure systolic greater than 160. - Continue current BP meds on discharge with follow up with PCP 3. BLAKE Continue CPAP at bedtime. Subjective Date/time seen: 02/02/21 10:21 Reports small BM this morning. Overall feeling much better. No nausea vomiting. Hemodynamically stable. Minimal abdominal tenderness right lower quadrant. Review of Systems Review of Systems: All systems reviewed & are unremarkable except as noted in HPI and below Exam Narrative: Gen: Alert, NAD Abd: Soft, mildly tender to palpation right lower quadrant, ND Heart: RRR Lungs: CTAB Ext: No lower extremity edema Objective Data Vital Signs Vital Signs: Vital Signs - 24 hr 02/01/21 14:00 02/01/21 18:00 02/01/21 18:53 Temperature 98.1 F 99.1 F 98.1 F Pulse Rate 76 69 Respiratory Rate 16 14 Blood Pressure 148/64 H 155/86 H Pulse Oximetry 96 95 02/01/21 20:00 02/01/21 20:33 02/01/21 21:02 Temperature 98.2 F Pulse Rate 67 67 67 Respiratory Rate 17 Blood Pressure 153/88 H Pulse Oximetry 98 02/01/21 23:40 02/02/21 00:02 02/02/21 04:24 Temperature 97 F L 97.6 F Pulse Rate 57 L 60 73 Respiratory Rate 20 16 18 Blood Pressure 142/68 H 138/78 Pulse Oximetry 96 97 98 08/18/21 08:49 02/02/21 09:28 Temperature 97.4 F L Pulse Rate 72 79 Respiratory Rate 18 Blood Pressure 122/67 Pulse Oximetry 95 Intake/Output Intake/Output: Intake & Output 01/30/21 01/31/21 02/01/21 02/02/21 23:59 23:59 23:59 23:59 Intake Total 1200 2000 2020 1060 Output Total 1300 3250 200 Balance -100 -1250 1820 1060 Meds/Results Medications: Active Medications Generic Name Dose Route Start Last Admin Trade Name Freq PRN Reason Stop Dose Admin Hydrocodone Bitart/Acetaminophen 1 tab 01/29/21 21:09 Hydrocodone/Acetaminophen (*Crx) 5-325 Mg Tablet PO Q6H PRN Pain Rated 4-6 Hydrocodone Bitart/Acetaminophen 1 tab 01/29/21 21:09 Hydrocodone/Acetaminophen (*Crx) 7.5-325 Mg Tablet PO Q4H PRN Pain Rated 7-10 Al Hydrox/Mg Hydrox/Simethicone 30 ml 01/31/21 21:00 02/02/21 08:49 Mag Hydrox/Al Hydrox/Simeth 30 Ml Udc PO 30 ml Q6H JAYE Administration Carvedilol 6.25 mg 02/01/21 09:00 02/02/21 08:49 Carvedilol 6.25 Mg Tablet PO 6.25 mg Q12HR JAYE Administration Enoxaparin Sodium 40 mg 01/30/21 09:00 02/02/21 08:49 Enoxaparin 40 Mg/0.4 Ml Syringe SUB-Q 40 mg DAILY JAYE Administration Hydralazine HCl 10 mg 01/29/21 21:09 Hydralazine Hcl 20 Mg/Ml Vial IV PUSH Q6H PRN B P - High systolic > 160 Losartan Potassium 50 mg 02/01/21 09:00 02/02/21 08:50 Losartan Potassium 50 Mg Tablet PO 50 mg BID JAYE Administration Morphine Sulfate 4 mg 01/29/21 16:43 Morphine Sulfate (*Crx) 4 Mg/Ml Inj IV PUSH Q2H PRN Pain Rated 7-10 Morphine Sulfate 2 mg 01/29/21 21:09 Morphine Sulfate (*Crx) 2 Mg/Ml Inj IV PUSH Q2H PRN Pain Rated 4-6 Ondansetron HCl 4
--- NOTE | 2021-02-02 10:46 | PM.DS ---
DS: Admitting Diagnosis Admitting Diagnosis Small bowel obstruction. DS: Discharge Diagnosis Discharge Diagnosis (1) Small bowel obstruction: Code(s): K56.609 - Unspecified intestinal obstruction, unspecified as to partial versus complete obstruction Status: Acute (2) Uncontrolled hypertension: Onset Date: Unknown Code(s): I10 - Essential (primary) hypertension Status: Acute DS: Summary Hospital Course Reason for hospitalization: Small-bowel obstruction Hospital Course: this is a 70-year-old woman who presented to the ED on 01/29/2021 with abdominal pain with nausea and vomiting. CT of her abdomen and pelvis showed evidence of a closed-loop small-bowel obstruction. She was taken emergently for laparoscopic adhesiolysis and release of small-bowel obstruction by Dr. Dean Hudson. The small bowel appeared healthy and viable at the time of surgery. NG was placed in the emergency department and this was continued in place postoperatively. On postop day 1 she was stable but was not passing any flatus. On postop day 2 she did start passing flatus and had a bowel movement. NG tube was removed on postop day 3 her diet gradually advanced from clear liquids to soft diet. On 02/02/2021, postop day 4 she was tolerating a regular diet. Bowels were moving and pain was well controlled. She was ambulating in the halls and denied any nausea or vomiting. She was discharged on postop day 4. Status at Discharge Functional status at discharge: independent ambulation Overall status at discharge: patient is progressing back to baseline Time Spent with Patient Time attestation: Total time spent providing and/or coordinating discharge services: Time spent: Less than 30 minutes Exam Const: General: cooperative, comfortable and no acute distress Resp: Effort & Inspection: normal respiratory effort Auscultation: clear to auscultation bilaterally GI: Inspection: normal to inspection, non-distended and incision ( intact with glue) GI Palp: Yes Tenderness to palpation present (GI) ( Incisional) Auscultation: normal bowel sounds DS: Data Imaging Radiologist's impression: ITS Impressions Abdomen/Pelvis CT 01/29/21 15:22 IMPRESSION: 1. Closed loop small bowel obstruction with prominent edematous wall thickening of the intervening small bowel concerning for secondary ischemia. Dr. Love discussed these findings with Dr. Richmond at 3:32 PM. 2. Small amount of likely reactive ascites in the abdomen, pelvis as well as a small left inguinal hernia. 3. Cardiomegaly. 4. 0.9 x 1.2 cm nodular region along the band of discoid atelectasis/scarring in the anterior basilar left lower lobe. This could represent additional atelectasis or neoplasm. Correlate with any prior outside imaging and consider short interval follow-up chest CT at full inspiration when patient is clinically improved. 5. Small left pleural effusion. 6. A couple indeterminate 1 cm exophytic left renal lesions most likely proteinaceous/hemorrhagic cyst although differential also includes neoplasm. Recommend further evaluation with pre and postcontrast MRI or CT . Abdomen X-Ray 01/29/21 16:27 IMPRESSION: 1. Nasogastric tube in the stomach. Discharge Plan Discharge Attending physician on discharge: Reji Hudson Consulting providers: Brittany Singh Discharging Clinician: Mo Sanderson Patient Disposition: Home, Self-Care Activity: no straining Diet: regular Wound Care Instructions: incision open to air Discharge Instructions: no lifting greater than 10 lb for the next 2 weeks May shower, no bathing or soaking underwater for 2 weeks Call office for increasing abdominal pain, nausea, vomiting, or other problems with incisions If no bowel movement for greater than 48 hours, take [id number] laxative like milk of magnesia or MiraLax take OTC Tylenol or ibuprofen as needed for pain. Call office if pain is not controlled
[2021-02-02 14:00] VITALS: BP 143/85; PULSE 75; RESP 16; TEMP 36.3; O2SAT 98
== END 2021-02-02 15:30 | disposition home or self-care (01) | DRG 337 ==
LOC: ANHED 15:02 → ANH2MED 01-30 04:46
PROVIDERS: Internal Medicine Critical Care Medicine; Admitting Provider Surgery; Emergency Provider Emergency Medicine; PCP Internal Medicine; Visit Provider Surgery
PROC: 0DN84ZZ Release Small Intestine, Percutaneous Endoscopic Approach (ICD-10-PCS; CPT 49320; principal; 2021-01-29 17:30)
DX: K56.50 Intestinal adhesions [bands], unspecified as to partial versus complete obstruction (principal); E04.1 Nontoxic single thyroid nodule; I10 Essential (primary) hypertension; K21.9 Gastro-esophageal reflux disease without esophagitis; F06.4 Anxiety disorder due to known physiological condition; G47.33 Obstructive sleep apnea (adult) (pediatric); E78.5 Hyperlipidemia, unspecified; Z79.899 Other long term (current) drug therapy; Z90.79 Acquired absence of other genital organ(s); Z78.0 Asymptomatic menopausal state
CPT/HCPCS: 36415; 74176; 80048; 80053; 81001; 81025; 83605; 83690; 83735; 85025; 85027; 93005; 96361; 96374; 96375; 99285; A9270; C9113; J0131; J0330; J0360; J1100; J1170; J1650; J2250; J2270; J2370; J2405; J2704; J2710; J3010; J7030; J7120

== ENCOUNTER 2023-06-17 04:03 | Emergency (ER) | payer MEDICARE, SELFPAY ==
--- NOTE | ~2023-06-17 | XR_ITS ---
EXAMINATION: XR chest 2V DATE: 06/17/2023 06:59 INDICATION: Palpitations. Chest pressure. TECHNIQUE: Frontal and lateral views of the chest were obtained. COMPARISON: Chest 2 views 10/30/2019, CT abdomen and pelvis 01/29/2021 FINDINGS: There are airspace opacities in the lower lung zones. There are small pleural effusions. No pneumothorax. Cardiomegaly is noted. There is a chronic mass in the left superior mediastinum with r ightward shift of the trachea, likely a goiter. IMPRESSION: 1. Small pleural effusions. 2. Airspace opacities in the lower lung zones, likely atelectasis 3. Cardiomegaly. 4. Intrathoracic goiter. Reviewed, dictated and finalized at location A. MACIST APPRENTICE
[2023-06-17 04:05] VITALS: BP 198/99; PULSE 87; RESP 20; TEMP 36.2; O2SAT 99
[2023-06-17 06:30] VITALS: BP 191/97; PULSE 51; RESP 15; O2SAT 97; O2SAT 99
--- NOTE | 2023-06-17 06:36 | ECG_ITS ---
Measurements Intervals Sasser Rate: 50 P: -74 [place]: 155 QRS: 24 QRSD: 101 T: 59 QT: 444 QTc: 408 Interpretive Statements ECTOPIC ATRIAL BRADYCARDIA ANTEROSEPTAL MYOCARDIAL INFARCTION , OF INDETERMINATE AGE [40+ ms Q WAVE IN V1-V4] COMPARED TO ECG 01/29/2021 16:17:53 ECTOPIC RHYTHM NOW PRESENT Electronically Signed On 06-17-2023 15:10:27 JAVA DESIGNER by Antonino Garcia M.D.
[2023-06-17 06:47] LABS: Basophils Percent Auto 0.6 % (0.2-1.2); Eosinophils Absolute Auto 0.3 K/mm3 (0-0.3); Eosinophils Percent Auto 6.3 % (0-4.4); Hematocrit 40.8 % (37.0-47.0); Hemoglobin 13.3 g/dL (12.0-15.0); Immature Granulocyte Absolute 0.01 K/mm3 (0.00-0.031); Immature Granulocyte Percent A 0.2 % (0-0.5); Lymphocytes Absolute Auto 0.85 K/mm3 (0.9-3.2); Lymphocytes Percent Auto 16.7 % (18.3-44.2); Mean Corpuscular HGB Conc 32.6 g/dl (32-36); Mean Corpuscular Hemoglobin 29.6 pg (26-34); Mean Corpuscular Volume 90.7 fl (80-100); Mean Platelet Volume 9.2 fl (7.4-10.4); Monocytes Absolute Auto 0.6 K/mm3 (0.1-0.6); Neutrophils Absolute Auto 3.3 K/mm3 (1.3-6.7); Neutrophils Percent Auto 65.2 % (45.5-73.1); Platelet Count Result 281 k/mm3 (150-375); Red Cell Distribution Width 13.8 % (11.5-14.5); White Blood Count 5.1 K/mm3 (4.5-10.0)
[2023-06-17 06:57] LABS: Prothrombin Time 13.9 Seconds (11.1-14.7)
[2023-06-17 06:58] LABS: Alanine Aminotransferase 17 U/L (6-35); Albumin Level 3.9 g/dL (3.5-5.1); Alkaline Phosphatase 52 U/L (38-126); Anion Gap 7 mmol/L (8-16); Aspartate Amino Transferase 33 U/L (14-36); Bilirubin,Total 1.3 mg/dL (0.2-1.3); Blood Urea Nitrogen 25 mg/dL (7-17); Calcium 8.6 mg/dL (8.4-10.2); Carbon Dioxide 24 mmol/L (22-30); Chloride 106 mmol/L (98-107); Estimated CRCL calculation 50 ml/min; Estimated Glomerular Filt Rate > 60; Glucose 116 mg/dL (65-110); Lipase 166 U/L (23-300); Partial Thromboplastin Time 30.5 SECONDS (22.3-36.8); Potassium 4.1 mmol/L (3.4-5.0); Sodium 137 mmol/L (137-145)
[2023-06-17 07:09] LABS: Troponin I < 0.012 ng/mL (0.000-0.034)
[2023-06-17 07:11] VITALS: BP 190/94; PULSE 50; RESP 16; O2SAT 97
--- NOTE | 2023-06-17 07:12 | PC.NURSE ---
Report given to JOSE MIGUEL Jacobs at this time.
--- NOTE | 2023-06-17 07:16 | ED.GENADULT ---
HPI - General Adult General Chief complaint: Unspecified Stated complaint: dry mouth, unable to sleep, feeling off Time Seen by Provider: 06/17/23 06:56 History of Present Illness HPI narrative: 72-year-old female presenting to the emergency department for evaluation of not feeling well. Patient states that she did fall asleep on the couch and when she woke up to go to bed that she felt she was having a rapid heart rate. Patient states she waited for it to come down and felt that was still active so she presented to the emergency department. Patient states that while she is awaiting room she began to feel improved. On initial evaluation patient states that she feels back to her baseline. Patient denies any rapid heart rate sensation. Patient denies any palpitations. Patient denies any chest pain shortness breath nausea vomiting or diarrhea. Related Data Home Medications Medication Instructions Recorded Confirmed cholecalciferol (vitamin D3) 50 50 mcg PO DAILY 11/21/20 10/14/21 mcg (2,000 unit) tablet multivitamin 1 tablet PO DAILY 03/01/21 10/14/21 Allergies Allergy/AdvReac Type Severity Reaction Status Date / Time anise oil Allergy Severe Wheezing Verified 06/17/23 04:09 atenolol Allergy Intermediate Dyspnea / Verified 06/17/23 04:09 SOB iodine Allergy Intermediate Itching Verified 06/17/23 04:09 Penicillins Allergy Unknown Unknown Verified 06/17/23 04:09 - A CHILD sertraline [From Zoloft] AdvReac Intermediate Diarrhea Verified 06/17/23 04:09 amlodipine AdvReac Mild forgetfulln Verified 06/17/23 04:09 ess amoxicillin [From Augmentin] AdvReac Unknown Unknown Verified 06/17/23 04:09 clavulanic acid AdvReac Unknown Unknown Verified 06/17/23 04:09 [From Augmentin] fennel Allergy Severe Difficulty Uncoded 10/14/21 10:55 Breathing Review of Systems Review of Systems: All systems reviewed & are unremarkable except as noted in HPI and below PMFSH Past Medical History Medical History (Updated 06/17/23 @ 08:45 by Joseph Salinas MD) 1st degree AV block Acquired cataract Calculus of gallbladder with cholecystitis without biliary obstruction Cholelithiases Chronic cholecystitis with calculus Diastolic dysfunction without heart failure Noted on echocardiogram March 2019 BR[place]LEY (dyspnea on exertion) Dyshidrotic eczema (~1996) Dyslipidemia Ectopic atrial rhythm Elevated bilirubin Essential hypertension (~03/1997) Generalized anxiety disorder GERD (gastroesophageal reflux disease) (Unknown) History of torn meniscus of right knee Hypersomnia Intracranial hemorrhage Malignant essential hypertension Obstructive sleep apnea Other specified disorders of tendon, right wrist PAT (paroxysmal atrial tachycardia) Uncontrolled hypertension Uncontrolled hypertension (Unknown) Surgical History Surgical History H/O eye surgery (~2018) left H/O: hysterectomy (~1987) History of laparoscopy Operative laparoscopy with lysis of adhesions and release of small-bowel obstruction 01/29/21 Hx laparoscopic cholecystectomy (07/2019) Hx of tonsillectomy (~1954) S/P cholecystectomy (~07/2019) S/P nasal polypectomy (~1964) S/P removal of thyroid nodule (~1990) Family History Family History Father Family history of malignant neoplasm Grandparent Family history of Parkinson's disease Social History Social History Smoking status: Never smoker Second hand tobacco smoke exposure: Yes (long time ago ) Alcohol intake: never Alcohol use details: rarely Substance use: never Substance use type: does not use Gender identity (if verbalized by the patient): Female Spiritual care concerns: No Agree to blood products: Yes Exam Narrative: APPEARANCE: Well appearing, no pain, no distress, well-nourished. HEAD: normocephalic,
[2023-06-17 07:39] VITALS: PULSE 53
[2023-06-17] MEDS: carvediloL 12.5 MG TABLET PO (07:39)
[2023-06-17] MEDS: hydrALAZINE HCL 20 MG/ML VIAL 10 MG IV PUSH (07:40)
[2023-06-17] MEDS: hydrALAZINE HCL 50 MG TABLET PO (07:40)
[2023-06-17 08:20] VITALS: BP 110/62; PULSE 51; RESP 17; O2SAT 95
[2023-06-17 09:12] VITALS: BP 117/64; PULSE 55; RESP 19; O2SAT 96
== END 2023-06-17 08:55 | disposition home or self-care (01) ==
PROVIDERS: Emergency Medicine; Emergency Provider Emergency Medicine
DX: R00.2 Palpitations (principal); R00.1 Bradycardia, unspecified; I10 Essential (primary) hypertension; G47.33 Obstructive sleep apnea (adult) (pediatric); K21.9 Gastro-esophageal reflux disease without esophagitis; F41.9 Anxiety disorder, unspecified; Z90.710 Acquired absence of both cervix and uterus; Z90.49 Acquired absence of other specified parts of digestive tract; E04.8 Other specified nontoxic goiter; I51.7 Cardiomegaly; E78.5 Hyperlipidemia, unspecified; R94.31 Abnormal electrocardiogram [ECG] [EKG]
CPT/HCPCS: 36415; 71046; 80053; 83690; 84484; 85025; 85610; 85730; 93005; 96374; 99284; A9270; J0360

== ENCOUNTER 2024-09-12 23:23 | Emergency (ER) | payer MEDICARE, SELFPAY ==
[2024-09-12 23:24] VITALS: BP 145/75; PULSE 51; RESP 18; TEMP 36.4; O2SAT 98
--- OUTSIDE RECORDS SUMMARY | 2024-09-12 23:25 | XMS_ITS ---
Author Organization [facility] Address [address] [place] [address] Care Team Providers Care Coiler Operator Name Role Phone Devon Collado MD Primary Care Provider [phone] Júnior Blevins MD Unavailable Timothy Lloyd MD Unavailable [phone] Vinnie Mehta MD Unavailable [phone] Lencho Sheets MD Unavailable [phone] Active Problems Problem Noted Date Diagnosed Date Encounter for Medicare annual wellness exam 08/2024 Assessment & Plan (07/21/2024 10:33 AM SITE SAFETY REPRESENTATIVE): A(n) yearly Medicare Annual Wellness Visit has been performed today. Ashley Sebastian is not up to date on screening tests. She is in need of DEXA, Cholesterol screening, and Hepatitis B screening. She is not up to date on needed preventative vaccinations; She is in need of Tdap/Td vaccination(s). We discussed healthy lifestyle habits, educational material has been given. Medications reviewed, changes documented as per the medical record and discussed with patient along with risks vs benefits. Return in 6 months Primary osteoarthritis of left knee 01/16/2024 Carpal tunnel syndrome of left wrist 01/16/2024 SVT (supraventricular tachycardia) 07/18/2023 Palpitations 06/27/2023 S/P bilateral inguinal hernia repair 01/16/2023 Encounter for medical examination to establish c are 07/13/2022 Assessment & Plan (07/13/2022 3:06 PM SITE SAFETY REPRESENTATIVE): A(n) initial well visit to establish care has been performed today. Ashley Sebastian is not up to date on screening tests. She is in need of DEXA, Breast cancer screening, Hepatitis C screening, Colon cancer screening and Cholesterol screening. She is not up to date on needed preventative vaccinations; She is in need of Covid-19 (booster). We discussed healthy lifestyle habits, educational material has been given. Medications reviewed, changes documented as per the medical record and discussed with patient along with risks vs benefits. Recommended a trial of probiotics (e.g. 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 Past Treatment and Therapy Plans No past plan information found. Lifetime Dose Tracking * Chemical Lifetime Dose Automatic Entry Manual Entr y DLP 1,160 mGycm 1,160 mGycm 0 mGycm Resolved Problems Problem Noted Date Diagnosed Date Resolved Date Left inguinal hernia 11/07/2022 023 Overview (11/07/2022): Likely inguinal hernia present, we will refer out to general surgeon for evaluation Assessment & Plan (11/07/2022 10:48 AM CDT): The patient has a symptomatic left inguinal hernia. We will set her up for repair. We have discussed doing this via a minimally invasive approach and have talked about the need for mesh implantation. We have discussed postoperative restrictions. We have discussed obtaining a truss prior to surgery to try and limit symptoms and prevent incarceration until surgery can be performed. She is in understanding of the plan.
--- OUTSIDE RECORDS SUMMARY | 2024-09-12 23:25 | XMS_ITS | Clinical Summary ---
Author Organization [facility] Address [address] [place] [address] Care Team Providers Care Oracle Obiee Developer Name Role Phone Devon Collado MD Primary Care Provider [phone] Júnior Blevins MD Unavailable Timothy Lloyd MD Unavailable [phone] Vinnie Mehta MD Unavailable Lencho Sheets MD Unavailable [phone] Allergies Active Allergy Reactions Criticality Noted Date Comments Amlodipine Other (See comments) Low 09/27/2019 Altered mental status, forgetfulness Atenolol Shortness of breath High 09/27/2019 Per Donis Vincent MD - unk specifics of SOB as related to atenolol however patient takes carvedilol as a home med. Ok to give carvedilol as well as labetalol as needed with stated allergy. Kishore Garza RPh 09/27/2019. Venom-Honey Bee Other (See comments) Low 10/21/2018 Feels like face is on fire. Fennel Other (See comments) Low 10/21/2018 Difficulty breathing, slow breaths Iodine Other (See comments) Low 09/27/2019 Blisters when I was a child Penicillins Unknown 10/03/2018 As a child. Medications multivit,Ca,iro w-IJ-efnjis-lut [phone] mz-sck-ily-mcg tabletIndicatio ns:supplement Take 1 tablet by mouth daily with breakfast Active cholecalciferol (VITAMIN D-3) 400 unit capsule Active loratadine (CLARITIN) 10 mg tabletIndicatio ns:Allergic Rhinitis,Sneezi ng Take 1 tablet (10 mg total) by mouth daily as needed for allergies 30 tablet 2 3 Active calcium carbonate-vitam in D3 1500 mg (600 mg elemental) -200 units per tablet Take 1 tablet by mouth daily Active carvediloL (COREG) 12.5 mg tablet Take 1 tablet (12.5 mg total) by mouth every 12 (twelve) hours 180 tablet 3 4 Active NAPROXEN ORAL Take by mouth Ac tive losartan (COZAAR) 50 mg tablet Take 1 tablet (50 mg total) by mouth 2 (two) times a day 180 tablet 1 4 Active levothyroxine (SYNTHROID) 50 mcg tablet TAKE ONE TABLET BY MOUTH CLUTCH OPERATOR BEFORE BREAKFAST 100 tablet 5 Active hydrALAZINE (APRESOLINE) 50 mg tabletIndicatio ns:hypertension Take 1 tablet (50 mg total) by mouth 3 (three) times a day 270 tablet 3 5 07/09/19 26 Active Active Problems Problem Noted Date Diagnosed Date Encounter for Medicare annual wellness exam 08/2024 Assessment & Plan (07/21/2024 10:33 AM IT BUSINESS PROCESS ARCHITECT): A(n) yearly Medicare Annual Wellness Visit has [...] 07/13/2022 Assessment & Plan (07/13/2022 3:06 PM IT BUSINESS PROCESS ARCHITECT): A(n) initial well visit to establish care [...] (10/21/2018): Added automatically from request for surgery [id number] Hypertension Junctional rhythm Hypothyroidism Overview (07/13/2022): acquired Resolved Problems Problem Noted Date Diagnosed Date [...] She is in understanding of the plan. Encounters Date Type Department Care Team Description 07/28/2024 ACO Quality [facility] Accountable Care Organization [address] [place] [address] Ciarra Navarrete MA 07/21/2024 10:00 AM IT BUSINESS PROCESS ARCHITECT Office Visit [facility] Primary Care at [address] [address] Devon Collado MD Encounter for Medicare annual wellness exam (Primary Dx); Primary hypertension; Acquired hypothyroidism; Vitamin D insufficiency; Colon cancer screening 07/15/2024 2:45 PM IT BUSINESS PROCESS ARCHITECT Lab [facility] Out[facility] Lab at [address] [address] Hypertension (Primary Dx); Hypothyroidism 07/15/2024 10:25 AM IT BUSINESS PROCESS ARCHITECT - 07/15/2024 11:59 PM IT BUSINESS PROCESS ARCHITECT [place] [address] Primary hypertension; Acquired hypothyroidism Discharge Disposition: Discharge to home or self care from Last 3 Months Immunizations Immunization Administration Dates Next Due Influenza, Quadrivalent, Spl it, Preservative Free, Intramuscular 05/23/2022 Influenza, Trivalent, Adjuva nted, Intramuscular 04/03/2024 Influenza, Trivalent, High D ose, Split, Preservative Free, Intramuscular 04/08/2019,03/27/2018,03/26/2018,04/08,04/16/2016,04/15/2014 Influenza, Trivalent, IM (MDV) 06/18/2017 Influenza, Unspecified 06/26/2023(Deferred: Tamiko ent Refused) Pneumococcal Conjugate PCV 13 04/08/2017 Pneumococcal Conjugate Pcv20 09/18/2022 Pneumococcal Polysaccharide PPV23 2017,03/26/2018,06/18/2017,06/18 RSV Vaccine, Pref, Recombina nt, Subunit, Adjuvanted, PF, IM (Arexvy) 12/07/2023 TD Preservative Free 05/27/1997 ZOSTER Recombinant 12/07/2023,06/14/2023 Surgical History Surgery Date Site/Laterality Comments THYROID LOBECTOMY 06/18/1989 - 06/17/1990 HYSTERECTOMY 06/18/1991 - 06/17/1992 for polyps EYELID CARCINOMA EXCISION 10/25/2018 Left Left lower eyelid reconstruction with lateral canthal advancement flap. 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 Hypothyroidism acquired Hypertension Supraventricular premature beats 07/13/2022 Cavernous malformation 12/18/2019 Sleep apnea Left inguinal hernia 11/07/2022 Likely ingu inal hernia present, we will refer out to general surgeon for evaluation Family History Medical History Relation Name Comments Lung cancer Father Parkinsonism Maternal Grandfather Arthritis Maternal Grandmother [place]dt Heart attack Mother Rheumatic fever Mother Dementia Paternal Grandfather late 80 's No Known Problems Paternal Grandmother Gout Sister Christina Obesity Sister Christina supermorbidly Relation Name Status Comments Father Maternal Grandfather Maternal Grandmother [place]merfeldt Mother (Age 66) Paternal Grandfather Paternal Grandmother Sister Christina Alive Social History Tobacco Use Types Packs/Day Years Used Date Smoking Tobacco: Never Smokeless Tobacco: Never Tobacco Cessation:Counseling Given: Not Answered Alcohol Use Standard Drinks/Week Comments Yes 0 (1 standard drink = 0.6 oz pur e alcohol) rare AUDIT-C Answer Date Recorded Q1: How often do you have a drink containing alc ohol? Monthly or less 07/18/2023 Q2: How many drinks containi ng alcohol do you have on a typical day when you are drinking? 1 or 2 07/18/2023 Q3: How often do you have si x or more drinks on one occasion? Never 07/18/2023 PHQ-2 Answer Date Recorded PHQ-2 Total Score (If total score is 3 or more points, staff should administer the PHQ-9) 0 07/21/2024 Personal Safety Answer Date Recorded Have you ever been in or are you currently in a harmful physical or emotional relationship or is someone making you feel afraid or unsafe? Denies 01/05/2023 Comments No Sex and Gender Information Value Date Recorded Sex Assigned at Not on file Legal Sex Female 12:56 AM IT BUSINESS PROCESS ARCHITECT Gender Identity Not on file Sexual Orientation Not on file Obstetrics History Last Filed Vital Signs Vital Sign Reading Time Taken Comments Blood Pressure 138/84 07/21/2024 10:13 AM IT BUSINESS PROCESS ARCHITECT Pulse 57 07/21/2024 10:13 AM IT BUSINESS PROCESS ARCHITECT Temperature 35.9 C (96.7 F) 07/21/2024 10:13 AM IT BUSINESS PROCESS ARCHITECT Respiratory Rate 18 07/21/2024 10:13 AM IT BUSINESS PROCESS ARCHITECT Oxygen Saturation 97% 07/21/2024 10:13 AM IT BUSINESS PROCESS ARCHITECT Inhaled Oxygen Concentration - - Weight 73.9 kg (163 lb) 07/21/2024 10:13 AM IT BUSINESS PROCESS ARCHITECT Height 167.6 cm (5' 6 ) 07/21/2024 10:13 AM IT BUSINESS PROCESS ARCHITECT Body Mass Index 26.31 07/21/2024 10:13 AM IT BUSINESS PROCESS ARCHITECT Plan of Treatment Health Maintenance Due Date Last Done Comments Colon Cancer Screening-Colonoscopy 1950 Osteoporosis Screening-Bone Density Scan 1950 Hepatitis B Screening 1966 DTaP/Tdap/Td Vaccine (1 - Tdap) 05/28/1997 7 Covid-19 Vaccine (2023-2 5 season) 2024 04/03/2024, 10/20/2021, 06/06/2021, Additional history exists Depression Screening 07/21/2025 07/21/2024, 01/16/2024, 07/18/2023, Additional history exists Fall Risk Assessment 07/21/2025 07/21/2024, 07/18/2023, 01/06/2023, Additional history exists Well Visit 65+ 07/21/2025 07/21/2024, 07/13/2022 Pneumococcal vaccine 65+ Completed 023, 03/27/2018, 03/26/2018, Additional history exists Hepatitis C Screening Completed 07/18/2023 Zoster Vaccine Completed 12/07/2023, 06/14/2023 Influenza Vaccine Completed 04/03/2024, , 04/08/2019, Additional history exists Medical Devices Implanted Type Area Outside Sales Inspector Device Identifier Shelf Expiration Date Model / Serial / Lot [employer]/C R Bard Mesh Surgical Mid Anatomical Synthetic Patch 3dmax 4x6in [id number] - [id number] Implanted:Qty: 1 on 01/05/2023 by Donis Dewey MD at [facility] Right: Inguinal [employer]/C R Bard 08/15/2027 [id number] / / [id number] [employer]/C R Bard Bard 3dmax 6x4in Seal Edge Groin Left Large 3d Curve Contour Mesh [id number] - [id number] Implanted:Qty: 1 on 01/05/2023 by Donis Dewey MD at [facility] Left: Inguinal [employer]/C R Bard 10/13/2025 [id number] / / [id number] Procedures Procedure Name Priority Date/Time Associated Diagnosis Comments EGFR Routine 07/15/2024 2:43 PM IT BUSINESS PROCESS ARCHITECT Primary hypertension DIFFERENTIAL AUTO Routine 07/15/2024 2:4 3 PM IT BUSINESS PROCESS ARCHITECT Primary hypertension THYROID FUNCTION CASCADE Routine 07/15/2024 2:43 PM IT BUSINESS PROCESS ARCHITECT Acquired hypothyroidism CBC WITH AUTO DIFFERENTIAL Routine 07/15/2024 2:43 PM IT BUSINESS PROCESS ARCHITECT Primary hypertension COMPREHENSIVE METABOLIC PANEL Routine 07/15/2024 2:43 PM IT BUSINESS PROCESS ARCHITECT Primary hypertension LIPID PANEL Routine 07/15/2024 2:43 PM IT BUSINESS PROCESS ARCHITECT Primary hypertension HEPATITIS C ANTIBODY Routine 07/18/2023 10:27 AM IT BUSINESS PROCESS ARCHITECT Encounter for hepatitis C screening test for low risk patient from Last 3 Months or Most Recently Relevant to Health Maintenance Results * eGFR (07/15/2024 2:43 PM IT BUSINESS PROCESS ARCHITECT) eGFR 63 >=60 mL/min/1. 73 m2 Comment: Interpretive Data Reference Interval Normal >/= 90 mL/min/1.73m2 Mildly decreased* 60 - 89 mL/min/1.73m2 Mildly to moderately decreased 45 - 59 mL/min/1.73m2 Moderately to severely decreased 30 - 44 mL/min/1.73m2 Severely decreased 15 - 29 mL/min/1.73m2 Kidney Failure < 15 mL/min/1.73m2 *Relative to young adult level Estimated glomerular filtration rate is determined by the 2020 CKD-EPI equation recommended by the National Kidney Foundation (A Unifying Approach to GFR Estimation: Recommendations of the NKF-ASK Task Force on Reassessing the Inclusion of Race in Diagnosing Kidney Disease, JASN 2020). The CKD-EPI equation should not be used for patients with unstable renal function and has not been validated in children and those over 70. Current interpretive data was last reviewed 2021. Blood 07/15/2024 2:43 PM IT BUSINESS PROCESS ARCHITECT 07/15/2024 8:40 PM IT BUSINESS PROCESS ARCHITECT us Devon Collado MD LAB BLOOD ORDERABLES Final Result Performing Organization Address City/State/ZIP Co ut Phone Number [facility] [address] [address] Department [place] [address] * Differential, auto (07/15/2024 2:43 PM IT BUSINESS PROCESS ARCHITECT) Neutrophil abs 2.7 1.5 - 6.5 K/cumm Imm gran abs 0.0 0.0 - 0.1 K/cumm [facility] Lymphocyte abs 2.2 0.8 - 3.3 K/cumm [facility] Monocyte abs 0.6 0.2 - 0.8 K/cumm [facility] Eosinophil abs 0.3 0.0 - 0.5 K/cumm [facility] Basophil abs 0.0 0.0 - 0.1 K/cumm [facility] Neutrophil pct 46.3 % [facility] Comment: Interpretive Data Percent cell count reference ranges are not reported, since discordance with absolute values may lead to misinterpretation of CBC data. Current Interpretive Data was last revised on 2017. Imm gran pct 0.3 % [facility] Comment: Interpretive Data Percent cell count reference ranges are not reported, since discordance with absolute values may lead to misinterpretation of CBC data. Current Interpretive Data was last revised on 2017. Lymphocyte pct 37.0 % [facility] Comment: Interpretive Data Percent cell count reference ranges are not reported, since discordance with absolute values may lead to misinterpretation of CBC data. Current Interpretive Data was last revised on 2017. Monocyte pct 10.6 % [facility] Comment: Interpretive Data Percent cell count reference ranges are not reported, since discordance with absolute values may lead to misinterpretation of CBC data. Current Interpretive Data was last revised on 2017. Eosinophil pct 5.1 % [facility] Comment: Interpretive Data Percent cell count reference ranges are not reported, since discordance with absolute values may lead to misinterpretation of CBC data. Current Interpretive Data was last revised on 2017. Basophil pct 0.7 % [facility] Comment: Interpretive Data Percent cell count reference ranges are not reported, since discordance with absolute values may lead to misinterpretation of CBC data. Current Interpretive Data was last revised on 2017. Blood 07/15/2024 2:43 PM IT BUSINESS PROCESS ARCHITECT 07/15/2024 8:26 PM IT BUSINESS PROCESS ARCHITECT Devon Collado MD LAB BLOOD ORDERABLES Final Result Performing Organization Address City/[facility]/ZIP Co de Phone Number DARADARELL SAMAYOA [address] [address] [place] [address] * Thyroid Function Steele (07/15/2024 2:43 PM IT BUSINESS PROCESS ARCHITECT) Pathologist [facility] TSH 0.36 0.30 - 4.20 mcIUnit/mL Blood 07/15/2024 2:43 PM IT BUSINESS PROCESS ARCHITECT 07/15/2024 8:26 PM IT BUSINESS PROCESS ARCHITECT Devon Collado MD LAB BLOOD ORDERABLES Final Result Performing Organization Address City/[facility] Co de Phone Number JOLLY SAMAYOA [address] [address] [employer] [place] [address] * (ABNORMAL) CBC with auto differential (07/15/2024 2:43 PM IT BUSINESS PROCESS ARCHITECT) WBC 5.9 3.8 - 9.9 K/cumm Hgb 13.2 11.9 - 15.5 g/dL [facility] Hct 41.0 35.6 - 45.5 % [facility] Plt 325 150 - 400 K/cumm [facility] MPV 9.9 9.1 - 12.3 fL [facility] RBC 4.48 3.90 - 5.20 M/cumm [facility] MCV 91.5 81.3 - 96.4 fL [facility] MCH 29.5 27.1 - 33.3 pg [facility] MCHC 32.2(L) 32.3 - 35.7 g/dL [facility] RDW CV 13.1 11.1 - 14.9 % JOLLY RDW SD 44.3 35.7 - 48.1 fL [facility] NRBC abs 0.00 0.00 - 0.01 K/cumm [facility] Blood 07/15/2024 2:43 PM IT BUSINESS PROCESS ARCHITECT 07/15/2024 8:26 PM IT BUSINESS PROCESS ARCHITECT Devon Collado MD LAB BLOOD ORDERABLES Final Result JOLLY [address] [address] Department [place] [address] * Lipid panel (07/15/2024 2:43 PM IT BUSINESS PROCESS ARCHITECT) Cholesterol 154 30 - 199 mg/dL Comment: Interpretive Data Ages < or = 19 years Acceptable: <170 mg/dL Borderline high: 170-199 mg/dL High: >or= 200 mg/dL Ages > or = 20 years Desirable: <200 mg/dL Borderline high: 200-239 mg/dL High: >or= 240 mg/dL Literature References: 1. Expert Panel on Integrated Guidelines for Cardiovascular Health and Risk Reduction in Children and Adolescents. Pediatrics 2011;128:S213 2. NCEP Expert Panel. Circulation 2004;110:227 Current Interpretive Data was last revised on 2018. Triglycerides 146 <=149 mg/dL JOLLY Comment: Interpretive Data Ages < or = 9 years Acceptable: <75 mg/dL Borderline high: 75-99 mg/dL High: >or= 100 mg/dL Ages 10 to 20 years Acceptable: <90 mg/dL Borderline high: 90-129 mg/dL High: >or= 130 mg/dL Ages > or = 20 years Desirable: <150 mg/dL Borderline high: 150-199 mg/dL High: 200-499 mg/dL Very high: >or= 499 mg/dL Literature References: 1. Expert Panel on Integrated Guidelines for Cardiovascular Health and Risk Reduction in Children and Adolescents. Pediatrics 2011;128:S213 2. NCEP Expert Panel. Circulation 2004;110:227 Current Interpretive Data was last revised on 2018. HDL 51 >=40 mg/dL JOLLY Comment: Interpretive Data Ages < or = 19 years Acceptable: >45 mg/dL Borderline low: 40-45 mg/dL Low: <40 mg/dL Ages > or = 20 years Desirable: >or= 60 mg/dL Low: <40 mg/dL Literature References: 1. Expert Panel on Integrated Guidelines for Cardiovascular Health and Risk Reduction in Children and Adolescents. Pediatrics 2011;128:S213 2. NCEP Expert Panel. Circulation 2004;110:227 Current Interpretive Data was last revised on 2018. LDL, calculated 78 <=129 mg/dL JOLLY SAMAYOA Comment: Interpretive Data Ages < or = 19 years Acceptable: <110 mg/dL Borderline high: 110-129 mg/dL High: >or= 130 mg/dL Ages > or = 20 years Optimal: <100 mg/dL Near optimal: 100-129 mg/dL Borderline high: 130-159 mg/dL High: >160 mg/dL Calculated using the Justice LDL-C estimating equation. This equation was implemented on 2024. Prior to this date LDL-C was estimated using the Friedewald equation. Literature References: 1. Expert Panel on Integrated Guidelines for Cardiovascular Health and Risk Reduction in Children and Adolescents. Pediatrics 2011;128:S213 2. NCEP Expert Panel. Circulation 2004;110:227 3. Justice Aguirre et al. SUGEY Cardiol. 2020 October 16;5(5):540-548. doi: 10.1001/jamacardio.2020.0013 Current Interpretive Data was last revised on 2024. Non-HDL Cholesterol 103 mg/dL JOLLY SAMAYOA Comment: Interpretive Data Ages < or = 19 years Acceptable: <120 mg/dL Borderline high: 120-144 mg/dL High: >145 mg/dL Ages > or = 20 years When triglycerides are >200 mg/dL, Non-HDL cholesterol is a secondary target of therapy with treatment goals that are 30 mg/dL greater than the LDL cholesterol target. Literature References: 1. Expert Panel on Integrated Guidelines for Cardiovascular Health and Risk Reduction in Children and Adolescents. Pediatrics 2011;128:S213 2. NCEP Expert Panel. Circulation 2004;110:227 Current Interpretive Data was last revised on 2018. Chol/HDL ratio 3 JOLLY Blood 07/15/2024 2:43 PM IT BUSINESS PROCESS ARCHITECT 07/15/2024 8:26 PM IT BUSINESS PROCESS ARCHITECT Devon Collado MD LAB BLOOD ORDERABLES Final Result Performing Organization Address City/State/[facility] [place] [address] [address] Department [place] [address] * Comprehensive metabolic panel (07/15/2024 2:43 PM IT BUSINESS PROCESS ARCHITECT) Sodium 139 135 - 145 mmol/L Potassium, pl 4.4 3.3 - 4.9 mmol/L [facility] Chloride 102 97 - 110 mmol/L [facility] CO2 26 22 - 32 mmol/L [facility] Anion gap 11 2 - 15 mmol/L [facility] BUN 19 6 - 25 mg/dL [facility] Creatinine 0.94 0.60 - 1.10 mg/dL [facility] Glucose 99 70 - 199 mg/dL [facility] Comment: Interpretive Data Fasting glucose >/= 126 mg/dl is diagnostic for diabetes. Fasting is defined as no caloric intake for at least 8 hours. Fasting glucose between 100 mg/dl to 125 mg/dl is diagnostic of prediabetes. In a patient with classic symptoms of hyperglycemia or hyperglycemic crisis, a random glucose >/= 200 mg/dl is diagnostic for diabetes. In the absence of unequivocal hyperglycemia, results should be confirmed by repeat testing. The classification and Diagnosis of Diabetes Diabetes Care 2021; 46: S19-S40. Current interpretive data was last revised 2022. Calcium 8.8 8.5 - 10.3 mg/dL [facility] Bilirubin, total 0.7 0.1 - 1.2 mg/dL [facility] Protein, pl 6.6 6.5 - 8.5 g/dL [facility] Albumin 3.9 3.5 - 5.0 g/dL [facility] Alk phos 63 40 - 130 Units/L [facility] ALT 11 7 - 45 Units/L [facility] AST 28 10 - 45 Units/L [facility] Blood 07/15/2024 2:43 PM IT BUSINESS PROCESS ARCHITECT 07/15/2024 8:26 PM IT BUSINESS PROCESS ARCHITECT Devon Collado MD LAB BLOOD ORDERABLES Final Result Performing Organization Address City/[facility] Co de Phone Number JOLLY SAMAYOA [address] Department [place] [address] * Hepatitis C antibody Blood (07/18/2023 10:27 AM IT BUSINESS PROCESS ARCHITECT) Hep C Ab Nonreactive Nonreactive [facility]LLY SAMAYOA Comment: Interpretive Data Nonreactive: Antibodies to HCV not detected. Does NOT exclude the possibility of recent exposure to HCV. Equivocal: Equivocal for HCV antibodies. Supplemental molecular testing will be automatically performed to determine infection status in accordance with current CDC screening recommendations. Reactive: Positive for HCV antibodies. This may represent current or past HCV infection. Supplemental molecular testing will be automatically performed to determine current infection status in accordance with current CDC screening recommendations. Interpretive data was last revised on 2019. Blood 07/18/2023 10:2 7 AM IT BUSINESS PROCESS ARCHITECT 07/18/2023 2:17 PM IT BUSINESS PROCESS ARCHITECT Devon Collado MD LAB MICROBIOLOGY - GENERAL ORDERABLES Edited Result - Final Performing Organization Address City/[facility] Co de Phone Number JOLLY SAMAYOA [address] [address] Department [place] [address] from Last 3 Months or Most Recently Relevant to Health Maintenance Insurance [facility] MDCR HMO REF [facility] MEDICARE ADVANTAGE Member Subscriber Plan / Payer (Ef fective 2022-Present) Name:Ashley Sebastian Relation to Subscriber:Self Name:Ashley Sebastian Payer ID:[id number] (NAIC) Type:UHC MEDICARE Address: [place] [id number] Member Subscriber Plan / Payer (Ef fective 2022-Present) Name:Ashley Sebastian Relation to Subscriber:Self Name:Ashley Sebastian Payer ID:[id number] (NAIC) Type:[facility] MEDICARE Address: [place] [phone] Advance Directives For more information, please contact: [phone] * Full Code (Latest Code Status on File) Date Activated Date Inactivated Comments 01/05/2023 2:20 PM 01/06/2023 9:10 PM * Full Code Date Activated Date Inactivated Comments 09/27/2019 7:18 AM 09/28/2019 8:28 PM Care Teams [employer] Obiee Developer Relationship Specialty Start Date End Date Devon Collado MD [address] [place] [address] PCP - General Family Medicine 07/13/22 Júnior Blevins MD [address] [place] [address] Referring Physician Internal Medicine 07/14/22 Timothy Lloyd MD [address] [facility] [address], [place] [id number] Consulting Physician Interventional Cardiology 07/14/22 [place] [address] [place] [address] Consulting Physician Neurosurgery 07/14/22 Lencho Sheets MD [address] DEPT OPHTHALMOLOGY, [address] [address] Surgeon Ophthalmology 07/14/22
--- OUTSIDE RECORDS SUMMARY | 2024-09-12 23:25 | XMS_ITS | Referral Summary ---
Author Organization [facility] Address [address] [place] [address] Care Team Providers Care Senior Maintenance Mechanic Name Role Phone Devon Collado MD Primary Care Provider [phone] Júnior Blevins MD Unavailable Timothy Lloyd MD Unavailable [phone] Vinnie Mehta MD Unavailable Lencho Sheets MD Unavailable Encounters Date Type Department Care Team Description 07/28/2024 ACO Quality [facility] Accountable Care Organization [address] [place] [address] Ciarra Navarrete [place] 07/21/2024 10:00 AM REEL STRIPPER Office Visit [facility] Medical Group Primary Care at [address] [phone] Devon Collado MD Encounter for Medicare annual wellness exam (Primary Dx); Primary hypertension; Acquired hypothyroidism; Vitamin D insufficiency; Colon cancer screening 07/15/2024 10:25 AM REEL STRIPPER - 07/15/2024 11:59 PM REEL STRIPPER Hospital Encounter [address] [phone] Primary hypertension; Acquired hypothyroidism Discharge Disposition: Discharge to home or self care 07/15/2024 2:45 PM REEL STRIPPER Lab [facility] Medical Group Outpatient Lab at [address] [address] Hypertension (Primary Dx); Hypothyroidism from Last 3 Months Allergies Active Allergy Reactions Criticality Noted Date [...] Unknown 10/03/2018 As a child. Medications multivit,Ca,iro j-WP-xtjspi-lut [id number] xr-kex-aui-mcg tabletIndicatio ns:supplement Take 1 tablet by mouth [...] mcg tablet TAKE ONE TABLET BY MOUTH PRINTING SCREEN ASSEMBLER BEFORE BREAKFAST 100 tablet 5 Active hydrALAZINE (APRESOLINE) 50 mg tabletIndicatio ns:hypertension Take 1 tablet (50 mg total) by mouth 3 (three) times a day 270 tablet 3 5 07/09/19 26 Active Active Problems Problem Noted Date Diagnosed Date Encounter for Medicare annual wellness exam 08/2024 Assessment & Plan (07/21/2024 10:33 AM REEL STRIPPER): A(n) yearly Medicare Annual Wellness Visit has [...] 07/13/2022 Assessment & Plan (07/13/2022 3:06 PM REEL STRIPPER): A(n) initial well visit to establish care [...] (10/21/2018): Added automatically from request for surgery [id number] Hypertension Junctional rhythm Hypothyroidism Overview (07/13/2022): acquired [...] She is in understanding of the plan. Immunizations Immunization Administration Dates Next Due Influenza, [...] TD Preservative Free 05/27/1997 ZOSTER Recombinant 12/07/2023,06/14/2023 Social History Tobacco Use Types Packs/Day Years [...] on file Legal Sex Female 12:56 AM REEL STRIPPER Gender Identity Not on file Sexual Orientation Not on file Last Filed Vital Signs Vital Sign Reading Time Taken Comments Blood Pressure 138/84 07/21/2024 10:13 AM REEL STRIPPER Pulse 57 07/21/2024 10:13 AM REEL STRIPPER Temperature 35.9 C (96.7 F) 07/21/2024 10:13 AM REEL STRIPPER Respiratory Rate 18 07/21/2024 10:13 AM REEL STRIPPER Oxygen Saturation 97% 07/21/2024 10:13 AM REEL STRIPPER Inhaled Oxygen Concentration - - Weight 73.9 kg (163 lb) 07/21/2024 10:13 AM REEL STRIPPER Height 167.6 cm (5' 6 ) 07/21/2024 10:13 AM REEL STRIPPER Body Mass Index 26.31 07/21/2024 10:13 AM REEL STRIPPER Plan of Treatment Not on file Medical Devices Implanted Type Area Cord Tire Builder Device Identifier Shelf Expiration Date Model / Serial / Lot Davol Inc/C R Bard Mesh Surgical Mid Anatomical Synthetic Patch 3dmax 4x6in [id number] - [id number] Implanted:Qty: 1 on 01/05/2023 by Donis Dewey MD at [facility] Right: Inguinal [employer]/C R Bard 08/15/2027 [id number] / / [id number] [employer]ol Inc/C R Bard Bard 3dmax 6x4in Seal Edge Groin Left Large 3d Curve Contour Mesh [id number] - [id number] Implanted:Qty: 1 on 01/05/2023 by Donis Dewey MD at [facility] Left: Inguinal [employer]/C R Bard 10/13/2025 [id number] / / [id number] Procedures Procedure Name Priority Date/Time Associated Diagnosis Comments EGFR Routine 07/15/2024 2:43 PM REEL STRIPPER Primary hypertension DIFFERENTIAL AUTO Routine 07/15/2024 2:4 3 PM REEL STRIPPER Primary hypertension THYROID FUNCTION CASCADE Routine 07/15/2024 2:43 PM REEL STRIPPER Acquired hypothyroidism CBC WITH AUTO DIFFERENTIAL Routine 07/15/2024 2:43 PM REEL STRIPPER Primary hypertension COMPREHENSIVE METABOLIC PANEL Routine 07/15/2024 2:43 PM REEL STRIPPER Primary hypertension LIPID PANEL Routine 07/15/2024 2:43 PM REEL STRIPPER Primary hypertension HEPATITIS C ANTIBODY Routine 07/18/2023 10:27 AM REEL STRIPPER Encounter for hepatitis C screening test for low risk patient from Last 3 Months or Most Recently Relevant to Health Maintenance Results * eGFR (07/15/2024 2:43 PM REEL STRIPPER) eGFR 63 >=60 mL/min/1. 73 m2 Comment: [...] last reviewed 2021. Blood 07/15/2024 2:43 PM REEL STRIPPER 07/15/2024 8:40 PM REEL STRIPPER us Devon Collado MD LAB BLOOD ORDERABLES Final Result JOLLY [address] [address] Department [place] [address] * Differential, auto (07/15/2024 2:43 PM REEL STRIPPER) Neutrophil abs 2.7 1.5 - 6.5 K/cumm Imm gran abs 0.0 0.0 - 0.1 K/cumm [facility] Lymphocyte abs 2.2 0.8 - 3.3 K/cumm [facility] Monocyte abs 0.6 0.2 - 0.8 K/cumm [facility] Eosinophil abs 0.3 0.0 - 0.5 K/cumm [facility] Basophil abs 0.0 0.0 - 0.1 K/cumm [facility] Neutrophil pct 46.3 % [facility] Comment: Interpretive Data Percent cell count reference ranges are not reported, since discordance with absolute values may lead to misinterpretation of CBC data. Current Interpretive Data was last revised on 2017. Imm gran pct 0.3 % [facility] Comment: Interpretive Data Percent cell count reference ranges are not reported, since discordance with absolute values may lead to misinterpretation of CBC data. Current Interpretive Data was last revised on 2017. Lymphocyte pct 37.0 % [facility] Comment: Interpretive Data Percent cell count reference ranges are not reported, since discordance with absolute values may lead to misinterpretation of CBC data. Current Interpretive Data was last revised on 2017. Monocyte pct 10.6 % [facility] Comment: Interpretive Data Percent cell count reference ranges are not reported, since discordance with absolute values may lead to misinterpretation of CBC data. Current Interpretive Data was last revised on 2017. Eosinophil pct 5.1 % [facility] Comment: Interpretive Data Percent cell count reference ranges are not reported, since discordance with absolute values may lead to misinterpretation of CBC data. Current Interpretive Data was last revised on 2017. Basophil pct 0.7 % [facility] Comment: Interpretive Data Percent cell count reference ranges are not reported, since discordance with absolute values may lead to misinterpretation of CBC data. Current Interpretive Data was last revised on 2017. Blood 07/15/2024 2:43 PM REEL STRIPPER 07/15/2024 8:26 PM REEL STRIPPER Devon Collado MD LAB BLOOD ORDERABLES Final Result Performing Organization Address City/[facility] Co de Phone Number JOLLY SAMAYOA [address] [address] Department of Laboratories [place], [place] [phone] * Thyroid Function [place] (07/15/2024 2:43 PM REEL STRIPPER) Pathologist [facility] TSH 0.36 0.30 - 4.20 mcIUnit/mL Blood 07/15/2024 2:43 PM REEL STRIPPER 07/15/2024 8:26 PM REEL STRIPPER Devon Collado MD LAB BLOOD ORDERABLES Final Result Performing Organization Address [facility] de Phone Number JOLLY [phone] [address] Department [place] [address] * (ABNORMAL) CBC with auto differential (07/15/2024 2:43 PM REEL STRIPPER) Pathologist [facility] WBC 5.9 3.8 - 9.9 K/cumm Hgb 13.2 11.9 - 15.5 g/dL [facility] Hct 41.0 35.6 - 45.5 % [facility] Plt 325 150 - 400 K/cumm [facility] MPV 9.9 9.1 - 12.3 fL [facility] RBC 4.48 3.90 - 5.20 M/cumm [facility] MCV 91.5 81.3 - 96.4 fL [facility] MCH 29.5 27.1 - 33.3 pg [facility] MCHC 32.2(L) 32.3 - 35.7 g/dL [facility] RDW CV 13.1 11.1 - 14.9 % [facility] RDW SD 44.3 35.7 - 48.1 fL [facility] NRBC abs 0.00 0.00 - 0.01 K/cumm JOLLY Blood 07/15/2024 2:43 PM REEL STRIPPER 07/15/2024 8:26 PM REEL STRIPPER us Devon Collado MD LAB BLOOD ORDERABLES Final Result JOLLY [address] [address] Department of Laboratories [place] [phone] * Lipid panel (07/15/2024 2:43 PM REEL STRIPPER) Cholesterol 154 30 - 199 mg/dL Comment: [...] 3. Justice Aguirre et al. SUGEY Cardiol. 2019October 16;5(5):540-548. doi: 10.1001/jamacardio.2020.0013 Current Interpretive Data was last revised on 2024. Non-HDL Cholesterol 103 mg/dL JOLLY Comment: Interpretive Data Ages < [...] ratio 3 JOLLY Blood 07/15/2024 2:43 PM REEL STRIPPER 07/15/2024 8:26 PM REEL STRIPPER us Devon Collado MD LAB BLOOD ORDERABLES Final Result JOLLY SAMAYOA [address] [address] [place] [address] * Comprehensive metabolic panel (07/15/2024 2:43 PM REEL STRIPPER) Sodium 139 135 - 145 mmol/L Potassium, [...] Units/L CERNER CH Blood 07/15/2024 2:43 PM REEL STRIPPER 07/15/2024 8:26 PM REEL STRIPPER us Devon Collado MD LAB BLOOD ORDERABLES Final Result JOLLY SAMAYOA [address] [address] Department [place] [address] * Hepatitis C antibody Blood (07/18/2023 10:27 AM REEL STRIPPER) Hep C Ab Nonreactive Nonreactive JOLLY SAMAYOA [...] on 2019. Blood 07/18/2023 10:2 7 AM REEL STRIPPER 07/18/2023 2:17 PM REEL STRIPPER us Devon Collado MD LAB MICROBIOLOGY - GENERAL ORDERABLES Edited Result - Final JOLLY SAMAYOA [address] [address] Department [place] [address] from Last 3 Months or Most Recently Relevant to Health Maintenance Insurance [facility] MDCR HMO REF [facility] MEDICARE Address: [facility] [address] [place] [address] [facility] MEDICARE ADVANTAGE [facility] MEDICARE Address: [address] [place] [address] [facility] MEDICARE ADVANTAGE [facility] MEDICARE Address: [id number] [place] [address] Advance Directives For more information, please contact: [phone] * Full Code (Latest Code Status on File) Date Activated Date Inactivated Comments 01/05/2023 2:20 PM 01/06/2023 9:10 PM * Full Code Date Activated Date Inactivated Comments 09/27/2019 7:18 AM 09/28/2019 8:28 PM Care Teams Senior Maintenance Mechanic Relationship Specialty Start Date End Date Devon Collado MD [address] [facility] [address] [place] [address] PCP - General Family Medicine 07/13/22 Júnior Blevins MD [address] [facility] [address] [place] [address] Referring Physician Internal Medicine 07/14/22 Timothy Lloyd MD [address] [place], [place] [address] Consulting Physician Interventional Cardiology 07/14/22 Vinnie Mehta MD [address] [address] Consulting Physician Neurosurgery 07/14/22 Lencho Sheets MD [address] DEPT OPHTHALMOLOGY, [facility] [address] [place] [address] Surgeon Ophthalmology 07/14/22
[2024-09-13] VITALS (9 sets, daily range): BP systolic 147–191; BP diastolic 66–89; PULSE 40–58; RESP 16–21; O2SAT 96–98
--- NOTE | 2024-09-13 00:24 | ECG_ITS ---
Test Date: 2024-09-13 00:35:26 Measurements Intervals [place] Rate: 40 P: 0 TX: 0 QRS: 48 QRSD: 65 T: 75 QT: 468 QTc: 382 Interpretive Statements MARKED SINUS BRADYCARDIA WITH JUNCTIONAL ESCAPE BEATS ANTEROSEPTAL MYOCARDIAL INFARCTION , OF INDETERMINATE AGE [40+ ms Q WAVE IN V1-V4] ABNORMAL ECG No previous ECG available for comparison Electronically Signed On 09-13-2024 10:02:28 CDT by Donis Rosenbaum M.D.
[2024-09-13 01:02] LABS: Basophils Absolute Auto 0.1 K/mm3 (0.0-0.1); Basophils Percent Auto 0.7 % (0.2-1.2); Eosinophils Absolute Auto 0.5 K/mm3 (0-0.3); Eosinophils Percent Auto 7.3 % (0-4.4); Hematocrit 40.5 % (37.0-47.0); Hemoglobin 13.3 g/dL (12.0-15.0); Immature Granulocyte Absolute 0.02 K/mm3 (0.00-0.031); Immature Granulocyte Percent A 0.3 % (0-0.5); Lymphocytes Absolute Auto 1.66 K/mm3 (0.9-3.2); Lymphocytes Percent Auto 23.7 % (18.3-44.2); Mean Corpuscular HGB Conc 32.8 g/dl (32-36); Mean Corpuscular Hemoglobin 29.8 pg (26-34); Mean Corpuscular Volume 90.8 fl (80-100); Mean Platelet Volume 9.4 fl (7.4-10.4); Monocytes Absolute Auto 0.7 K/mm3 (0.1-0.6); Monocytes Percent Auto 9.7 % (2.6-8.5); Neutrophils Absolute Auto 4.1 K/mm3 (1.3-6.7); Neutrophils Percent Auto 58.3 % (45.5-73.1); Platelet Count Result 303 k/mm3 (150-375); Red Blood Count 4.46 M/mm3 (4.2-5.4)
--- NOTE | 2024-09-13 01:03 | PC.NURSE ---
Kelin, pharmacist states that patient would be expected to be experiencing hypotension. Kelin states that patient would have peak symptoms at hour and half and does not suspect many more symptoms . Kelin states to have supportive care at this time.
--- NOTE | 2024-09-13 01:05 | PC.NURSE ---
Kelin from poision control states to observe patient until 0230 to assess patient for decline. Pharamists states that patient is cleared to take her daily dose.
--- OUTSIDE RECORDS SUMMARY | 2024-09-13 01:08 | XMS_ITS | Referral Summary ---
Author Organization [facility] Address [address] [place] [address] Care Team Providers Care Salvage Winder And Inspector Name Role Phone Devon Collado MD Primary Care Provider [phone] Júnior Blevins MD Unavailable Timothy Lloyd MD Unavailable [phone]- [phone] Vinnie Mehta MD Unavailable Lencho Sheets MD Unavailable Encounters Date Type Department Care Team Description 07/28/2024 ACO Quality [facility] Accountable Care Organization [address] [place] [address] Ciarra Navarrete [place] 07/21/2024 10:00 AM PUBLIC RELATIONS STUDIES DIRECTOR Office Visit [facility] Medical Group Primary Care at [address] [phone] Devon Collado MD Encounter for Medicare annual wellness exam (Primary Dx); Primary hypertension; Acquired hypothyroidism; Vitamin D insufficiency; Colon cancer screening 07/15/2024 10:25 AM PUBLIC RELATIONS STUDIES DIRECTOR - 07/15/2024 11:59 PM PUBLIC RELATIONS STUDIES DIRECTOR Hospital Encounter [address] [phone] Primary hypertension; Acquired hypothyroidism Discharge Disposition: Discharge to home or self care 07/15/2024 2:45 PM PUBLIC RELATIONS STUDIES DIRECTOR Lab [facility] Medical Group Outpatient Lab at [address] [address] Hypertension (Primary Dx); Hypothyroidism from [...] Unknown 10/03/2018 As a child. Medications multivit,Ca,iro v-QL-ccfjyf-lut [id number] tg-smw-dxc-mcg tabletIndicatio ns:supplement Take 1 tablet by mouth [...] mcg tablet TAKE ONE TABLET BY MOUTH COPPER PLATE PRINTER BEFORE BREAKFAST 100 tablet 5 Active hydrALAZINE (APRESOLINE) 50 mg tabletIndicatio ns:hypertension Take 1 tablet (50 mg total) by mouth 3 (three) times a day 270 tablet 3 5 07/09/19 26 Active Active Problems Problem Noted Date Diagnosed Date Encounter for Medicare annual wellness exam 08/2024 Assessment & Plan (07/21/2024 10:33 AM PUBLIC RELATIONS STUDIES DIRECTOR): A(n) yearly Medicare Annual Wellness Visit has [...] 07/13/2022 Assessment & Plan (07/13/2022 3:06 PM PUBLIC RELATIONS STUDIES DIRECTOR): A(n) initial well visit to establish care [...] (10/21/2018): Added automatically from request for surgery [id number] Hypertension Junctional rhythm Hypothyroidism Overview (07/13/2022): acquired [...] on file Legal Sex Female 12:56 AM PUBLIC RELATIONS STUDIES DIRECTOR Gender Identity Not on file Sexual Orientation Not on file Last Filed Vital Signs Vital Sign Reading Time Taken Comments Blood Pressure 138/84 07/21/2024 10:13 AM PUBLIC RELATIONS STUDIES DIRECTOR Pulse 57 07/21/2024 10:13 AM PUBLIC RELATIONS STUDIES DIRECTOR Temperature 35.9 C (96.7 F) 07/21/2024 10:13 AM PUBLIC RELATIONS STUDIES DIRECTOR Respiratory Rate 18 07/21/2024 10:13 AM PUBLIC RELATIONS STUDIES DIRECTOR Oxygen Saturation 97% 07/21/2024 10:13 AM PUBLIC RELATIONS STUDIES DIRECTOR Inhaled Oxygen Concentration - - Weight 73.9 kg (163 lb) 07/21/2024 10:13 AM PUBLIC RELATIONS STUDIES DIRECTOR Height 167.6 cm (5' 6 ) 07/21/2024 10:13 AM PUBLIC RELATIONS STUDIES DIRECTOR Body Mass Index 26.31 07/21/2024 10:13 AM PUBLIC RELATIONS STUDIES DIRECTOR Plan of Treatment Not on file Medical Devices Implanted Type Area [place] Seamer Device Identifier Shelf Expiration Date Model / Serial / Lot [employer] Inc/C R Bard Mesh Surgical Mid Anatomical Synthetic Patch 3dmax 4x6in [id number] - [id number] Implanted:Qty: 1 on 01/05/2023 by Donis Dewey MD at [facility] Right: Inguinal [employer]/C R Bard 08/15/2027 [id number] / / [id number] [employer]/C R Bard Bard 3dmax 6x4in Seal Edge Groin Left Large 3d Curve Contour Mesh [id number] - [id number] Implanted:Qty: 1 on 01/05/2023 by Donis Dewey MD at [facility] Left: Inguinal [employer]/C R Bard 10/13/2025 [id number] / / [id number] Procedures Procedure Name Priority Date/Time Associated Diagnosis Comments EGFR Routine 07/15/2024 2:43 PM PUBLIC RELATIONS STUDIES DIRECTOR Primary hypertension DIFFERENTIAL AUTO Routine 07/15/2024 2:4 3 PM PUBLIC RELATIONS STUDIES DIRECTOR Primary hypertension THYROID FUNCTION CASCADE Routine 07/15/2024 2:43 PM PUBLIC RELATIONS STUDIES DIRECTOR Acquired hypothyroidism CBC WITH AUTO DIFFERENTIAL Routine 07/15/2024 2:43 PM PUBLIC RELATIONS STUDIES DIRECTOR Primary hypertension COMPREHENSIVE METABOLIC PANEL Routine 07/15/2024 2:43 PM PUBLIC RELATIONS STUDIES DIRECTOR Primary hypertension LIPID PANEL Routine 07/15/2024 2:43 PM PUBLIC RELATIONS STUDIES DIRECTOR Primary hypertension HEPATITIS C ANTIBODY Routine 07/18/2023 10:27 AM PUBLIC RELATIONS STUDIES DIRECTOR Encounter for hepatitis C screening test for low risk patient from Last 3 Months or Most Recently Relevant to Health Maintenance Results * eGFR (07/15/2024 2:43 PM PUBLIC RELATIONS STUDIES DIRECTOR) eGFR 63 >=60 mL/min/1. 73 m2 Comment: [...] last reviewed 2021. Blood 07/15/2024 2:43 PM PUBLIC RELATIONS STUDIES DIRECTOR 07/15/2024 8:40 PM PUBLIC RELATIONS STUDIES DIRECTOR us Devon Collado MD LAB BLOOD ORDERABLES Final Result JOLLY [address] [address] Department [place] [address] * Differential, auto (07/15/2024 2:43 PM PUBLIC RELATIONS STUDIES DIRECTOR) Neutrophil abs 2.7 1.5 - 6.5 K/cumm Imm gran abs 0.0 0.0 - 0.1 K/cumm [facility] Lymphocyte abs 2.2 0.8 - 3.3 K/cumm [facility] Monocyte abs 0.6 0.2 - 0.8 K/cumm [facility] Eosinophil abs 0.3 0.0 - 0.5 K/cumm [facility] Basophil abs 0.0 0.0 - 0.1 K/cumm [facility] Neutrophil pct 46.3 % [facility] Comment: Interpretive Data Percent cell count reference ranges are not reported, since discordance with absolute values may lead to misinterpretation of CBC data. Current Interpretive Data was last revised on 2017. Imm gran pct 0.3 % [facility] Comment: Interpretive Data Percent cell count reference ranges are not reported, since discordance with absolute values may lead to misinterpretation of CBC data. Current Interpretive Data was last revised on 2017. Lymphocyte pct 37.0 % [facility] Comment: Interpretive Data Percent cell count reference ranges are not reported, since discordance with absolute values may lead to misinterpretation of CBC data. Current Interpretive Data was last revised on 2017. Monocyte pct 10.6 % [facility] Comment: Interpretive Data Percent cell count reference ranges are not reported, since discordance with absolute values may lead to misinterpretation of CBC data. Current Interpretive Data was last revised on 2017. Eosinophil pct 5.1 % [facility] Comment: Interpretive Data Percent cell count reference ranges are not reported, since discordance with absolute values may lead to misinterpretation of CBC data. Current Interpretive Data was last revised on 2017. Basophil pct 0.7 % [facility] Comment: Interpretive Data Percent cell count reference ranges are not reported, since discordance with absolute values may lead to misinterpretation of CBC data. Current Interpretive Data was last revised on 2017. Blood 07/15/2024 2:43 PM PUBLIC RELATIONS STUDIES DIRECTOR 07/15/2024 8:26 PM PUBLIC RELATIONS STUDIES DIRECTOR Devon Collado MD LAB BLOOD ORDERABLES Final Result Performing Organization Address City/[facility] Co de Phone Number JOLLY SAMAYOA [address] [address] Department of Laboratories [place], [place] [phone] * Thyroid Function [place] (07/15/2024 2:43 PM PUBLIC RELATIONS STUDIES DIRECTOR) Pathologist [facility] TSH 0.36 0.30 - 4.20 mcIUnit/mL Blood 07/15/2024 2:43 PM PUBLIC RELATIONS STUDIES DIRECTOR 07/15/2024 8:26 PM PUBLIC RELATIONS STUDIES DIRECTOR Devon Collado MD LAB BLOOD ORDERABLES Final Result Performing Organization Address [facility] de Phone Number JOLLY [address] [address] [place] [address] * (ABNORMAL) CBC with auto differential (07/15/2024 2:43 PM PUBLIC RELATIONS STUDIES DIRECTOR) Pathologist [facility] WBC 5.9 3.8 - 9.9 K/cumm Hgb 13.2 11.9 - 15.5 g/dL [facility] Hct 41.0 35.6 - 45.5 % [facility] Plt 325 150 - 400 K/cumm [facility] MPV 9.9 9.1 - 12.3 fL [facility] RBC 4.48 3.90 - 5.20 M/cumm [facility] MCV 91.5 81.3 - 96.4 fL [facility] MCH 29.5 27.1 - 33.3 pg [facility] MCHC 32.2(L) 32.3 - 35.7 g/dL [facility] RDW CV 13.1 11.1 - 14.9 % [facility] RDW SD 44.3 35.7 - 48.1 fL [facility] NRBC abs 0.00 0.00 - 0.01 K/cumm JOLLY Blood 07/15/2024 2:43 PM PUBLIC RELATIONS STUDIES DIRECTOR 07/15/2024 8:26 PM PUBLIC RELATIONS STUDIES DIRECTOR us Devon Collado MD LAB BLOOD ORDERABLES Final Result JOLLY [address] [address] Department of Laboratories [place] [phone] * Lipid panel (07/15/2024 2:43 PM PUBLIC RELATIONS STUDIES DIRECTOR) Cholesterol 154 30 - 199 mg/dL Comment: [...] ratio 3 JOLLY Blood 07/15/2024 2:43 PM PUBLIC RELATIONS STUDIES DIRECTOR 07/15/2024 8:26 PM PUBLIC RELATIONS STUDIES DIRECTOR us Devon Collado MD LAB BLOOD ORDERABLES Final Result JOLLY SAMAYOA [address] [address] [place] [address] * Comprehensive metabolic panel (07/15/2024 2:43 PM PUBLIC RELATIONS STUDIES DIRECTOR) Sodium 139 135 - 145 mmol/L Potassium, [...] Units/L CERNER CH Blood 07/15/2024 2:43 PM PUBLIC RELATIONS STUDIES DIRECTOR 07/15/2024 8:26 PM PUBLIC RELATIONS STUDIES DIRECTOR us Devon Collado MD LAB BLOOD ORDERABLES Final Result JOLLY SAMAYOA [address] [address] Department [place] [place] [place] [address] * Hepatitis C antibody Blood (07/18/2023 10:27 AM PUBLIC RELATIONS STUDIES DIRECTOR) Hep C Ab Nonreactive Nonreactive JOLLY SAMAYOA [...] on 2019. Blood 07/18/2023 10:2 7 AM PUBLIC RELATIONS STUDIES DIRECTOR 07/18/2023 2:17 PM PUBLIC RELATIONS STUDIES DIRECTOR us Devon Collado MD LAB MICROBIOLOGY - GENERAL ORDERABLES Edited Result - Final JOLLY SAMAYOA [address] [address] Department [place] [address] from Last 3 Months or Most Recently Relevant to Health Maintenance Insurance [facility] MDCR HMO REF [facility] MEDICARE ADVANTAGE [facility] MEDICARE ADVANTAGE Advance Directives For more information, please contact: [phone] * Full Code (Latest Code Status on File) Date Activated Date Inactivated Comments 01/05/2023 2:20 PM 01/06/2023 9:10 PM * Full Code Date Activated Date Inactivated Comments 09/27/2019 7:18 AM 09/28/2019 8:28 PM Care Teams Salvage Winder And Inspector Relationship Specialty Start Date End Date Devon Collado MD [address] [facility] [address] [place] [address] PCP - General Family Medicine 07/13/22 Júnior Blevins MD [address] [facility] [address] [place] [address] Referring Physician Internal Medicine 07/14/22 Timothy Lloyd MD [address] [address] Consulting Physician Interventional Cardiology 07/14/22 Vinnie Mehta MD [address] [address] Consulting Physician Neurosurgery 07/14/22 Lencho Sheets MD [address] DEPT OPHTHALMOLOGY, [facility] [address] [place] [address] Surgeon Ophthalmology 07/14/22
--- OUTSIDE RECORDS SUMMARY | 2024-09-13 01:08 | XMS_ITS ---
Author Organization [facility] Address [address] [place] [address] Care Team Providers Care Assistant Boiler Operator Name Role Phone Devon Collado MD Primary Care Provider [phone] Júnior Blevins MD Unavailable Timothy Lloyd MD Unavailable [phone] Vinnie Mehta MD Unavailable Lencho Sheets MD Unavailable [phone] Active Problems Problem Noted Date Diagnosed Date Encounter for Medicare annual wellness exam 08/2024 Assessment & Plan (07/21/2024 10:33 AM LICENSED ACUPUNCTURIST): A(n) yearly Medicare Annual Wellness Visit has [...] 07/13/2022 Assessment & Plan (07/13/2022 3:06 PM LICENSED ACUPUNCTURIST): A(n) initial well visit to establish care [...]
--- OUTSIDE RECORDS SUMMARY | 2024-09-13 01:08 | XMS_ITS | Clinical Summary ---
Author Organization [facility] Address [address] [place] [address] Care Team Providers Care Recycling Crew Supervisor Name Role Phone Devon Collado MD Primary Care Provider [phone] Júnior Blevins MD Unavailable Timothy Lloyd MD Unavailable [phone] Vinnie Mehta MD Unavailable [phone] Lencho Sheets MD Unavailable [phone] Allergies Active Allergy Reactions Criticality Noted Date [...] Unknown 10/03/2018 As a child. Medications multivit,Ca,iro m-BN-uallfi-lut [phone] gh-cso-tff-mcg tabletIndicatio ns:supplement Take 1 tablet by mouth [...] mcg tablet TAKE ONE TABLET BY MOUTH POWER SHOVEL OPERATOR BEFORE BREAKFAST 100 tablet 5 Active hydrALAZINE (APRESOLINE) 50 mg tabletIndicatio ns:hypertension Take 1 tablet (50 mg total) by mouth 3 (three) times a day 270 tablet 3 5 07/09/19 26 Active Active Problems Problem Noted Date Diagnosed Date Encounter for Medicare annual wellness exam 08/2024 Assessment & Plan (07/21/2024 10:33 AM GAMING DIRECTOR): A(n) yearly Medicare Annual Wellness Visit [...] 07/13/2022 Assessment & Plan (07/13/2022 3:06 PM GAMING DIRECTOR): A(n) initial well visit to establish [...] (10/21/2018): Added automatically from request for surgery [id number] Hypertension Junctional rhythm Hypothyroidism Overview (07/13/2022): acquired [...] 07/28/2024 [facility] Organization [address] [place] [address] Ciarra Navarrete [place] 07/21/2024 10:00 AM GAMING DIRECTOR Office Visit [facility] Primary Care at [address] [address] Devon Collado MD Encounter for Medicare annual wellness exam (Primary Dx); Primary hypertension; Acquired hypothyroidism; Vitamin D insufficiency; Colon cancer screening 07/15/2024 2:45 PM GAMING DIRECTOR Lab [facility] Outpatient Lab at [address] [address] Hypertension (Primary Dx); Hypothyroidism 07/15/2024 10:25 AM GAMING DIRECTOR - 07/15/2024 11:59 PM GAMING [place] [address] Primary hypertension; Acquired hypothyroidism Discharge Disposition: Discharge [...] on file Legal Sex Female 12:56 AM GAMING DIRECTOR Gender Identity Not on file Sexual Orientation Not on file Obstetrics History Last Filed Vital Signs Vital Sign Reading Time Taken Comments Blood Pressure 138/84 07/21/2024 10:13 AM GAMING DIRECTOR Pulse 57 07/21/2024 10:13 AM GAMING DIRECTOR Temperature 35.9 C (96.7 F) 07/21/2024 10:13 AM GAMING DIRECTOR Respiratory Rate 18 07/21/2024 10:13 AM GAMING DIRECTOR Oxygen Saturation 97% 07/21/2024 10:13 AM GAMING DIRECTOR Inhaled Oxygen Concentration - - Weight 73.9 kg (163 lb) 07/21/2024 10:13 AM GAMING DIRECTOR Height 167.6 cm (5' 6 ) 07/21/2024 10:13 AM GAMING DIRECTOR Body Mass Index 26.31 07/21/2024 10:13 AM GAMING DIRECTOR Plan of Treatment Health Maintenance Due Date [...] history exists Medical Devices Implanted Type Area Lag Screwer Device Identifier Shelf Expiration Date Model / Serial / Lot [employer]/C R Bard Mesh Surgical Mid Anatomical Synthetic Patch 3dmax 4x6in [id number] - [id number] Implanted:Qty: 1 on 01/05/2023 by Donis Dewey MD at [facility] Right: Inguinal [employer]/C R Bard 08/15/2027 [id number] / / [id number] [employer]/C R Bard Bard 3dmax 6x4in Seal Edge Groin Left Large 3d Curve Contour Mesh [id number] - [id number] Implanted:Qty: 1 on 01/05/2023 by Donis Dewey MD at [facility] Left: Inguinal [employer]/C R Bard 10/13/2025 [id number] / / [id number] Procedures Procedure Name Priority Date/Time Associated Diagnosis Comments EGFR Routine 07/15/2024 2:43 PM GAMING DIRECTOR Primary hypertension DIFFERENTIAL AUTO Routine 07/15/2024 2:4 3 PM GAMING DIRECTOR Primary hypertension THYROID FUNCTION CASCADE Routine 07/15/2024 2:43 PM GAMING DIRECTOR Acquired hypothyroidism CBC WITH AUTO DIFFERENTIAL Routine 07/15/2024 2:43 PM GAMING DIRECTOR Primary hypertension COMPREHENSIVE METABOLIC PANEL Routine 07/15/2024 2:43 PM GAMING DIRECTOR Primary hypertension LIPID PANEL Routine 07/15/2024 2:43 PM GAMING DIRECTOR Primary hypertension HEPATITIS C ANTIBODY Routine 07/18/2023 10:27 AM GAMING DIRECTOR Encounter for hepatitis C screening test for low risk patient from Last 3 Months or Most Recently Relevant to Health Maintenance Results * eGFR (07/15/2024 2:43 PM GAMING DIRECTOR) eGFR 63 >=60 mL/min/1. 73 m2 [...] last reviewed 2021. Blood 07/15/2024 2:43 PM GAMING DIRECTOR 07/15/2024 8:40 PM GAMING DIRECTOR us Devon Collado MD LAB BLOOD ORDERABLES Final Result Performing Organization Address City/State/ZIP Co nm Phone Number [facility] [address] Department [place] [address] * Differential, auto (07/15/2024 2:43 PM GAMING DIRECTOR) Neutrophil abs 2.7 1.5 - 6.5 K/cumm Imm gran abs 0.0 0.0 - 0.1 K/cumm [facility] Lymphocyte abs 2.2 0.8 - 3.3 K/cumm [facility] Monocyte abs 0.6 0.2 - 0.8 K/cumm [facility] Eosinophil abs 0.3 0.0 - 0.5 K/cumm [facility] Basophil abs 0.0 0.0 - 0.1 K/cumm [facility] Neutrophil pct 46.3 % [facility] Comment: Interpretive Data Percent cell count reference ranges are not reported, since discordance with absolute values may lead to misinterpretation of CBC data. Current Interpretive Data was last revised on 2017. Imm gran pct 0.3 % [facility] Comment: Interpretive Data Percent cell count reference ranges are not reported, since discordance with absolute values may lead to misinterpretation of CBC data. Current Interpretive Data was last revised on 2017. Lymphocyte pct 37.0 % [facility] Comment: Interpretive Data Percent cell count reference ranges are not reported, since discordance with absolute values may lead to misinterpretation of CBC data. Current Interpretive Data was last revised on 2017. Monocyte pct 10.6 % [facility] Comment: Interpretive Data Percent cell count reference ranges are not reported, since discordance with absolute values may lead to misinterpretation of CBC data. Current Interpretive Data was last revised on 2017. Eosinophil pct 5.1 % [facility] Comment: Interpretive Data Percent cell count reference ranges are not reported, since discordance with absolute values may lead to misinterpretation of CBC data. Current Interpretive Data was last revised on 2017. Basophil pct 0.7 % [facility] Comment: Interpretive Data Percent cell count reference ranges are not reported, since discordance with absolute values may lead to misinterpretation of CBC data. Current Interpretive Data was last revised on 2017. Blood 07/15/2024 2:43 PM GAMING DIRECTOR 07/15/2024 8:26 PM GAMING DIRECTOR Devon Collado MD LAB BLOOD ORDERABLES Final Result Performing Organization Address City/[facility]/ZIP Co de Phone Number [facility] [address] [place] [address] * Thyroid Function [place] (07/15/2024 2:43 PM GAMING DIRECTOR) Pathologist [facility] TSH 0.36 0.30 - 4.20 mcIUnit/mL Blood 07/15/2024 2:43 PM GAMING DIRECTOR 07/15/2024 8:26 PM GAMING DIRECTOR Devon Collado MD LAB BLOOD ORDERABLES Final Result Performing Organization Address City/[facility] Co de Phone Number JOLLY SAMAY[facility] [address] [place] [address] * (ABNORMAL) CBC with auto differential (07/15/2024 2:43 PM GAMING DIRECTOR) WBC 5.9 3.8 - 9.9 K/cumm Hgb 13.2 11.9 - 15.5 g/dL [facility] Hct 41.0 35.6 - 45.5 % [facility] Plt 325 150 - 400 K/cumm [facility] MPV 9.9 9.1 - 12.3 fL [facility] RBC 4.48 3.90 - 5.20 M/cumm [facility] MCV 91.5 81.3 - 96.4 fL [facility] MCH 29.5 27.1 - 33.3 pg [facility] MCHC 32.2(L) 32.3 - 35.7 g/dL [facility] RDW CV 13.1 11.1 - 14.9 % JOLLY RDW SD 44.3 35.7 - 48.1 fL [facility] NRBC abs 0.00 0.00 - 0.01 K/cumm [facility] Blood 07/15/2024 2:43 PM GAMING DIRECTOR 07/15/2024 8:26 PM GAMING DIRECTOR Devon Collado MD LAB BLOOD ORDERABLES Final Result [facility] [address] Department [place] [address] * Lipid panel (07/15/2024 2:43 PM GAMING DIRECTOR) Cholesterol 154 30 - 199 mg/dL [...] ratio 3 JOLLY Blood 07/15/2024 2:43 PM GAMING DIRECTOR 07/15/2024 8:26 PM GAMING DIRECTOR Devon Collado MD LAB BLOOD ORDERABLES Final Result Performing Organization Address City/State/[facility] [place] [address] [address] Department [place] [address] * Comprehensive metabolic panel (07/15/2024 2:43 PM GAMING DIRECTOR) Sodium 139 135 - 145 mmol/L [...] Units/L [facility] Blood 07/15/2024 2:43 PM GAMING DIRECTOR 07/15/2024 8:26 PM GAMING DIRECTOR Devon Collado MD LAB BLOOD ORDERABLES Final Result Performing Organization Address [facility] Co de Phone Number JOLLY SAM[facility]OA [address] Department [place] [address] * Hepatitis C antibody Blood (07/18/2023 10:27 AM GAMING DIRECTOR) Hep C Ab Nonreactive Nonreactive JOLLY [...] on 2019. Blood 07/18/2023 10:2 7 AM GAMING DIRECTOR 07/18/2023 2:17 PM GAMING DIRECTOR Devon Collado MD LAB MICROBIOLOGY - GENERAL ORDERABLES Edited Result - Final Performing Organization Address City/[facility] Co de Phone Number JOLLY SAMAYOA [address] Department [place] [address] from Last 3 Months or Most Recently Relevant to Health Maintenance Insurance [employer] H[employer] REF [employer] Member Subscriber Plan / Payer (Ef fective 2022-Present) Name:Ashley Sebastian Relation to Subscriber:Self Name:Ashley Sebastian Payer ID:[id number] (NAIC) Type:[employer] MEDICARE Address: [place] [id number] Member Subscriber Plan / Payer (Ef fective 2022-Present) Name:Ashley Sebastian Relation to Subscriber:Self Name:Ashley Sebastian Payer ID:[id number] (NAIC) Type:[employer] Address: [place] [phone] Advance Directives For more information, please contact: [phone] * Full Code (Latest Code Status on File) Date Activated Date Inactivated Comments 01/05/2023 2:20 PM 01/06/2023 9:10 PM * Full Code Date Activated Date Inactivated Comments 09/27/2019 7:18 AM 09/28/2019 8:28 PM Care Teams Recycling Crew Supervisor Relationship Specialty Start Date End Date Devon Collado MD [address] [place] [address] PCP - General Family Medicine 07/13/22 Júnior Blevins MD [address] [place] [address] Referring Physician Internal Medicine 07/14/22 Timothy Lloyd MD [address] [facility] [address], [place] [id number] Consulting Physician Interventional Cardiology 07/14/22 [place] [address] [place] [address] Consulting Physician Neurosurgery 07/14/22 Lencho Sheets MD [address] DEPT OPHTHALMOLOGY, [address] [address] Surgeon Ophthalmology 07/14/22
[2024-09-13 01:11] LABS: Acetaminophen < 10 ug/mL (10-30); Alanine Aminotransferase 18 U/L (6-35); Albumin Level 4.2 g/dL (3.5-5.1); Alkaline Phosphatase 60 U/L (38-126); Anion Gap 10 mmol/L (4-12); Aspartate Amino Transferase 24 U/L (14-36); Bilirubin,Total 1.4 mg/dL (0.2-1.3); Blood Urea Nitrogen 25 mg/dL (7-17); Calcium 8.8 mg/dL (8.4-10.2); Carbon Dioxide 25 mmol/L (22-30); Chloride 104 mmol/L (98-107); Estimated CRCL calculation 51 ml/min; Estimated Glomerular Filt Rate > 60; Ethanol < 10 mg/dL (<10); Glucose 114 mg/dL (65-110); Potassium 4.2 mmol/L (3.4-5.0); Salicylate < 1.0 mg/dL (2-20); Sodium 139 mmol/L (137-145)
[2024-09-13 01:37] LABS: SARS-CoV-2 RNA PCR Negative (Negative)
[2024-09-13 01:41] LABS: Thyroid Stimulating Hormone 0.395 uIU/mL (0.465-4.680)
--- NOTE | 2024-09-13 03:18 | ED_ITS ---
HPI - General Adult General Chief complaint: Overdose Stated complaint: accidental overdose on bp med Time Seen by Provider: 09/13/24 00:55 History of Present Illness HPI narrative: This is a 73-year-old female presenting ED after an accidental drug overdose. Patient accidentally took her nighttime hypertension meds twice. She took carvedilol 12.5 mg, hydralazine 50 mg and losartan 50 mg. She is currently asymptomatic and has no complaints. Related Data Home Medications ?Medication ?Instructions ?Recorded ?Confirmed ?Last Taken ?Type cholecalciferol (vitamin D3) 50 50 mcg PO DAILY 11/21/20 01/31/24 Unknown History mcg (2,000 unit) tablet multivitamin 1 tablet PO DAILY 03/01/21 01/31/24 Unknown History Allergies Allergy/AdvReac Type Severity Reaction Status Date / Time anise oil Allergy Severe Wheezing Verified 01/31/24 10:17 atenolol Allergy Intermediate Dyspnea / Verified 01/31/24 10:17 SOB Penicillins Allergy Unknown Unknown Verified 01/31/24 10:17 - A CHILD sertraline (From Zoloft) AdvReac Intermediate Diarrhea Verified 01/31/24 10:17 amlodipine AdvReac Mild forgetfulln Verified 01/31/24 10:17 ess amoxicillin (From Augmentin) AdvReac Unknown Unknown Verified 01/31/24 10:17 clavulanic acid (From AdvReac Unknown Unknown Verified 01/31/24 10:17 Augmentin) fennel Allergy Severe Difficulty Uncoded 01/31/24 10:17 Breathing PMFSH Past Medical History Medical History Diastolic dysfunction without heart failure Noted on echocardiogram March 2019 Uncontrolled hypertension (Unknown) Acquired cataract Calculus of gallbladder with cholecystitis without biliary obstruction Elevated bilirubin Generalized anxiety disorder Other specified disorders of tendon, right wrist Dyshidrotic eczema (~1996) Uncontrolled hypertension Intracranial hemorrhage Malignant essential hypertension History of torn meniscus of right knee Chronic cholecystitis with calculus Cholelithiases GERD (gastroesophageal reflux disease) (Unknown) Hypersomnia PAT (paroxysmal atrial tachycardia) 1st degree AV block BRADLEY (dyspnea on exertion) Dyslipidemia Ectopic atrial rhythm Essential hypertension (~03/1997) Obstructive sleep apnea Surgical History Surgical History History of laparoscopy Operative laparoscopy with lysis of adhesions and release of small-bowel obstruction 01/29/21 Hx laparoscopic cholecystectomy (07/2019) S/P nasal polypectomy (~1964) S/P cholecystectomy (~07/2019) H/O eye surgery (~2018) left S/P removal of thyroid nodule (~1990) Hx of tonsillectomy (~1954) H/O: hysterectomy (~1987) Family History Family History Father Family history of malignant neoplasm Grandparent Family history of Parkinson's disease Social History Social History Smoking status: Never smoker Second hand tobacco smoke exposure: Yes (long time ago ) Alcohol intake: current Alcohol use details: rarely Substance use: never Substance use type: unknown Living arrangements: alone Gender identity (if verbalized by the patient): Female Spiritual care concerns: No Agree to blood products: Yes Exam 2 Narrative: APPEARANCE: No apparent distress. A&O x3 Head: atraumatic. EYES: EOMI, NOSE: Atraumatic NECK: Trachea midline RESPIRATORY: No increased rate of breathing clear to auscultation CARDIOVASCULAR: Bradycardic no peripheral edema ABDOMINAL: Non-distended soft nontender MUSCULOSKELETAl: No obvious deformities NEURO: Alert. Moving 4/4 extremities SKIN:: Warm, dry. Normal color PSYCHIATRIC: Normal affect Course Vital Signs Vital signs: Vital Signs Temperature 97.5 F L 09/12/24 23:24 Pulse Rate 51 L 09/12/24 23:24 Respiratory Rate 18 09/12/24 23:24 Blood Pressure 145/75 H 09/12/24 23:24 Pulse Oximetry 98 09/12/24 23:24 Oxygen Delivery Room Air 09/12/24 23:24 Temperature 97.5 F L 09/12/24 23:24 Pulse Rate 50 L 09/13/24 02:46 Respiratory Rate 21 H 09/13/24 02:46 Blood Pressure 147/75 H 09/13/24 02:46 Pulse Oximetry 96 09/13/24 02:46 Oxygen Delivery Room Air 09/13/24 00:41 Medical Decision Making MDM Narrative Medical decision making narrative: -Course: 73-year-old female presenting after an accidental overdose on hypertension meds. She was bradycardic on arrival but stable blood pressures and normal mental status. Poison Control was contacted and recommended we monitor her until 2:30 a.m.. We spoke with poison Control again at 3:00 a.m. and she the patient has been cleared for discharge. Patient will be discharged with return precautions. -DDX includes but is not limited to: Accidental overdose, symptomatic bradycardia Vital Signs Vital Signs: Vital Signs Temperature 97.5 F L 09/12/24 23:24 Pulse Rate 51 L 09/12/24 23:24 Respiratory Rate 18 09/12/24 23:24 Blood Pressure 145/75 H 09/12/24 23:24 Pulse Oximetry 98 09/12/24 23:24 Oxygen Delivery Room Air 09/12/24 23:24 Temperature 97.5 F L 09/12/24 23:24 Pulse Rate 50 L 09/13/24 02:46 Respiratory Rate 21 H 09/13/24 02:46 Blood Pressure 147/75 H 09/13/24 02:46 Pulse Oximetry 96 09/13/24 02:46 Oxygen Delivery Room Air 09/13/24 00:41 Lab Data 09/13/24 00:55 09/13/24 00:55 Labs: Lab Results 09/13/24 Range/Units 00:55 WBC 7.0 (4.5-10.0) K/mm3 RBC 4.46 (4.2-5.4) M/mm3 Hgb 13.3 (12.0-15.0) g/dL Hct 40.5 (37.0-47.0) % MCV 90.8 (80-100) fl MCH 29.8 (26-34) pg MCHC 32.8 (32-36) g/dl RDW 14.0 (11.5-14.5) % Plt Count 303 (150-375) k/mm3 MPV 9.4 (7.4-10.4) fl Immature Gran % (Auto) 0.3 (0-0.5) % Neut % (Auto) 58.3 (45.5-73.1) % Lymph % (Auto) 23.7 (18.3-44.2) % [place] % (Auto) 9.7 H (2.6-8.5) % Eos % (Auto) 7.3 H (0-4.4) % Baso % (Auto) 0.7 (0.2-1.2) % Lymph # (Auto) 1.66 (0.9-3.2) K/mm3 [place] # (Auto) 0.7 H (0.1-0.6) K/mm3 Eos # (Auto) 0.5 H (0-0.3) K/mm3 Baso # (Auto) 0.1 (0.0-0.1) K/mm3 Abs Immat Gran (auto) 0.02 (0.00-0.031) K/mm3 Absolute Neuts (auto) 4.1 (1.3-6.7) K/mm3 Absolute Nucleated RBC 0.000 (0.0-0.012) K/mm3 Nucleated RBC % 0.0 (0.0-0.2) % Sodium 139 (137-145) mmol/L Potassium 4.2 (3.4-5.0) mmol/L Chloride 104 (98-107) mmol/L Carbon Dioxide 25 (22-30) mmol/L Anion Gap 10 (4-12) mmol/L BUN 25 H (7-17) mg/dL Creatinine 0.88 (0.7-1.0) mg/dL Estim Creat Clear Calc 51 ml/min Estimated GFR > 60 (59 - ) Glucose 114 H (65-110) mg/dL Calcium 8.8 (8.4-10.2) mg/dL Total Bilirubin 1.4 H (0.2-1.3) mg/dL AST 24 (14-36) U/L ALT 18 (6-35) U/L Alkaline Phosphatase 60 (38-126) U/L Total Protein 7.0 (6.3-8.2) g/dL Albumin 4.2 (3.5-5.1) g/dL TSH 0.395 L (0.465-4.680) uIU/mL Salicylates < 1.0 L (2-20) mg/dL Acetaminophen < 10 L (10-30) ug/mL Ethyl Alcohol < 10 (<10) mg/dL SARS-CoV-2 RNA (RT-PCR) Negative (Negative) Discharge Plan Discharge Clinical Impression: Overdose Patient Disposition: Home, Self-Care Condition: Stable Instructions: Antibiotic Form Additional Instructions: Please be careful when taking her medications. Develop any new or worsening symptoms he can return to ED for re-evaluation. Patient Language: Prydeinig Prescriptions: No Action multivitamin Tablet 1 tablet PO DAILY cholecalciferol (vitamin D3) 50 mcg (2,000 unit) tablet 50 mcg PO DAILY calcium carbonate 500 mg calcium (1,250 mg) tablet 500 mg PO DAILY Qty: 90 1RF losartan 50 mg tablet See Rx Instructions .ROUTE .COMPLEX Qty: 180 2RF Dose Instruction: TAKE 1 TABLET BY MOUTH TWICE DAILY Rx Instructions: TAKE 1 TABLET BY MOUTH TWICE DAILY hydralazine 50 mg tablet 50 mg PO TID Qty: 270 0RF levothyroxine [Euthyrox] 75 mcg tablet 75 mcg PO DAILY Qty: 90 1RF carvedilol 12.5 mg tablet See Rx Instructions .ROUTE .COMPLEX Qty: 180 1RF Dose Instruction: TAKE 1 TABLET BY MOUTH EVERY 12 HOURS Rx Instructions: TAKE 1 TABLET BY MOUTH EVERY 12 HOURS Follow-up/Referrals: Heaven,Devon Rodriguez MD [Primary Care Provider] -
== END 2024-09-13 03:44 | disposition home or self-care (01) ==
PROVIDERS: Emergency Provider Emergency Medicine; PCP Family Medicine
DX: T50.991A Poisoning by other drugs, medicaments and biological substances, accidental (unintentional), initial encounter (principal); I10 Essential (primary) hypertension; Z20.822 Contact with and (suspected) exposure to COVID-19
CPT/HCPCS: 36415; 80053; 80143; 80179; 82077; 84443; 85025; 87635; 93005; 99284

== ENCOUNTER 2024-11-18 10:00 | Outpatient (RCR) | payer MEDICARE, SELFPAY ==
--- NOTE | 2024-10-15 12:02 | OPREHPOC ---
Outpatient Therapy Plan of Care This is a Multidisciplinary Plan of Care that may contain components documented by all disciplines (PT, OT, and ST.) PT Problem 1 PT Problem #1 Knowledge Deficit PT Goal 1 Goal / Goal Update *independent with HEP Target Visit 10 PT Problem 2 PT Problem #2 Pain PT Goal 1 Goal / Goal Update * pt report pain rating at worst of back, 5/10 Target Visit 10 PT Problem 3 PT Problem #3 Impaired Strength PT Goal 1 Goal / Goal Update * increase strength of trunk and hips to 4+/5, to improve stability to spine and posture Target Visit 10 PT Problem 4 PT Problem #4 Impaired Functional Mobility PT Goal 1 Goal / Goal Update * 2 minute walking test distance of 400' Target Visit 10
--- NOTE | 2024-10-15 12:02 | PTOPEVAL1 ---
Assessment and note entered by Esperanza Saldana, PT Evaluation Information Assessment Status Evaluation ICD-10 Condition Codes (PT) Pain in low back M54.50 Onset few months ago Subjective Information problems with chronic back pain, recently more pain with doing more; no trauma or injury to back; have had PT in the past--exercises, stim & modalities helped no recent imaging; activity: is able to perform all of her self care and home tasks, no assistance required; Reported Pain Level Pain Score Self Report Additional Pain Score Comments pain range in the past week: 3-8 10 R and L lumbar- no radicular pain also has R knee pain/arthritis, feels that bothers her back too increase pain: reports walking/standing tolerance 15 minutes- R knee and low back pain decrease pain: sit, rest, over the counter, watch what she does and tries not to aggravate it not using heat/ice- not really help, not worth the effort it takes to do it; report with sleeping-can sleep without back pain awakening her Assessment PT Clinical Summary Ashley has the diagnosis of chronic back pain, without radicular pain. She reports issues with chronic back pain and R knee pain. She has had PT in the past for her back and it helped, and she continues to do some of the exercises at home. She is active and independent. Walking and standing tolerance is limited due to back and R knee pain. Self assessment Oswestry rating of 32% limitation in activity level. With the evaluation: she has good flexibility of hips with decreased lumbar mobility; decrease strength of trunk and hips; pain with R knee flexion and extension motions, very guarded with moving; stands with forward rotation of R shoulder, trunk and hip. Skilled PT services are indicated for modalities to decrease pain; therapeutic exercises to increase strength of trunk and hips, with education for HEP and posture/body mechanics. Plan of Care Interventions Electrical Stimulation,Hot Pack/Cold Pack,Manual Therapy,Mechanical Traction,Neuro Re-education, Patient/Caregiver Education,Therapeutic Activities ,Therapeutic Exercise,Ultrasound,Other Other Interventions taping PT Services Indicated Yes Treatment Frequency and 1-2x/wk for 10 visits Duration These treatments will address the objective and functional deficits as defined above. The patient will be advanced safely and appropriately in order for the patient to progress towards his/her prior level of function. Additional exercises will be introduced and as well as a comprehensive home exercise program upon discharge, if needed, ?to ensure carryover of functional gains achieved in the clinic. This treatment plan has been reviewed and agreement upon by the patient.
--- NOTE | 2024-11-18 10:43 | OPREHPOC ---
Outpatient Therapy Plan of Care This is a Multidisciplinary Plan of Care that may contain components documented by all disciplines (PT, OT, and ST.) PT Problem 1 PT Problem #1 Knowledge Deficit PT Goal 1 Goal / Goal Update *independent with HEP 6-3-25 d/c goal met Target Visit 10 Progress Met PT Problem 2 PT Problem #2 Pain PT Goal 1 Goal / Goal Update * pt report pain rating at worst of back, 10/25 6--25 d/c goal met Target Visit 10 Progress Met PT Problem 3 PT Problem #3 Impaired Strength PT Goal 1 Goal / Goal Update * increase strength of trunk and hips to 4+/5, to improve stability to spine and posture 6--25 d/c goal met Target Visit 10 Progress Met PT Problem 4 PT Problem #4 Impaired Functional Mobility PT Goal 1 Goal / Goal Update * 2 minute walking test distance of 400' --25 d/c goal met Target Visit 10 Progress Met
--- NOTE | 2024-11-18 10:43 | PTOPDC ---
Assessment and note entered by Esperanza Saldana, PT Assessment Status Discharge ICD-10 Condition Codes (PT) Pain in low back M54.50 Onset few months ago Subjective Information back is much better, can do some things and it does not hurt my back, when it used to hurt; therapy has really helped my back; have been doing the exercises and they help; R knee is giving her some pain; have not been using the cane; is doing everything and not having as much pain; pays attention to how she does things to protect her back. Ready to be finished with therapy. Reported Pain Level Pain Score Self Report Additional Pain Score Comments pain range in the past week 0-4/10 Assessment PT Clinical Summary Ashley has received 10 PT sessions. She has improved in all areas: pain rating 0-4/10 self assessment with back index rating of 16% limitation in activity level; increase strength of trunk and hips; 2 minute walking test distance of 450' without pain increase in back; improved body mechanics and posture/awareness of position; education completed for HEP. The goals were achieved. Discharge PT. She is to continue with her HEP and monitor activity and body mechanics. Plan of Care PT Services Indicated No
== END 2024-11-18 14:19 | disposition home or self-care (01) ==
LOC: ANHPT 10:00
PROVIDERS: PCP Family Medicine; Visit Provider Nurse Practitioner Family
DX: M54.50 Low back pain, unspecified (principal); G89.29 Other chronic pain
CPT/HCPCS: 97110; 97116; 97140; 97161; 97530